=== PATIENT | male | born 1960 | race Caucasian/White ===

== ENCOUNTER 2019-07-08 10:01 | Outpatient (CLI) | payer OTHER, MEDICARE, SELFPAY ==
[2019-07-08 10:44] LABS: Alanine Aminotransferase 24 U/L (4-50); Albumin Level 4.6 g/dL (3.5-5.1); Alkaline Phosphatase 53 U/L (38-126); Aspartate Amino Transferase 28 U/L (17-59); Bilirubin,Total 0.6 mg/dL (0.2-1.3); Blood Urea Nitrogen 20 mg/dL (9-20); Calcium 9.3 mg/dL (8.4-10.2); Carbon Dioxide 28 mmol/L (22-30); Chloride 98 mmol/L (98-107); Cholesterol 193 mg/dL (0-200); Estimated Glomerular Filt Rate > 60; Glucose 165 mg/dL (75-110); HDL Direct 31 mg/dL; Potassium 4.8 mmol/L (3.4-5.0); Sodium 140 mmol/L (137-145); Triglycerides 258 mg/dL (<150)
[2019-07-08 10:55] LABS: LDL Cholesterol Direct 128 mg/dL
[2019-07-08 11:13] LABS: Prostate Specific Antigen 0.3 ng/mL (< OR = 4.0)
== END 2019-07-08 10:02 | disposition home or self-care (01) ==
PROVIDERS: Visit Provider Nurse Practitioner
DX: Z12.5 Encounter for screening for malignant neoplasm of prostate (principal); E78.5 Hyperlipidemia, unspecified
CPT/HCPCS: 36415; 80053; 80061; 84153; G0103

== ENCOUNTER 2019-11-17 08:27 | Outpatient (CLI) | payer OTHER, MEDICARE, SELFPAY ==
[2019-11-17 09:21] LABS: Add Urine Microscopic? YES; Appearance Urine Clear (Clear); Bilirubin Urine Negative (Negative); Blood Urine Negative (Negative); Color Urine Yellow (Yellow); Glucose Urine UA 1+ mg/dL (Negative); Ketones Urine Negative (Negative); Leukocyte Esterase Ur Negative LEU/UL (Negative); Mucus Urine Few /lpf; Nitrate Urine Negative (Negative); Protein Urine Negative (Negative); RBC Urine 0-2 /hpf (0-2); Specific Grav Ur 1.023 (1.001-1.035); Urobilinogen Urine Negative mg/dL (<2.0); WBC Urine 0-3 /hpf
[2019-11-17 09:27] LABS: Alanine Aminotransferase 22 U/L (4-50); Albumin Level 4.3 g/dL (3.5-5.1); Alkaline Phosphatase 71 U/L (38-126); Aspartate Amino Transferase 23 U/L (17-59); Bilirubin,Total 0.6 mg/dL (0.2-1.3); Blood Urea Nitrogen 16 mg/dL (9-20); Calcium 9.1 mg/dL (8.4-10.2); Carbon Dioxide 29 mmol/L (22-30); Chloride 101 mmol/L (98-107); Cholesterol 157 mg/dL (0-200); Estimated Glomerular Filt Rate > 60; Glucose 195 mg/dL (75-110); HDL Direct 30 mg/dL; Potassium 4.6 mmol/L (3.4-5.0); Sodium 137 mmol/L (137-145); Triglycerides 252 mg/dL (<150)
[2019-11-17 09:37] LABS: LDL Cholesterol Direct 99 mg/dL
[2019-11-17 09:56] LABS: Prostate Specific Antigen 0.3 ng/mL (< OR = 4.0)
== END 2019-11-17 08:28 | disposition home or self-care (01) ==
PROVIDERS: Visit Provider Internal Medicine
DX: E11.65 Type 2 diabetes mellitus with hyperglycemia (principal); I10 Essential (primary) hypertension; Z12.5 Encounter for screening for malignant neoplasm of prostate; E78.5 Hyperlipidemia, unspecified; R10.13 Epigastric pain; M54.9 Dorsalgia, unspecified
CPT/HCPCS: 36415; 80053; 80061; 81001; 84153; G0103

== ENCOUNTER 2019-11-18 08:01 | Outpatient (CLI) | payer OTHER, MEDICARE, SELFPAY ==
--- NOTE | ~2019-11-18 | XR_ITS ---
EXAMINATION: XR UGI w barium swallow DATE: 11/18/2019 08:51 INDICATION: Epigastric pain TECHNIQUE: The patient drank thick barium, gas-producing crystals, and thin barium. Fluoroscopic spot radiographs of the hypopharynx, esophagus, stomach and proximal small bowel were obtained. A total o f 1122 images were recorded. Fluoroscopy exposure time was 2.0 minutes. COMPARISON: None. FINDINGS: The pharynx is symmetric and without evidence of mass lesion or mucosal irregularity. The esophagus i s normal without mass or stricture. Esophageal motility is normal. There is no hiatal hernia. There w as no gastroesophageal reflux with provocative maneuvers. Evaluation of the stomach is somewhat limit ed by suboptimal gaseous distention on the double contrast portion examination. Along the lesser curv ature of the stomach there mucosal folds radiating from a persistent small collection of contrast adrian picious for gastric ulcer. There appears to be The visualized proximal small bowel is normal. IMPRESSION: 1. Suggestion of a gastric ulcer along the lesser curvature of the stomach. Consider endoscopy for fu rther evaluation. Reviewed, dictated and finalized at location A. IMPRESSION: 1. Suggestion of a gastric ulcer along the lesser curvature of the stomach. 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
== END 2019-11-18 08:02 | disposition home or self-care (01) ==
PROVIDERS: Visit Provider Internal Medicine
DX: R10.13 Epigastric pain (principal)
CPT/HCPCS: 74240

== ENCOUNTER 2019-12-02 07:34 | Outpatient (CLI) | payer OTHER, MEDICARE, SELFPAY ==
--- NOTE | ~2019-12-02 | US_ITS ---
EXAMINATION: US renal BI DATE: 12/02/2019 08:59 INDICATION: Unspecified abdominal pain TECHNIQUE: Multiple grayscale and Doppler ultrasound images of the kidneys were obtained. COMPARISON: CT, 10/17/2017 FINDINGS: The right kidney measures 12.3 x 5.8 x 6.6 cm. The left kidney measures 11.3 x 5.1 x 5.9 cm . The kidneys demonstrate normal parenchymal echogenicity. There is no hydronephrosis. The bladder is normal. IMPRESSION: 1. Normal kidneys without hydronephrosis. Reviewed, dictated and finalized at location B.
== END 2019-12-02 07:35 | disposition home or self-care (01) ==
LOC: ANHIMG 07:36
PROVIDERS: Visit Provider Internal Medicine
DX: R10.9 Unspecified abdominal pain (principal)
CPT/HCPCS: 76775

== ENCOUNTER 2020-01-07 09:56 | Outpatient (CLI) | payer OTHER, MEDICARE, SELFPAY ==
[2020-01-07 11:23] LABS: Alanine Aminotransferase 27 U/L (4-50); Albumin Level 4.6 g/dL (3.5-5.1); Alkaline Phosphatase 62 U/L (38-126); Anion Gap 6 mmol/L (8-16); Aspartate Amino Transferase 28 U/L (17-59); Bilirubin,Total 0.4 mg/dL (0.2-1.3); Blood Urea Nitrogen 19 mg/dL (9-20); Calcium 9.8 mg/dL (8.4-10.2); Carbon Dioxide 30 mmol/L (22-30); Chloride 99 mmol/L (98-107); Cholesterol 164 mg/dL (0-200); Estimated Glomerular Filt Rate > 60; Glucose 244 mg/dL (75-110); HDL Direct 31 mg/dL; Potassium 4.4 mmol/L (3.4-5.0); Sodium 135 mmol/L (137-145); Triglycerides 364 mg/dL (<150)
[2020-01-07 11:34] LABS: LDL Cholesterol Direct 98 mg/dL
== END 2020-01-07 09:57 | disposition home or self-care (01) ==
LOC: ANHLAB 10:00
PROVIDERS: Visit Provider Internal Medicine
DX: E11.42 Type 2 diabetes mellitus with diabetic polyneuropathy (principal); I10 Essential (primary) hypertension; E78.5 Hyperlipidemia, unspecified
CPT/HCPCS: 36415; 80053; 80061

== ENCOUNTER 2020-01-24 00:51 | Outpatient (CLI) | payer OTHER, MEDICARE, SELFPAY ==
[2020-01-24 18:37] LABS: SARS-CoV-2 RNA PCR Negative
== END 2020-01-24 00:52 | disposition home or self-care (01) ==
LOC: ANHCOVIDDT 00:51
PROVIDERS: Visit Provider Internal Medicine Gastroenterology
DX: Z01.818 Encounter for other preprocedural examination (principal); Z20.828 Contact with and (suspected) exposure to other viral communicable diseases
CPT/HCPCS: 87635; C9803; U0003

== ENCOUNTER 2020-01-27 00:48 | Day surgery (SDC) | payer OTHER, MEDICARE, SELFPAY ==
[2020-01-19 12:50] VITALS: BMI 30.7
[2020-01-27 12:10] VITALS: BMI 30.7
--- NOTE | 2020-01-27 12:22 | P.PNAN_ITS ---
Anes - Initial Pre Proc Eval Procedure: Operation Date: 01/27/20 13:15 Proposed Procedures p Esophagogastroduodenoscopy&Screen Colon - David Pelaez MD Date/Time: 01/27/20 12:22 Surgeon: David Pelaez MD Pre Op Diagnosis: Epigastric pain, benign neoplasm of colon Patient Data Age: 59 Gender: M Height: 5 ft 9 in Weight: 94.4 kg Allergies Allergy/AdvReac Type Severity Reaction Status Date / Time metformin Allergy Unknown Unknown Verified 01/27/20 12:05 NSAIDS (Non-Steroidal Allergy Unknown Unknown Verified 01/27/20 12:05 Anti-Inflamma meperidine AdvReac Severe SEVERE N/V Verified 01/27/20 12:05 WHEN TAKEN IN PAST Home Medications Medication Instructions Recorded Confirmed Type cholecalciferol (vitamin D3) 50 50 mcg PO DAILY 07/02/19 01/27/20 History mcg (2,000 unit) tablet fenofibrate 160 mg tablet 160 mg PO DAILY 07/02/19 01/27/20 History insulin glargine U-300 conc 300 20 unit SUB-Q DAILY 07/02/19 01/27/20 History unit/mL (1.5 mL) subcutaneous pen pramipexole 0.25 mg tablet 0.25 mg PO QPM #90 tablet 07/03/19 01/27/20 Rx metoprolol tartrate 25 mg tablet 25 mg PO .COMPLEX #270 tablet 07/17/19 01/27/20 Rx famotidine 40 mg tablet 40 mg PO DAILY #90 tablet 12/12/19 01/27/20 Rx pantoprazole 40 mg tablet,delayed 40 mg PO QAM #30 tablet 12/12/19 01/27/20 Rx release lisinopril 20 mg tablet 20 mg PO DAILY #90 tablet 12/30/19 01/27/20 Rx tadalafil 20 mg tablet 20 mg PO DAILY PRN #90 tablet 12/30/19 01/27/20 Rx atorvastatin 10 mg tablet 10 mg PO DAILY #30 tablet 01/08/20 01/27/20 Rx peg 3350-electrolytes 236 240 ml PO Q10M #4000 ml 01/14/20 Rx gram-22.74 gram-6.74 gram-5.86 gram solution insulin lispro [Humalog KwikPen 20 unit SUBCUT 01/19/20 History Insulin] Patient hx anesthesia problems: none Family hx anesthesia problems: none [facility] Past Medical History Medical History (Updated 01/07/20 @ 10:53 by David Pelaez MD) Abnormal computed tomography of stomach Adenomatous colon polyp Chronic bilateral low back pain with bilateral sciatica Diabetic polyneuropathy associated with type 2 diabetes mellitus Essential (primary) hypertension (02/12/19) Lumbago with sciatica, left side Mixed hyperlipidemia Type 2 diabetes mellitus with hyperglycemia Social History Social History Smoking status: Never smoker Alcohol intake: current Substance use type: marijuana Other substance usage details: Medical card-Gummies Living arrangements: with family Gender identity (if verbalized by the patient): Male Spiritual care concerns: No Anes - Eval Final PreProcedure Day of Procedure 01/27/20 12:22 Patient weight: obese Heart: regular rate and rhythm Lungs: clear to auscultation Airway: Mallampati scale class III Neurological: alert and oriented Last oral intake: >/= 8 hours ASA classification: III Emergent: no Anesthetic plan: proceed Anesthesia type and monitoring: general GIVS and standard monitoring Informed Consent: The patient's anesthetic plan and its attendant risks and benefits were discussed with the patient/family/POA. Questions were solicited and answers provided to the satisfaction of the patient/family/POA.
[2020-01-27] MEDS: LACTATED RINGERS 1,000 ML 150 ML IV CONT (12:24)
[2020-01-27 12:30] LABS: Glucose Point of Care 186 (65-105)
--- NOTE | 2020-01-27 12:35 | WPDHPUPDATE1 ---
History and Physical Update Update Date/Time: 01/27/20 12:35 History and Physical has been reviewed, including an updated exam of the patient. There are NO changes in the patient's condition. Risks, benefits, and alternatives have been discussed and questions answered. Patient agrees to proceed with procedure.
[2020-01-27 12:58] VITALS: BP 128/79; PULSE 86; RESP 17; O2SAT 99
[2020-01-27 13:08] VITALS: BP 135/74; PULSE 85; RESP 16; O2SAT 98
[2020-01-27 13:18] VITALS: BP 139/81; PULSE 78; RESP 21; O2SAT 100
[2020-01-27 13:27] LABS: Glucose Point of Care 175 (65-105)
== END 2020-01-27 13:34 | disposition home or self-care (01) ==
PROVIDERS: Visit Provider Internal Medicine Gastroenterology
PROC: 0DJ08ZZ Inspection of Upper Intestinal Tract, Via Natural or Artificial Opening Endoscopic (ICD-10-PCS; CPT 43235; principal; 2020-01-27 13:15)
DX: K62.1 Rectal polyp (principal); K52.89 Other specified noninfective gastroenteritis and colitis; K63.3 Ulcer of intestine; K29.50 Unspecified chronic gastritis without bleeding; K52.9 Noninfective gastroenteritis and colitis, unspecified; K57.30 Diverticulosis of large intestine without perforation or abscess without bleeding; K64.8 Other hemorrhoids; E11.42 Type 2 diabetes mellitus with diabetic polyneuropathy; Z79.4 Long term (current) use of insulin; I10 Essential (primary) hypertension; M54.32 Sciatica, left side; M54.31 Sciatica, right side; G89.29 Other chronic pain; F12.90 Cannabis use, unspecified, uncomplicated; E66.9 Obesity, unspecified; Z68.30 Body mass index [BMI] 30.0-30.9, adult
CPT/HCPCS: 45380; 43239; 88305; J2704; J7120

== ENCOUNTER 2020-03-17 08:40 | Outpatient (CLI) | payer OTHER, MEDICARE, SELFPAY ==
--- NOTE | 2020-03-17 08:42 | ECG_ITS ---
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
[2020-03-17 09:12] LABS: Anion Gap 8 mmol/L (8-16); Blood Urea Nitrogen 20 mg/dL (9-20); Calcium 9.8 mg/dL (8.4-10.2); Carbon Dioxide 31 mmol/L (22-30); Chloride 99 mmol/L (98-107); Estimated Glomerular Filt Rate > 60; Glucose 268 mg/dL (75-110); Potassium 4.4 mmol/L (3.4-5.0); Sodium 138 mmol/L (137-145)
== END 2020-03-17 08:41 | disposition home or self-care (01) ==
PROVIDERS: Anesthesiology; Visit Provider Surgery
DX: Z01.818 Encounter for other preprocedural examination (principal); E11.65 Type 2 diabetes mellitus with hyperglycemia
CPT/HCPCS: 36415; 80048; 93005

== ENCOUNTER 2020-03-20 01:44 | Outpatient (CLI) | payer OTHER, MEDICARE, SELFPAY ==
[2020-03-20 21:19] LABS: SARS-CoV-2 RNA PCR Positive
== END 2020-03-20 01:45 | disposition home or self-care (01) ==
LOC: ANHCOVIDDT 01:44
PROVIDERS: Visit Provider Surgery
DX: Z01.812 Encounter for preprocedural laboratory examination (principal); U07.1 COVID-19
CPT/HCPCS: 87635; C9803; U0003

== ENCOUNTER 2020-04-12 01:59 | Outpatient (CLI) | payer OTHER, MEDICARE, SELFPAY ==
[2020-04-12 18:52] LABS: SARS-CoV-2 RNA PCR Negative
== END 2020-04-12 02:00 | disposition home or self-care (01) ==
LOC: ANHCOVIDDT 02:00
PROVIDERS: Visit Provider Surgery
DX: Z01.818 Encounter for other preprocedural examination (principal); Z20.828 Contact with and (suspected) exposure to other viral communicable diseases
CPT/HCPCS: 87635; C9803; U0003

== ENCOUNTER 2020-04-15 00:14 | Day surgery (SDC) | payer OTHER, MEDICARE, SELFPAY ==
[2020-03-15 13:45] VITALS: BMI 30.2
--- NOTE | 2020-04-09 08:44 | PC.NURSE ---
PT STATES NO CHANGE IN HEALTH HX SINCE LAST INTERVIEW ON 03/15/20
--- NOTE | 2020-04-13 11:30 | PM.SD ---
Same Day Admit/Disch: HPI History of Present Illness Chief complaint: Right Inguinal Hernia Narrative: Twin Roldan is a 60 year old male Whom I know from repair of an incisional hernia in 2018. He presented recently with a right groin bulge with pain. He was noted on exam to have a right inguinal hernia. He had previous bilateral inguinal hernia repairs in the late s. He is taken to surgery now for recurrent right inguinal hernia repair. He also has a left lower quadrant bulge which has been noted previously. This is felt to be due to a denervation injury from previous spine surgery. The patient smokes both cigarettes and marijuana. He is diabetic. He has a history of chronic back pain with bilateral sciatica. [facility] Past Medical History Medical History Abnormal computed tomography of stomach Adenomatous colon polyp Chronic bilateral low back pain with bilateral sciatica Diabetic polyneuropathy associated with type 2 diabetes mellitus Essential (primary) hypertension (02/12/19) History of gastric ulcer History of kidney stones Lumbago with sciatica, left side Mixed hyperlipidemia Type 2 diabetes mellitus with hyperglycemia Surgical History Surgical History H/O inguinal hernia repair History of appendectomy History of arthroplasty of both shoulders History of back surgery History of umbilical hernia repair Family History Family History Mother Diabetes mellitus Father Patient's father is in good health Sibling Patient's sister is in good health Patient's brother is in good health Other Cerebrovascular accident Family history of allergic disorder Family history of cardiovascular disease Family history of malignant neoplasm Social History Social History Social History: Patient is a social smoker. Only when he is drinking. Smoking status: Light tobacco smoker Tobacco type: cigarettes Additional smoking assessment comments: OCCASIONAL SOCIAL SMOKER- UNABLE TO QUANTIFY Alcohol intake: current Drinks per week: 2 Substance use: current Substance use type: marijuana Other substance usage details: Medical card-Gummies Last use: DAILY Additional occupation/education comments: disabled Gender identity (if verbalized by the patient): Male Spiritual care concerns: No Same Day Admit/Disch: Med Pre-admit Medications Home Medications Medication Instructions Recorded Confirmed Type cholecalciferol (vitamin D3) 50 50 mcg PO DAILY 02/26/20 12/10/20 History mcg (2,000 unit) tablet fenofibrate 160 mg tablet 160 mg PO DAILY 07/02/19 04/15/20 History pramipexole 0.25 mg tablet 0.25 mg PO QPM #90 tablet 07/03/19 04/15/20 Rx lisinopril 20 mg tablet 20 mg PO DAILY #90 tablet 12/30/19 04/15/20 Rx tadalafil 20 mg tablet 20 mg PO DAILY PRN #90 tablet 12/30/19 04/15/20 Rx atorvastatin 10 mg tablet 10 mg PO DAILY #30 tablet 01/08/20 04/15/20 Rx Humalog KwikPen Insulin See Rx Instructions .ROUTE .COMPLEX 01/19/20 04/15/20 History mesalamine 1.2 gram tablet,delayed 3.6 gm PO DAILY 30 Days #90 tablet 02/03/20 04/15/20 Rx release pantoprazole 40 mg tablet,delayed 40 mg PO QAM #30 tablet 03/09/20 04/15/20 Rx release ascorbic acid (vitamin C) [Vitamin 500 mg PO DAILY 03/15/20 04/15/20 History C] elderberry fruit 200 mg PO DAILY 03/15/20 04/15/20 History metoprolol tartrate 25 mg PO DAILY 03/15/20 04/15/20 History metoprolol tartrate 50 mg PO HS 03/15/20 04/15/20 History oxycodone-acetaminophen [Percocet] 1 - 2 tablet PO Q6H PRN #30 tablet 04/15/20 Rx Exam Const: General: comfortable, no acute distress, alert and awake HENMT: Head: normocephalic and atraumatic Mouth: Yes Normal oral and palatal mucosa present Eyes: Conjunctivae: conjunctivae normal Pupils: Equal, rou
[2020-04-15 08:10] VITALS: BP 138/82; PULSE 74; RESP 18; TEMP 36; O2SAT 99
[2020-04-15] MEDS: ACETAMINOPHEN 500 MG TABLET 1000 MG PO (08:45)
[2020-04-15] MEDS: LACTATED RINGERS 1,000 ML 30 ML IV CONT (09:00)
[2020-04-15 09:09] LABS: Glucose Point of Care 158 (65-105)
--- NOTE | 2020-04-15 09:51 | WPDHPUPDATE1 ---
History and Physical Update Update Date/Time: 04/15/20 09:51 History and Physical has been reviewed, including an updated exam of the patient. There are NO changes in the patient's condition. Risks, benefits, and alternatives have been discussed and questions answered. Patient agrees to proceed with procedure.
--- NOTE | 2020-04-15 09:57 | WPDANESEPPF ---
Anes - Initial Pre Proc Eval Procedure: Operation Date: 04/15/20 10:30 Proposed Procedures p Right Inguinal Hernia Repair - Jermaine Chaudhry MD Date/Time: 04/15/20 09:57 Surgeon: Jermaine Chaudhry MD Pre Op Diagnosis: Right Inguinal Hernia Patient Data Age: 60 Gender: M Height: 5 ft 9 in Weight: 97.75 kg Last Vital Signs Temp 96.8 F L 04/15/20 08:10 Pulse 74 04/15/20 08:10 Resp 18 04/15/20 08:10 BP 138/82 04/15/20 08:10 Pulse Ox 99 04/15/20 08:10 Allergies Allergy/AdvReac Type Severity Reaction Status Date / Time meperidine AdvReac Severe SEVERE N/V Verified 04/15/20 08:48 metformin AdvReac Intermediate Nausea and Verified 04/15/20 08:48 Vomiting NSAIDS (Non-Steroidal AdvReac Unknown EAT MY Verified 04/15/20 08:48 Anti-Inflamma INSIDES UP Home Medications Medication Instructions Recorded Confirmed Type cholecalciferol (vitamin D3) 50 50 mcg PO DAILY 07/02/19 04/15/20 History mcg (2,000 unit) tablet fenofibrate 160 mg tablet 160 mg PO DAILY 07/02/19 04/15/20 History pramipexole 0.25 mg tablet 0.25 mg PO QPM #90 tablet 07/03/19 04/15/20 Rx lisinopril 20 mg tablet 20 mg PO DAILY #90 tablet 12/30/19 04/15/20 Rx tadalafil 20 mg tablet 20 mg PO DAILY PRN #90 tablet 12/30/19 04/15/20 Rx atorvastatin 10 mg tablet 10 mg PO DAILY #30 tablet 01/08/20 04/15/20 Rx insulin lispro [Humalog KwikPen See Rx Instructions .ROUTE .COMPLEX 01/19/20 04/15/20 History Insulin] mesalamine 1.2 gram tablet,delayed 3.6 gm PO DAILY 30 Days #90 tablet 02/03/20 04/15/20 Rx release pantoprazole 40 mg tablet,delayed 40 mg PO QAM #30 tablet 03/09/20 04/15/20 Rx release ascorbic acid (vitamin C) [Vitamin 500 mg PO DAILY 03/15/20 04/15/20 History C] elderberry fruit [Elderberry] 200 mg PO DAILY 03/15/20 04/15/20 History metoprolol tartrate 25 mg PO DAILY 03/15/20 04/15/20 History metoprolol tartrate 50 mg PO HS 03/15/20 04/15/20 History Laboratory Tests 04/15/20 09:04 POC Capillary Glucose 158 mg/dl H mg/dl (65-105) Patient hx anesthesia problems: none Family hx anesthesia problems: none PMFSH Past Medical History Medical History Abnormal computed tomography of stomach Adenomatous colon polyp Chronic bilateral low back pain with bilateral sciatica Diabetic polyneuropathy associated with type 2 diabetes mellitus Essential (primary) hypertension (02/12/19) History of gastric ulcer History of kidney stones Lumbago with sciatica, left side Mixed hyperlipidemia Type 2 diabetes mellitus with hyperglycemia Surgical History Surgical History H/O inguinal hernia repair History of appendectomy History of arthroplasty of both shoulders History of back surgery History of umbilical hernia repair Family History Family History Mother Diabetes mellitus Father Patient's father is in good health Sibling Patient's sister is in good health Patient's brother is in good health Other Cerebrovascular accident Family history of allergic disorder Family history of cardiovascular disease Family history of malignant neoplasm Social History Social History Social History: Patient is a social smoker. Only when he is drinking. Smoking status: Light tobacco smoker Tobacco type: cigarettes Additional smoking assessment comments: OCCASIONAL SOCIAL SMOKER- UNABLE TO QUANTIFY Alcohol intake: current Drinks per week: 2 Substance use: current Substance use type: marijuana Other substance usage details: Medical card-Gummies Last use: DAILY Additional occupation/education comments: disabled Gender identity (if verbalized by the patient): Male Spiritual care concerns: No Anes - Eval Final PreProcedure Day of Procedure 04/15/20 09:57 [place]
[2020-04-15] MEDS: ceFAZolin 2 GM/D5W 50 ML 2 GM/50 ML BAG IVPB (10:02)
[2020-04-15] MEDS: BUPIVACAINE HCL 0.5% PF 30 ML VIAL INFILTRATE (10:24)
[2020-04-15 11:55] VITALS: BP 123/68; PULSE 60; RESP 14; TEMP 36.3; O2SAT 99
--- NOTE | 2020-04-15 12:02 | PM.PROC ---
Procedure Note - Detailed Date of procedure: 04/15/20 Pre-op diagnosis: Recurrent right Inguinal Hernia Recurrent right inguinal hernia Post-op diagnosis: other (Direct recurrent hernia) Procedure performed: Repair of recurrent right inguinal hernia with polypropylene mesh Description of procedure: The patient was taken to surgery and IV sedation was administered. The right groin and genitalia were prepped and draped. Proposed incision was marked on the skin overlying the previous right inguinal scar. Local was infiltrated into the skin and the deeper subcutaneous tissues. Incision was made and deepened through the subcutaneous. Crossing veins were cauterized and divided. Dissection was carried through Alvina's fascia down to the external oblique aponeurosis. The aponeurosis was exposed as was the external ring. Additional local anesthesia was infiltrated deep to the aponeurosis in the area of the spermatic cord and inguinal canal contents. The aponeurosis was opened laterally and extended medially through the external ring. There was expected scar tissue as well as deep to the external oblique aponeurosis. The leaves of the aponeurosis were dissected free from the spermatic cord. The ileoinguinal nerve was divided laterally in the canal. The cord was then mobilized medially on a Keiry drain. The cord was dissected back to the internal ring. Dissection was then carried out the hernia sac from the cord. This was a direct hernia with a small base. There was a large amount of herniated content. It was dissected back to its neck. I scored circumferentially around the neck of the hernia sac. I slightly enlarged the defect so I could reduce the hernia defect. A ray nahid sponge was placed to keep the hernia reduced. I also dissected in the spermatic cord looking for an indirect hernia. None was found. It appeared the medial leaf of the external oblique had been used in the repair in the direct space. To free the medial aspect of the external oblique aponeurosis, a larger direct defect was found. I connected this opening with that of the small direct hernia defect as they were near one another. It was evident that nearly all of the direct space and inguinal canal floor would need to be reconstructed. I exposed Couper's ligament. I proceeded with a Christina repair to reconstruct the entire inguinal canal floor and femoral canal The repair was done with interrupted 0 Ethibond suture. This started medially, suturing the pubic tubercle to the transversalis fascia. Then, proceeding laterally, the transversalis fascia was sutured to Couper's ligament. A transition stitch was placed. This stitch was associated with some venous bleeding which was concerning for being the femoral vein or a branch of the femoral vein. I held pressure and stopped the bleeding. I then placed Surgiflo and held pressure. Hemostasis was then quite good. No further bleeding was noted the rest of the case even though the area was rechecked several times for bleeding. After this, we continued on with interrupted suture of 0 Ethibond suturing the transversalis fascia to the reflection of the inguinal ligament in interrupted fashion. The internal ring was reconstructed such that it would barely admit the tip of a clamp. I then cut a piece of soft polypropylene mesh to the appropriate size and placed it to cover the repair and inguinal canal floor. The cord was then placed back in the inguinal canal. The external oblique aponeurosis was closed with interrupted 3 0 Vicryl suture. Alvina's fascia was closed with interrupted 3 0 Vicryl suture. The subcutaneous was closed with interrupted 4 0 Vicryl suture. Four 0 Vicryl subcuticular skin sutures were placed. The skin was closed finally with a running 4 0 Monocryl skin suture. The wound was dressed with Exofin surgical adhesive. The patient was awakened and taken to recovery in good condition. Sponge and needle counts were correct x2.
[2020-04-15 12:25] VITALS: BP 114/67; PULSE 64; RESP 14
[2020-04-15 12:55] VITALS: BP 105/72; PULSE 72; RESP 14
[2020-04-15 13:25] VITALS: BP 120/79; PULSE 65; RESP 14
--- NOTE | 2020-04-15 13:58 | SUR.PHASEII ---
pt urinated without issue at 1250.
== END 2020-04-15 13:35 | disposition home or self-care (01) ==
PROVIDERS: Visit Provider Surgery
PROC: (CPT 49520; principal; 2020-04-15 10:30)
DX: K40.91 Unilateral inguinal hernia, without obstruction or gangrene, recurrent (principal); E11.42 Type 2 diabetes mellitus with diabetic polyneuropathy; I10 Essential (primary) hypertension; E78.2 Mixed hyperlipidemia; Z87.11 Personal history of peptic ulcer disease; F12.90 Cannabis use, unspecified, uncomplicated; R19.04 Left lower quadrant abdominal swelling, mass and lump; Z72.0 Tobacco use; M54.42 Lumbago with sciatica, left side; M54.41 Lumbago with sciatica, right side; G89.29 Other chronic pain; Z79.4 Long term (current) use of insulin; Z79.891 Long term (current) use of opiate analgesic
CPT/HCPCS: 49520; A9270; C1781; C9290; J0690; J1100; J2250; J2405; J2704; J3010; J7120

== ENCOUNTER 2020-06-02 07:16 | Outpatient (CLI) | payer OTHER, MEDICARE, SELFPAY ==
[2020-06-02 08:02] LABS: Hemoglobin A1C 7.9 % (<5.7)
[2020-06-02 08:05] LABS: Alanine Aminotransferase 26 U/L (4-50); Albumin Level 4.1 g/dL (3.5-5.1); Alkaline Phosphatase 50 U/L (38-126); Anion Gap 6 mmol/L (8-16); Aspartate Amino Transferase 26 U/L (17-59); Bilirubin,Total 0.6 mg/dL (0.2-1.3); Blood Urea Nitrogen 19 mg/dL (9-20); Calcium 9.1 mg/dL (8.4-10.2); Carbon Dioxide 31 mmol/L (22-30); Chloride 101 mmol/L (98-107); Cholesterol 160 mg/dL (0-200); Estimated Glomerular Filt Rate > 60; Glucose 161 mg/dL (75-110); HDL Direct 30 mg/dL; Sodium 138 mmol/L (137-145); Triglycerides 232 mg/dL (<150)
[2020-06-02 08:16] LABS: LDL Cholesterol Direct 103 mg/dL
[2020-06-02 08:42] LABS: Prostate Specific Antigen 0.3 ng/mL (< OR = 4.0)
[2020-06-02 08:53] LABS: Creatinine Urine 186.6 mg/dL
[2020-06-02 08:57] LABS: MALB Creatinine Ratio 5.4 mg/g (0-30); Microalbumin Urine Random 10.1 mg/L (0-16.7)
== END 2020-06-02 07:17 | disposition home or self-care (01) ==
PROVIDERS: Family Provider Internal Medicine; Visit Provider Nurse Practitioner
DX: E11.65 Type 2 diabetes mellitus with hyperglycemia (principal); E78.2 Mixed hyperlipidemia; Z12.5 Encounter for screening for malignant neoplasm of prostate
CPT/HCPCS: 36415; 80053; 80061; 82043; 83036; 84153; G0103

== ENCOUNTER 2020-10-19 14:15 | Outpatient (CLI) | payer OTHER, MEDICARE, SELFPAY ==
[2020-10-19 14:38] LABS: Basophils Absolute Auto 0.1 K/mm3 (0.0-0.1); Basophils Percent Auto 0.7 % (0.2-1.2); Eosinophils Absolute Auto 0.4 K/mm3 (0-0.3); Eosinophils Percent Auto 3.9 % (0-4.4); Hematocrit 46.3 % (42.0-52.0); Hemoglobin 15.4 g/dL (14.0-18.0); Immature Granulocyte Absolute 0.05 K/mm3 (0.00-0.031); Immature Granulocyte Percent A 0.5 % (0-0.5); Lymphocytes Absolute Auto 2.38 K/mm3 (0.9-3.2); Lymphocytes Percent Auto 25.3 % (18.3-44.2); Mean Corpuscular HGB Conc 33.3 g/dl (32-36); Mean Corpuscular Hemoglobin 31.9 pg (26-34); Mean Corpuscular Volume 95.9 fl (80-100); Mean Platelet Volume 10.7 fl (7.4-10.4); Monocytes Absolute Auto 0.6 K/mm3 (0.1-0.6); Monocytes Percent Auto 6.4 % (2.6-8.5); Neutrophils Absolute Auto 5.9 K/mm3 (1.3-6.7); Neutrophils Percent Auto 63.2 % (45.5-73.1); Platelet Count Result 265 k/mm3 (150-375); Red Blood Count 4.83 M/mm3 (4.6-6.20); Red Cell Distribution Width 12.4 % (11.5-14.5); White Blood Count 9.4 K/mm3 (4.5-10.0)
[2020-10-19 14:45] LABS: Alanine Aminotransferase 31 U/L (4-50); Albumin Level 4.4 g/dL (3.5-5.1); Alkaline Phosphatase 57 U/L (38-126); Anion Gap 9 mmol/L (8-16); Aspartate Amino Transferase 32 U/L (17-59); Bilirubin,Total 0.3 mg/dL (0.2-1.3); Blood Urea Nitrogen 20 mg/dL (9-20); Calcium 9.6 mg/dL (8.4-10.2); Carbon Dioxide 29 mmol/L (22-30); Chloride 103 mmol/L (98-107); Estimated Glomerular Filt Rate 56; Glucose 249 mg/dL (75-110); Lipase 151 U/L (23-300); Potassium 4.3 mmol/L (3.4-5.0); Sodium 141 mmol/L (137-145)
== END 2020-10-19 14:16 | disposition home or self-care (01) ==
PROVIDERS: Visit Provider Internal Medicine
DX: R10.13 Epigastric pain (principal); R10.9 Unspecified abdominal pain
CPT/HCPCS: 36415; 80053; 83690; 85025

== ENCOUNTER 2020-10-28 14:01 | Outpatient (CLI) | payer OTHER, MEDICARE, SELFPAY ==
--- NOTE | ~2020-10-28 | CT_ITS ---
EXAMINATION: CT abdomen wo con DATE: 10/28/2020 14:24 INDICATION: Epigastric pain and nausea TECHNIQUE: Computed tomography (CT) of the abdomen and pelvis was performed without intravenous contr ast. The dose-length product was 685.06 mGy-cm. Automated exposure control and iterative reconstructi on technique were employed. COMPARISON: CT dated 10/17/2017. FINDINGS: Lung bases are unremarkable. There is subsegmental atelectasis in the lung bases. Heart siz e normal. No significant pleural or pericardial effusion. Fatty infiltration of the liver. The spleen, pancreas, adrenal glands and kidneys are unremarkable. G allbladder is present. Fatty infiltration of the liver. Moderate debris in the stomach. There are gal lstones. Nonobstructive bowel gas pattern. No free air or free fluid. Surgical changes of the lower l umbar spine noted, incompletely visualized. No soft tissue abnormality. No acute osseous abnormality. IMPRESSION: 1. Cholelithiasis. 2: Hepatic steatosis. 3: Bibasilar subsegmental atelectasis. Reviewed, dictated and finalized at location B.
== END 2020-10-28 14:02 | disposition home or self-care (01) ==
PROVIDERS: Visit Provider Internal Medicine
DX: R10.13 Epigastric pain (principal); K80.20 Calculus of gallbladder without cholecystitis without obstruction; K76.0 Fatty (change of) liver, not elsewhere classified; R91.8 Other nonspecific abnormal finding of lung field
CPT/HCPCS: 74150

== ENCOUNTER 2020-10-31 10:49 | Observation (INO) | payer OTHER, MEDICARE, SELFPAY ==
[2020-10-31] VITALS (18 sets, daily range): BP systolic 118–145; BP diastolic 68–87; PULSE 68–99; RESP 10–18; TEMP 35.8–36.4; O2SAT 92–99; BMI 30.9
--- NOTE | ~2020-10-31 | CT_ITS ---
EXAMINATION: CT abdomen pelvis w con DATE: 10/31/2020 15:02 INDICATION: Abdominal pain. TECHNIQUE: Computed tomography (CT) of the abdomen and pelvis was performed with 100 mL Omnipaque 350 intravenous contrast. Automated exposure control and iterative reconstruction technique were employe d. The dose-length product was 896.57 mGy-cm. COMPARISON: CT abdomen and pelvis 10/28/2020 FINDINGS: The visualized portions of the lung bases demonstrate mild atelectasis. Calcified lung nodu les and calcified hilar and mediastinal lymph nodes are consistent with old granulomatous disease. No pleural effusion. The heart size is normal. No pericardial effusion. There is diffuse hepatic steato sis. The gallbladder is distended. There are gallstones in the gallbladder. There is fat stranding ad jacent to the gallbladder. There are gallstones and/or mucosal thickening involving the cystic duct. The spleen, pancreas, and right adrenal gland are normal. There is an 8 mm mass of fat in left adrena l gland, consistent with a myelolipoma. There is cortical thinning of the kidneys. There is a right i nguinal hernia containing fat and a portion of the bladder. There is diverticulosis of the colon with out evidence of diverticulitis. The appendix is not visualized. There are no pathologically enlarged lymph nodes. There is no free intraperitoneal fluid. There are changes of anterior and posterior fusi on procedures in lumbar spine. There is a chronic compression fracture of T8. There is mild thoracolu mbar spondylosis. IMPRESSION: 1. Acute cholecystitis. 2. Right inguinal hernia containing fat and a portion of the bladder. Reviewed, dictated and finalized at location A.
--- NOTE | ~2020-10-31 | US_ITS ---
US abdomen limited INDICATION: Cholelithiasis. Epigastric pain with nausea. PROCEDURE: Realtime right upper abdominal ultrasound. COMPARISON: No prior studies for comparison. FINDINGS: The pancreas is normal without focal mass or pancreatic ductal dilation. There are hypoech oic areas near the gallbladder, likely focal fatty infiltration. There is normal directional flow in the portal vein. There are gallstones with gallbladder sludge. No significant gallbladder wall thickening. Common rafael e duct measures 5.5 mm. No sonographic Cornelius's sign. IMPRESSION: 1: Cholelithiasis with gallbladder sludge. 2: Probable focal fatty infiltration near the gallbladder fossa. Reviewed, dictated and finalized at location A.
[2020-10-31 11:30] LABS: Basophils Absolute Auto 0.1 K/mm3 (0.0-0.1); Basophils Percent Auto 0.6 % (0.2-1.2); Eosinophils Absolute Auto 0.4 K/mm3 (0-0.3); Eosinophils Percent Auto 2.7 % (0-4.4); Hematocrit 46.8 % (42.0-52.0); Hemoglobin 15.5 g/dL (14.0-18.0); Immature Granulocyte Absolute 0.09 K/mm3 (0.00-0.031); Immature Granulocyte Percent A 0.6 % (0-0.5); Lymphocytes Absolute Auto 2.06 K/mm3 (0.9-3.2); Lymphocytes Percent Auto 14.3 % (18.3-44.2); Mean Corpuscular HGB Conc 33.1 g/dl (32-36); Mean Corpuscular Hemoglobin 31.6 pg (26-34); Mean Corpuscular Volume 95.5 fl (80-100); Mean Platelet Volume 10.5 fl (7.4-10.4); Monocytes Percent Auto 6.7 % (2.6-8.5); Neutrophils Absolute Auto 10.9 K/mm3 (1.3-6.7); Neutrophils Percent Auto 75.1 % (45.5-73.1); Platelet Count Result 334 k/mm3 (150-375); Red Cell Distribution Width 12.2 % (11.5-14.5); White Blood Count 14.5 K/mm3 (4.5-10.0)
[2020-10-31 11:38] LABS: Add Urine Microscopic? YES; Appearance Urine Clear (Clear); Bilirubin Urine Negative (Negative); Blood Urine Negative (Negative); Color Urine Yellow (Yellow); Glucose Urine UA 1+ mg/dL (Negative); Ketones Urine Negative (Negative); Leukocyte Esterase Ur Negative LEU/UL (Negative); Mucus Urine Few /lpf; Nitrate Urine Negative (Negative); Protein Urine 1+ mg/dL (Negative); RBC Urine 0-2 /hpf (0-2); Specific Grav Ur 1.023 (1.001-1.035); Squamous Epithelial Cell Urine Rare /hpf (Few); Urobilinogen Urine Negative mg/dL (<2.0); WBC Urine 0-3 /hpf
[2020-10-31 11:41] LABS: Alanine Aminotransferase 29 U/L (4-50); Albumin Level 4.6 g/dL (3.5-5.1); Alkaline Phosphatase 59 U/L (38-126); Anion Gap 9 mmol/L (8-16); Aspartate Amino Transferase 32 U/L (17-59); Bilirubin,Total 0.6 mg/dL (0.2-1.3); Blood Urea Nitrogen 17 mg/dL (9-20); Carbon Dioxide 27 mmol/L (22-30); Chloride 100 mmol/L (98-107); Estimated CRCL calculation 72 ml/min; Estimated Glomerular Filt Rate > 60; Glucose 223 mg/dL (75-110); Lipase 118 U/L (23-300); Potassium 4.8 mmol/L (3.4-5.0); Sodium 136 mmol/L (137-145)
--- NOTE | 2020-10-31 12:27 | ED.ABDPAIN ---
HPI - Abdominal Pain General Chief Complaint: Abdominal Pain Stated Complaint: gallstone pain Time Seen by Provider: 10/31/20 12:04 Source: patient and RN notes reviewed Mode of arrival: ambulatory Limitations: no limitations History of Present Illness HPI narrative: This is a 60 year old male who presents for evaluation of epigastric abdominal pain. He reports pain for the past 3 weeks. His pain waxes and wanes. He reports he has pain for several days and then his pain will decrease. His states she is concerned because he developed fever 100.9F on Sunday. He is also having associated nausea. He states his pain radiates to his back. He was evaluated by his PCP this week , and he had CT scan performed. His scan shows that he has cholelithiasis, and he has been referred to Dr. Chaudhry, but he does not have an appointment yet. Related Data Home Medications Medication Instructions Recorded Confirmed cholecalciferol (vitamin D3) 50 50 mcg PO DAILY 07/02/19 10/31/20 mcg (2,000 unit) tablet fenofibrate 160 mg tablet 160 mg PO DAILY 07/02/19 10/31/20 ascorbic acid (vitamin C) [Vitamin 500 mg PO DAILY 03/15/20 10/31/20 C] elderberry fruit 200 mg PO DAILY 03/15/20 10/31/20 metoprolol tartrate 75 mg PO DAILY 03/15/20 10/31/20 atorvastatin 10 mg PO HS 10/31/20 10/31/20 phentermine 37.5 mg PO BID 10/31/20 10/31/20 Allergies Allergy/AdvReac Type Severity Reaction Status Date / Time meperidine AdvReac Severe SEVERE N/V Verified 11/01/20 10:52 metformin AdvReac Intermediate Nausea and Verified 11/01/20 10:52 Vomiting NSAIDS (Non-Steroidal AdvReac Unknown EAT MY Verified 11/01/20 10:52 Anti-Inflamma INSIDES UP Review of Systems Review of Systems: All systems reviewed & are unremarkable except as noted in HPI and below PMFSH Past Medical History Medical History Adenomatous colon polyp Chronic bilateral low back pain with bilateral sciatica Colitis Ileus aphthae they noted on EGD in 01/2020. On mesalamine per Dr. Epperson. Diabetic polyneuropathy associated with type 2 diabetes mellitus Essential (primary) hypertension (02/12/19) History of gastric ulcer History of kidney stones Insulin dependent type 2 diabetes mellitus Hemoglobin A1c was 8.3% on 09/16/2020. Mixed hyperlipidemia Screening for prostate cancer Surgical History Surgical History History of appendectomy History of bilateral inguinal hernia repair History of cervical spinal surgery History of incisional hernia repair History of lumbar surgery History of repair of rotator cuff Bilateral. History of tonsillectomy and adenoidectomy History of umbilical hernia repair History of vasectomy Family History Family History Mother Diabetes mellitus Dementia Father Patient's father is in good health Cerebrovascular accident Sibling Patient's brother is in good health Patient's sister is in good health Social History Social History Social History: The patient lives in [place] with his . They have 3 children who are healthy. He is on disability. He will occasionally smoke a cigarette if he is drinking alcohol. On average he has 2 alcoholic beverages a week. Smokes marijuana for neuropathy pain. He designates his , Cat, as his surrogate decision maker. Code status: Full code. Exam Const: General: no acute distress and alert Orientation/consciousness: patient oriented x3 Resp: Effort & Inspection: normal respiratory effort and no retractions Auscultation: clear to auscultation bilaterally Cardio: Rate: regular rate Rhythm: regular rhythm GI: GI Palp: Yes Soft to palpation, Yes Tenderness to palpation present (GI) and No Guarding due to palpation present (GI) Auscultation: normal bowel sounds
--- NOTE | 2020-10-31 13:02 | PC.NURSE ---
Patient to ultrasound.
[2020-10-31] MEDS: ONDANSETRON INJ 4 MG/2 ML VIAL IV PUSH (13:33)
[2020-10-31] MEDS: HYDROmorphone HCL INJ (*CRX) 1 MG/ML SYR 0.5 MG IV PUSH ×2 (13:36→15:44)
[2020-10-31] MEDS: PANTOPRAZOLE SODIUM IV 40 MG VIAL IV PUSH (13:39)
[2020-10-31 13:54] LABS: Glucose Point of Care 173 mg/dl (65-105)
--- NOTE | 2020-10-31 13:56 | PC.NURSE ---
Patient states he has not eaten anything and is worried his blood sugar is low. POC glucose currently 173.
--- NOTE | 2020-10-31 16:00 | PM.IMHP ---
H&P: HPI History of Present Illness Date/Time: 10/31/20 18:00 Chief Complaint: Abdominal pain. Narrative: This is a very pleasant 60-year-old male with insulin-dependent diabetes, history of colitis and ileitis currently on mesalamine, and hypertension presented to the emergency department earlier today via private vehicle from home with complaints of abdominal pain. Over the last several weeks he has had recurrent issues with upper abdominal pain that seems to occur mostly at night time. He describes a compression like or bandlike pain after around his upper abdomen which will occasionally become sharp and shooting in nature and radiates through to the back. The pain is colicky in nature and has gotten more frequent over the past several days. Associated symptoms include low-grade fever of 100.9? and nausea. He was seen by his primary care provider on 10/19/2020 for evaluation and a subsequent CT of the abdomen showed cholelithiasis and hepatic steatosis. CT of the abdomen and pelvis done today shows findings of acute cholecystitis and he is being admitted in this setting. At the time my evaluation he rates his pain 5/10. He denies aggravating or significant alleviating factors. No emesis or diarrhea. Review of Systems Review of Systems: Narrative: Twelve systems were reviewed with pertinent positives and negatives as per HPI. He has had a low-grade fever as detailed above. No cold or flu symptoms. No chest pain or shortness of breath. No cough. He denies melena and hematochezia. Normal bowel movement yesterday. No acholic stools. Occasional blurry vision if his glucose is high but not in recently. No polydipsia or polyuria. Average glucose is around 200. Except as documented, all other systems were reviewed and are negative. [facility] Past Medical History Medical History (Updated 10/31/20 @ 20:44 by Sarah Woodard PA-C) Adenomatous colon polyp Chronic bilateral low back pain with bilateral sciatica Colitis Ileus aphthae they noted on EGD in 01/2020. On mesalamine per Dr. Epperson. Diabetic polyneuropathy associated with type 2 diabetes mellitus Essential (primary) hypertension (02/12/19) History of gastric ulcer History of kidney stones Insulin dependent type 2 diabetes mellitus Hemoglobin A1c was 8.3% on 09/16/2020. Mixed hyperlipidemia Screening for prostate cancer Surgical History Surgical History (Updated 10/31/20 @ 20:39 by Sarah Woodard PA-C) History of appendectomy History of bilateral inguinal hernia repair History of cervical spinal surgery History of incisional hernia repair History of lumbar surgery History of repair of rotator cuff Bilateral. History of tonsillectomy and adenoidectomy History of umbilical hernia repair History of vasectomy Family History Family History Mother Diabetes mellitus Dementia Father Patient's father is in good health Cerebrovascular accident Sibling Patient's brother is in good health Patient's sister is in good health Social History Social History (Updated 10/31/20 @ 20:41 by Sarah Woodard PA-C) Social History: The patient lives in [place] with his . They have 3 children who are healthy. He is on disability. He will occasionally smoke a cigarette if he is drinking alcohol. On average he has 2 alcoholic beverages a week. Smokes marijuana for neuropathy pain. He designates his , Cat, as his surrogate decision maker. Code status: Full code. Meds Home Medications and Allergies Home Medications Medication Instructions Recorded Confirmed Type cholecalciferol (vitamin D3) 50 50 mcg PO DAILY 07/02/19 10/31/20 History mcg (2,000 unit) tablet fenofibrate 160 mg tablet 160 mg PO DAILY 07/02/19 10/31/20 History ascorbic acid (vitamin C) [Vitamin 500 mg PO DAILY 03/15/20 10/31/20 History C] elderberry fruit 200 mg PO DAILY 03/15/20 10/31/20 History metoprolol tartr
--- NOTE | 2020-10-31 16:44 | ADMGEN ---
This patient, Twin Roldan, was admitted to Medical Room 346-01. Patient/family oriented to hospital policies and general routines including ID bracelet, bed and alarms, visiting hours, pain management, procedures, bathroom and other care routines, personal items, smoking policy, room service/diet, and visiting hours. Information on how to activate the Rapid Response Team has been discussed. Patient/Family are encouraged to report perceived risks to care and to ask questions if they do not understand what they are told or what they should do.
[2020-10-31] MEDS: MORPHINE SULFATE (*CRX) 4 MG/ML INJ IV PUSH ×2 (17:50→20:42)
[2020-10-31 18:59] LABS: Glucose Point of Care 150 mg/dl (65-105)
[2020-10-31 21:17] LABS: Hemoglobin A1C 8.3 % (<5.7)
[2020-10-31] MEDS: SODIUM CHLORIDE 0.9% IV 1,000 ML 100 ML IV CONT (21:20)
[2020-10-31] MEDS: METOPROLOL TARTRATE 25 MG TABLET PO (22:04)
[2020-10-31 23:13] LABS: Glucose Point of Care 167 mg/dl (65-105)
[2020-11-01] VITALS (15 sets, daily range): BP systolic 119–158; BP diastolic 65–79; PULSE 62–90; RESP 11–18; TEMP 35.7–37.3; O2SAT 93–100
[2020-11-01] MEDS: MORPHINE SULFATE (*CRX) 4 MG/ML INJ IV PUSH ×5 (01:48→21:52)
[2020-11-01 05:37] LABS: Glucose Point of Care 151 mg/dl (65-105)
[2020-11-01 05:50] LABS: Basophils Absolute Auto 0.1 K/mm3 (0.0-0.1); Basophils Percent Auto 0.6 % (0.2-1.2); Eosinophils Absolute Auto 0.3 K/mm3 (0-0.3); Eosinophils Percent Auto 4.2 % (0-4.4); Hematocrit 42.6 % (42.0-52.0); Hemoglobin 14.3 g/dL (14.0-18.0); Immature Granulocyte Absolute 0.03 K/mm3 (0.00-0.031); Immature Granulocyte Percent A 0.4 % (0-0.5); Lymphocytes Absolute Auto 2.59 K/mm3 (0.9-3.2); Lymphocytes Percent Auto 33.6 % (18.3-44.2); Mean Corpuscular HGB Conc 33.6 g/dl (32-36); Mean Corpuscular Hemoglobin 31.4 pg (26-34); Mean Corpuscular Volume 93.6 fl (80-100); Mean Platelet Volume 10.2 fl (7.4-10.4); Monocytes Absolute Auto 0.5 K/mm3 (0.1-0.6); Monocytes Percent Auto 6.8 % (2.6-8.5); Neutrophils Absolute Auto 4.2 K/mm3 (1.3-6.7); Neutrophils Percent Auto 54.4 % (45.5-73.1); Platelet Count Result 279 k/mm3 (150-375); Red Blood Count 4.55 M/mm3 (4.6-6.20); Red Cell Distribution Width 11.9 % (11.5-14.5); White Blood Count 7.7 K/mm3 (4.5-10.0)
[2020-11-01 06:05] LABS: Alanine Aminotransferase 24 U/L (4-50); Alkaline Phosphatase 50 U/L (38-126); Anion Gap 8 mmol/L (8-16); Aspartate Amino Transferase 22 U/L (17-59); Bilirubin,Total 0.7 mg/dL (0.2-1.3); Blood Urea Nitrogen 13 mg/dL (9-20); Carbon Dioxide 26 mmol/L (22-30); Chloride 103 mmol/L (98-107); Estimated CRCL calculation 79 ml/min; Estimated Glomerular Filt Rate > 60; Glucose 149 mg/dL (75-110); INR 1.1; Magnesium 1.7 mg/dL (1.6-2.3); Prothrombin Time 14.3 Seconds (11.1-14.7); Sodium 137 mmol/L (137-145)
[2020-11-01 06:06] LABS: Partial Thromboplastin Time 29.2 SECONDS (22.3-36.8)
[2020-11-01] MEDS: SODIUM CHLORIDE 0.9% IV 1,000 ML 100 ML IV CONT (07:22)
[2020-11-01 07:27] LABS: Glucose Point of Care 150 mg/dl (65-105)
--- NOTE | 2020-11-01 07:43 | PM.CNGS ---
Assessment and Plan Assessment and plan (1) Cholelithiasis with acute cholecystitis: Code(s): K80.00 - Calculus of gallbladder with acute cholecystitis without obstruction Status: Acute Assessment and Plan: Continuing to have pain even though white count is normal this morning. I am unable to provide his surgery today. However my partner Dr. Li is available and agrees to proceed with surgery. I explained the procedure of laparoscopic cholecystectomy to the patient. I explained the usual recovery and the time in the hospital. All questions were answered. He will go ahead this morning with the procedure per Dr. López. (2) Insulin dependent type 2 diabetes mellitus: Code(s): E11.9 - Type 2 diabetes mellitus without complications; Z79.4 - terminal manager (current) use of insulin Status: Chronic Assessment and Plan: hemoglobin A1c this admission is 8.3. (3) Colitis: Code(s): K52.9 - Noninfective gastroenteritis and colitis, unspecified Status: Chronic Assessment and Plan: Sees Dr. Epperson. On mesalamine. (4) Chronic back pain: Code(s): M54.9 - Dorsalgia, unspecified; G89.29 - Other chronic pain Status: Chronic (5) Smoker: Code(s): F17.200 - Nicotine dependence, unspecified, uncomplicated Status: Chronic (6) Diabetic polyneuropathy associated with type 2 diabetes mellitus: Code(s): E11.42 - Type 2 diabetes mellitus with diabetic polyneuropathy Status: Chronic History of Present Illness Consult details Consult date: 11/01/20 Reason for consult: gallstones Requesting physician: Nicole Salinas MD Narrative: patient is a 60-year-old man well known to me from previous repair of a mid abdominal incisional hernia with mesh in 1999 18. I also repaired a recurrent right inguinal hernia on Mr. Roldan it last April. He came to the emergency room yesterday with a 3 week history of epigastric abdominal pain that radiated to his back. Vicente he had noted some fever to 100.9. He has also had nausea. He came to the emergency room where he was noted to have tenderness in the epigastric area and right upper quadrant. A gallbladder ultrasound showed gallstones and sludge. A CT scan was done that showed acute cholecystitis and also possibly a recurrent right inguinal hernia. Patient was admitted and started on IV Zosyn. He is still requiring analgesics but they do help. [place] [id number]. Liver function tests were normal. He is admitted now for cholecystitis with gallstones and persistent pain and symptoms. He is also an insulin-dependent diabetic. Review of Systems Review of Systems: All systems reviewed & are unremarkable except as noted in HPI and below Constitutional: Constitutional: Denies chills, Reports fever(s), Reports malaise and Reports poor appetite Cardiovascular: Cardiovascular: Denies chest pain, Denies diaphoresis, Denies dyspnea and Denies paroxysmal nocturnal dyspnea Respiratory: Respiratory: Denies chest congestion, Denies cough and Denies dyspnea Gastrointestinal: Gastrointestinal: Reports abdominal pain and Reports nausea Integumentary/Breasts: Skin/Breast: Denies lesions and Denies rash PMFSH Past Medical History Medical History Adenomatous colon polyp Chronic bilateral low back pain with bilateral sciatica Colitis Ileus aphthae they noted on EGD in 01/2020. On mesalamine per Dr. Epperosn. Diabetic polyneuropathy associated with type 2 diabetes mellitus Essential (primary) hypertension (02/12/19) History of gastric ulcer History of kidney stones Insulin dependent type 2 diabetes mellitus Hemoglobin A1c was 8.3% on 09/16/2020. Mixed hyperlipidemia Screening for prostate cancer Surgical History Surgical History History of appendectomy History of bilateral inguinal
--- NOTE | 2020-11-01 09:41 | PC.NURSE ---
PATIENT TAKEN TO PREOP BY BED, CONSENTS SIGNED.
[2020-11-01] MEDS: KETOROLAC 15 MG/ML VIAL (*BKC) IV PUSH (10:01)
[2020-11-01] MEDS: ACETAMINOPHEN 500 MG TABLET 1000 MG PO (10:01)
--- NOTE | 2020-11-01 10:13 | WPDANESEPPF ---
Anes - Initial Pre Proc Eval Procedure: Operation Date: 11/01/20 15:00 Proposed Procedures p Laparoscopic Cholecystectomy - Matheus Li DO Date/Time: 11/01/20 10:13 Surgeon: Chanda Baeza PA-C Pre Op Diagnosis: Acute cholecystitis Patient Data Age: 60 Gender: M Height: 1.75 m Weight: 95.1 kg Last Vital Signs Temp 36.4 C L 11/01/20 09:46 Pulse 76 11/01/20 09:46 Resp 16 11/01/20 09:46 BP 142/74 H 11/01/20 09:46 Pulse Ox 98 11/01/20 09:46 Allergies Allergy/AdvReac Type Severity Reaction Status Date / Time meperidine AdvReac Severe SEVERE N/V Verified 10/31/20 16:37 metformin AdvReac Intermediate Nausea and Verified 10/31/20 16:37 Vomiting NSAIDS (Non-Steroidal AdvReac Unknown EAT MY Verified 10/31/20 16:37 Anti-Inflamma INSIDES UP Home Medications Medication Instructions Recorded Confirmed Type cholecalciferol (vitamin D3) 50 50 mcg PO DAILY 07/02/19 10/31/20 History mcg (2,000 unit) tablet fenofibrate 160 mg tablet 160 mg PO DAILY 07/02/19 10/31/20 History ascorbic acid (vitamin C) [Vitamin 500 mg PO DAILY 03/15/20 10/31/20 History C] elderberry fruit 200 mg PO DAILY 03/15/20 10/31/20 History metoprolol tartrate 75 mg PO DAILY 03/15/20 10/31/20 History lisinopril 20 mg tablet 20 mg PO DAILY #90 tablet 07/12/20 10/31/20 Rx pantoprazole 40 mg tablet,delayed 40 mg PO QAM #90 tablet 07/12/20 10/31/20 Rx release insulin NPH isoph U-100 human 100 10 unit SUBCUT DAILY 90 Days #9 ml 09/16/20 10/31/20 Rx unit/mL (3 mL) subcutaneous pen insulin lispro 200 unit/mL (3 mL) 45 unit SUBCUT DAILY PRN 90 Days 10/22/20 10/31/20 Rx subcutaneous pen #40 ml hydrocodone 5 mg-acetaminophen 325 1 tablet PO Q8H PRN #30 tablet 10/27/20 10/31/20 Rx mg tablet atorvastatin 10 mg PO HS 10/31/20 10/31/20 History phentermine 37.5 mg PO BID 10/31/20 10/31/20 History Laboratory Tests 10/31/20 10/31/20 10/31/20 11:23 11:23 11:23 WBC 14.5 K/mm3 H K/mm3 (4.5-10.0) RBC 4.90 M/mm3 M/mm3 (4.6-6.20) Hgb 15.5 g/dL g/dL (14.0-18.0) Hct 46.8 % % (42.0-52.0) MCV 95.5 fl fl (80-100) MCH 31.6 pg pg (26-34) MCHC 33.1 g/dl g/dl (32-36) RDW 12.2 % % (11.5-14.5) Plt Count 334 k/mm3 k/mm3 (150-375) MPV 10.5 fl H fl (7.4-10.4) Immature Gran % (Auto) 0.6 % H % (0-0.5) Neut % (Auto) 75.1 % H % (45.5-73.1) Lymph % (Auto) 14.3 % L % (18.3-44.2) [place] % (Auto) 6.7 % % (2.6-8.5) Eos % (Auto) 2.7 % % (0-4.4) Baso % (Auto) 0.6 % % (0.2-1.2) Lymph # (Auto) 2.06 K/mm3 K/mm3 (0.9-3.2) [place] # (Auto) 1.0 K/mm3 H K/mm3 (0.1-0.6) Eos # (Auto) 0.4 K/mm3 H K/mm3 (0-0.3) Baso # (Auto) 0.1 K/mm3 K/mm3 (0.0-0.1) Abs Immat Gran (auto) 0.09 K/mm3 H K/mm3 (0.00-0.031) Absolute Neuts (auto) 10.9 K/mm3 H K/mm3 (1.3-6.7) Absolute Nucleated RBC 0.0 K/mm3 K/mm3 (0.0-0.012) Nucleated RBC % 0.0 % % (0.0-0.2) PT INR APTT Sodium 136 mmol/L L mmol/L (137-145) Potassium 4.8 mmol/L mmol/L (3.4-5.0) Chloride 100 mmol/L mmol/L (98-107) Carbon Dioxide 27 mmol/L mmol/L (22-30) Anion Gap 9 mmol/L mmol/L (8-16) BUN 17 mg/dL mg/dL (9-20) Creatinine 1.10 mg/dL mg/dL (0.7-1.3) Estim Creat Clear Calc 72 ml/min ml/min Estimated GFR > 60 (59 - ) Glucose 223 mg/dL H mg/dL (75-110) POC Capillary Glucose Hemoglobin A1c 8.3 % H % (<5.7) Calcium 10.0 mg/dL mg/dL (8.4-10.2) Magnesium Total Bilirubin 0.6 mg/dL mg/dL (0.2-1.3) AST 32 U/L U/L (17-59) ALT 29 U/L U/L (4-50) Alkaline Phosphatase 59 U/L U/L (38-126) Tot
--- NOTE | 2020-11-01 10:46 | WPDHPUPDATE1 ---
History and Physical Update Update Date/Time: 11/01/20 10:46 History and Physical has been reviewed, including an updated exam of the patient. There are NO changes in the patient's condition. Risks, benefits, and alternatives have been discussed and questions answered. Patient agrees to proceed with procedure.
[2020-11-01] MEDS: LACTATED RINGERS 1,000 ML 30 ML IV CONT ×2 (10:54→12:08)
[2020-11-01] MEDS: BUPIVACAINE/EPINEPHRINE 0.5% 10 ML VIAL 30 ML INFILTRATE (11:40)
--- NOTE | 2020-11-01 12:08 | W.PM.PROC2 ---
Procedure Note - Detailed Date of Procedure 11/01/20 Pre-op Diagnosis Acute cholecystitis Post-op Diagnosis same Procedure Performed Laparoscopic Cholecystectomy Surgeon Matheus Li, DO Anesthesia general and local (0.5% bupivacaine with epinephrine) Indications this is a 6-year-old man who presented to the emergency department with epigastric abdominal pain. He has been having pain for the past 3 weeks and this has been gradually becoming more severe. CT the abdomen and pelvis showed evidence of acute cholecystitis and gallbladder ultrasound also confirmed cholelithiasis and gallbladder sludge. Discussions were made with the patient about treatment options and decision was made to proceed with laparoscopic cholecystectomy, possible open. Findings Laparoscopic cholecystectomy was performed. Due to the patient's prior surgical history including an anterior approach for lumbar spine surgery and a periumbilical hernia repair with mesh, I chose to make my initial incision in the left subcostal region and a 5 mm Optiview trocar was used to advance into the abdominal cavity. Once I gained access to the abdominal cavity laparoscopically, I carefully inspected the abdominal cavity and there did not appear to be any significant adhesions up to the periumbilical region. Was able to place my camera port just superior to where the mesh ended in the supraumbilical region. The patient was found to have a recurrent right inguinal hernia inspection as well. The patient was then placed in reverse Trendelenburg position and the gallbladder was inspected. The gallbladder was tense and dilated. A laparoscopic aspirating needle was used to aspirate about 60 mL of purulence at appearing fluid. There was a significant amount of induration around the neck of the gallbladder, but eventually I was able to identify the cystic duct and cystic artery. While dissecting the gallbladder off of the liver bed, the gallbladder wall was somewhat friable and there was some bile spillage as well as a few small stones that escaped. I was able to retrieve the stones using a laparoscopic spoon grasper. Due to some of the spillage of the purulent-appearing bile and to some minor bleeding at the liver bed, I chose to place a 19 round Jimbo drain within the gallbladder fossa. I did irrigate the abdominal cavity with sterile saline until no other bleeding or other abnormalities were noted. The gallbladder was sent to the lab for pathology. Description of Procedure Procedure as well as risks, benefits, and alternatives were discussed with patient. Written consent was obtained and placed in chart prior to procedure. The patient was brought back to surgical suite. Patient was placed in supine position on operating table. Time-out was done to confirm patient and procedure. Patient was then intubated by the anesthesia department. Abdomen was prepped and draped in sterile fashion using chlorhexidine prep. 0.5% bupivacaine with epinephrine was infiltrated at each site of incision. A 5 millimeter incision was made near the umbilicus, and a 5 millimeter Optiview trocar was advanced through the abdominal layers under direct visualization. Once inside the abdominal cavity, carbon dioxide was insufflated to create a pneumoperitoneum. The camera was inserted and the abdomen was inspected. No immediate abnormalities were identified. The patient was placed in reverse Trendelenburg position and rotated slightly to the left. An 11 millimeter incision was made in the subxiphoid region, and an 11 millimeter trocar was inserted under direct visualization. Two 5 millimeter incisions were made in the right upper quadrant, and two 5 millimeter trocars were inserted under direct visualization. The gallbladder was identified and grasped at the fundus and retracted superiorly. It was then grasped at the infundibulum retracted laterally. Careful dissection around the neck of the gallbladder was performed usi
[2020-11-01 12:22] LABS: Glucose Point of Care 194 mg/dl (65-105)
[2020-11-01] MEDS: fentaNYL CITRATE INJ (*CRX) 100 MCG/2 ML VIAL 25 MCG IV PUSH ×4 (12:38→12:55)
--- NOTE | 2020-11-01 13:11 | PM.IMPN ---
Progress Note: A&P Assessment and Plan (1) Cholelithiasis with acute cholecystitis: Code(s): K80.00 - Calculus of gallbladder with acute cholecystitis without obstruction Status: Acute Assessment and Plan: S/P cholecystectomy with drain placement POD #0 - no complications thus far - continue Zosyn -advance diet as tolerated (2) Insulin dependent type 2 diabetes mellitus: Code(s): E11.9 - Type 2 diabetes mellitus without complications; Z79.4 - intermodal dispatcher (current) use of insulin Status: Chronic Assessment and Plan: Last glucose 194 -EMR states he takes 5U with each meal if he eats and also uses a SSI. If he is >200 he takes 2u, >250 4u, >300u 6u, >350 8u, >400 10u -He also takes NPH 10u daily -Continue SSI for now and may need to adjust this once he is eating (3) Essential (primary) hypertension: Onset Date: 02/12/19 Code(s): I10 - Essential (primary) hypertension Status: Acute Assessment and Plan: Last bp 152/78 after sx -continue lisinopril and metoprolol (4) Colitis: Code(s): K52.9 - Noninfective gastroenteritis and colitis, unspecified Status: Chronic Assessment and Plan: Patient on mesalamine after EGD in 01/2020 showed ileal aphthae. No acute issues. Time Spent With Patient Time with patient: 25 - 35 minutes Subjective Date/time seen: 11/01/20 13:11 Interval history: Pt is a 60 y/o male here for acute cholecystitis. Patient was seen in PACU and a little somnolent from surgery. he arouses easily and tells me he is in not in any pain at this time and has no shortness of breath or chest pain. RN at bedside states that he did well during surgery and has no complications. Review of Systems Review of Systems: All systems reviewed & are unremarkable except as noted in HPI and below Exam Narrative: Exam Narrative: General: Well developed well nourished patient in NAD HEENT: normocephalic Neck: supple Neuro: Alert and oriented with no neurological deficits noted CV:RRR Resp:CTA Abd: Soft, non distended. Drain noted to the RUQ. + bowel sounds. incision sites clean and dry without bleeding or Dehiscence Extremities: No swelling, erythema, or pain to palpation. Objective Data Vital Signs Vital Signs: Vital Signs - 24 hr 10/31/20 13:42 10/31/20 13:50 10/31/20 14:00 Temperature Pulse Rate 77 74 71 Respiratory Rate 13 12 18 Blood Pressure 134/79 Pulse Oximetry 99 97 94 10/31/20 14:01 10/31/20 14:06 10/31/20 14:09 Temperature 97.5 F L 97.5 F L Pulse Rate 68 Respiratory Rate 10 L Blood Pressure 138/76 Pulse Oximetry 96 10/31/20 14:15 10/31/20 15:15 10/31/20 16:14 Temperature 97.5 F L Pulse Rate 70 73 Respiratory Rate 14 15 Blood Pressure Pulse Oximetry 92 94 10/31/20 16:17 10/31/20 16:35 10/31/20 20:37 Temperature 97.2 F L 96.5 F L Pulse Rate 74 73 73 Respiratory Rate 18 16 16 Blood Pressure 118/81 135/72 141/68 H Pulse Oximetry 99 98 98 10/31/20 22:04 11/01/20 01:55 11/01/20 05:59 Temperature 96.8 F L Pulse Rate 99 73 Respiratory Rate 16 Blood Pressure 119/65 Pulse Oximetry 95 96 11/01/20 09:46 11/01/20 12:08 11/01/20 12:20 Temperature 97.5 F L 99.2 F Pulse Rate 76 74 67 Respiratory Rate 16 11 L 14 Blood Pressure 142/74 H 157/79 H 158/77 H Pulse Oximetry 98 100 97 11/01/20 12:35 11/01/20 12:50 11/01/20 13:05 Temperature Pulse Rate 62 66 63 Respiratory Rate 12 14 12 Blood Pressure 152/72 H 152/71 H 152/78 H Pulse Oximetry 96 95 96 Intake/Output Intake/Output: Intake & Output 10/29/20 10/30/20 10/31/20 11/01/20 23:59 23:59 23:59 23:59 Intake Total 700 2000 Output Total 800 1210 Balance -100 790 Meds/Results Medications: Active Medications Generic Name Dose Route Start Last Admin Trade Name Freq PRN Reason Stop Dose Admin Acetaminophen 650 mg 11/01/20 13:09 Acetaminophen 325 Mg Tablet
--- NOTE | 2020-11-01 13:25 | PC.NURSE ---
Patient back from Pacu, vitals stable. Denies pain at this time. Glued sites to abdomen are dry and intact, including michael drain. Ice chips given, will monitor.
[2020-11-01] MEDS: lisinopriL 20 MG TABLET PO (14:32)
[2020-11-01] MEDS: PANTOPRAZOLE 40 MG TABLET PO (14:32)
[2020-11-01] MEDS: METOPROLOL TARTRATE 50 MG TAB PO (14:33)
[2020-11-01] MEDS: LACTATED RINGERS 1,000 ML 100 ML IV CONT (14:35)
[2020-11-01 15:57] LABS: Glucose Point of Care 234 mg/dl (65-105)
[2020-11-01] MEDS: INSULIN ASPART (*BKC) 100 UNITS/ML SUB-Q (16:05)
[2020-11-01] MEDS: HYDROcodone/acetaminophen (*CRX) 5-325 MG TABLET 1 TAB PO (18:32)
[2020-11-01] MEDS: METOPROLOL TARTRATE 25 MG TABLET PO (20:16)
[2020-11-01] MEDS: ENOXAPARIN 30 MG/0.3 ML SYRINGE SUB-Q (20:16)
[2020-11-01] MEDS: ATORVASTATIN 10 MG TABLET PO (20:16)
[2020-11-01 22:00] LABS: Glucose Point of Care 265 mg/dl (65-105)
[2020-11-01] MEDS: HYDROcodone/acetaminophen (*CRX) 7.5-325 MG TABLET 1 TAB PO (22:35)
[2020-11-02] MEDS: MORPHINE SULFATE (*CRX) 2 MG/ML INJ IV PUSH (00:26)
[2020-11-02] MEDS: HYDROcodone/acetaminophen (*CRX) 7.5-325 MG TABLET 1 TAB PO ×2 (04:20→09:47)
[2020-11-02 05:44] VITALS: BP 160/79; PULSE 83; RESP 16; TEMP 36.6; O2SAT 93
[2020-11-02] MEDS: MORPHINE SULFATE (*CRX) 4 MG/ML INJ IV PUSH ×2 (05:47→11:33)
[2020-11-02 06:12] LABS: Hematocrit 42.3 % (42.0-52.0); Mean Corpuscular HGB Conc 33.1 g/dl (32-36); Mean Corpuscular Hemoglobin 31.7 pg (26-34); Mean Corpuscular Volume 95.9 fl (80-100); Mean Platelet Volume 10.4 fl (7.4-10.4); Platelet Count Result 263 k/mm3 (150-375); Red Blood Count 4.41 M/mm3 (4.6-6.20); Red Cell Distribution Width 11.9 % (11.5-14.5); White Blood Count 11.8 K/mm3 (4.5-10.0)
[2020-11-02 06:22] LABS: Alanine Aminotransferase 56 U/L (4-50); Albumin Level 3.9 g/dL (3.5-5.1); Alkaline Phosphatase 44 U/L (38-126); Anion Gap 5 mmol/L (8-16); Aspartate Amino Transferase 75 U/L (17-59); Bilirubin,Total 0.6 mg/dL (0.2-1.3); Blood Urea Nitrogen 22 mg/dL (9-20); Calcium 9.2 mg/dL (8.4-10.2); Carbon Dioxide 31 mmol/L (22-30); Chloride 100 mmol/L (98-107); Estimated CRCL calculation 72 ml/min; Estimated Glomerular Filt Rate > 60; Glucose 170 mg/dL (75-110); Potassium 4.1 mmol/L (3.4-5.0); Sodium 136 mmol/L (137-145)
[2020-11-02 08:03] LABS: Glucose Point of Care 166 mg/dl (65-105)
--- NOTE | 2020-11-02 08:06 | WPDANESPN ---
Anes - Prog Note Post-Op Date/Time: 11/02/20 08:06 Cardiovascular status: normal Respiratory status: normal Airway patency: baseline Mental status: baseline Post-Op hydration status: normal Vital Signs: Last Vital Signs Temp 97.9 F 11/02/20 05:44 Pulse 83 11/02/20 05:44 Resp 16 11/02/20 05:44 BP 160/79 H 11/02/20 05:44 Pulse Ox 93 11/02/20 05:44 Pain Score (VAS): 2 I/O: Intake & Output 11/01/20 11/02/20 11/02/20 23:59 07:59 15:59 Intake Total 580 550 Output Total 1265 1200 Balance -305 -650 Laboratory Tests 11/02/20 05:53 11/02/20 05:53 11/01/20 11/01/20 11/01/20 07:50 12:12 15:54 WBC RBC Hgb Hct MCV MCH MCHC RDW Plt Count MPV Sodium Potassium Chloride Carbon Dioxide Anion Gap BUN Creatinine Estim Creat Clear Calc Estimated GFR Glucose POC Capillary Glucose 194 H 234 H Calcium Total Bilirubin AST ALT Alkaline Phosphatase Total Protein Albumin Blood Type O Positive Antibody Screen Negative 11/01/20 11/02/20 11/02/20 21:57 05:53 05:53 WBC 11.8 H RBC 4.41 L Hgb 14.0 Hct 42.3 MCV 95.9 MCH 31.7 MCHC 33.1 RDW 11.9 Plt Count 263 MPV 10.4 Sodium 136 L Potassium 4.1 Chloride 100 Carbon Dioxide 31 H Anion Gap 5 L BUN 22 H Creatinine 1.10 Estim Creat Clear Calc 72 Estimated GFR > 60 Glucose 170 H POC Capillary Glucose 265 H Calcium 9.2 Total Bilirubin 0.6 AST 75 H ALT 56 H Alkaline Phosphatase 44 Total Protein 7.0 Albumin 3.9 Blood Type Antibody Screen 11/02/20 07:43 WBC RBC Hgb Hct MCV MCH MCHC RDW Plt Count MPV Sodium Potassium Chloride Carbon Dioxide Anion Gap BUN Creatinine Estim Creat Clear Calc Estimated GFR Glucose POC Capillary Glucose 166 H Calcium Total Bilirubin AST ALT Alkaline Phosphatase Total Protein Albumin Blood Type Antibody Screen Post-procedural complaints: nausea Patient Feedback: Patient satisfied with anesthetic care.
[2020-11-02 09:41] VITALS: PULSE 91
[2020-11-02] MEDS: lisinopriL 20 MG TABLET PO (09:41)
[2020-11-02] MEDS: METOPROLOL TARTRATE 50 MG TAB PO (09:41)
[2020-11-02] MEDS: ENOXAPARIN 30 MG/0.3 ML SYRINGE SUB-Q (09:42)
[2020-11-02] MEDS: FENOFIBRATE 160 MG TABLET PO (09:42)
[2020-11-02 10:54] VITALS: BP 152/71; PULSE 83; RESP 20; TEMP 36; O2SAT 97
[2020-11-02] MEDS: INSULIN ASPART (*BKC) 100 UNITS/ML SUB-Q (11:41)
[2020-11-02 11:42] LABS: Glucose Point of Care 280 mg/dl (65-105)
--- NOTE | 2020-11-02 12:06 | PM.PNGS ---
Progress Note: A&P Assessment and Plan (1) Acute calculous cholecystitis: Code(s): K80.00 - Calculus of gallbladder with acute cholecystitis without obstruction Status: Acute Assessment and Plan: POD#1 and doing well. DELPHINE drain with serosanguineous output. Tolerating a low fat diet. Pain controlled. Okay to discharge from a surgical standpoint. Discussed discharge instructions with the patient and answered all questions. Will d/c DELPHINE drain. Continue another 7 days of oral antibiotics. Follow-up in 2 weeks. Additional Plan I have discussed the plan of care with Dr. Li. Subjective Subjective Date/Time Seen: 11/02/20 12:06 Post Op day: 1 (lap rico) Patient reports: tolerating a regular diet (low fat), voiding w/o difficulty, no flatus, no bowel movement and afebrile Interval history: Patient reports incisional soreness and pain but well controlled with oral analgesics. No nausea, vomiting, or bloating. No other complaints. Review of Systems Review of Systems: All systems reviewed & are unremarkable except as noted in HPI and below Exam Const: General: comfortable, no acute distress, alert and awake Orientation/consciousness: patient oriented x3 Resp: Effort & Inspection: normal respiratory effort Auscultation: clear to auscultation bilaterally Cardio: Rate: regular rate Rhythm: regular rhythm GI: Inspection: non-distended and incision (Abdominal incisions clean and dry, glue intact.) GI Palp: Yes Soft to palpation, Yes Tenderness to palpation present (GI) (incisional) and No Guarding due to palpation present (GI) Auscultation: normal bowel sounds Other: DELPHINE drain with serosanguineous drainage Skin: General skin exam: normal color Neuro: General: moves all extremities and no focal motor deficits Extrem: General: no clubbing, cyanosis or edema and no calf tenderness Psych: Mental Status: mental status grossly normal Insight: Good insight present (Psych) Judgement: Good judgement present (Psych) Objective Data Vital Signs Vital Signs: Vital Signs - 24 hr 11/01/20 12:08 11/01/20 12:20 11/01/20 12:35 Temperature 99.2 F Pulse Rate 74 67 62 Respiratory Rate 11 L 14 12 Blood Pressure 157/79 H 158/77 H 152/72 H Pulse Oximetry 100 97 96 11/01/20 12:50 11/01/20 13:05 11/01/20 13:33 Temperature Pulse Rate 66 63 Respiratory Rate 14 12 Blood Pressure 152/71 H 152/78 H Pulse Oximetry 95 96 93 11/01/20 13:40 11/01/20 14:10 11/01/20 14:33 Temperature 96.3 F L 96.2 F L Pulse Rate 81 71 90 Respiratory Rate 16 16 Blood Pressure 148/73 H 154/74 H Pulse Oximetry 93 95 11/01/20 15:10 11/01/20 20:10 11/01/20 20:16 Temperature 97.3 F L 96.5 F L Pulse Rate 85 68 68 Respiratory Rate 18 18 Blood Pressure 152/72 H 149/73 H Pulse Oximetry 93 96 11/02/20 05:44 11/02/20 09:41 11/02/20 10:54 Temperature 97.9 F 96.8 F L Pulse Rate 83 91 83 Respiratory Rate 16 20 Blood Pressure 160/79 H 152/71 H Pulse Oximetry 93 97 Intake/Output Intake/Output: Intake & Output 10/30/20 10/31/20 11/01/20 11/02/20 23:59 23:59 23:59 23:59 Intake Total 700 2700 790 Output Total 800 2935 1215 Balance -100 225 -425 Meds/Results Medications: Active Medications Generic Name Dose Route Start Last Admin Trade Name Freq PRN Reason Stop Dose Admin Acetaminophen 650 mg 11/01/20 13:09 Acetaminophen 325 Mg Tablet PO Q6H PRN Mild Pain (1-3) or Fever Hydrocodone Bitart/Acetaminophen 1 tab 11/01/20 13:09 11/01/20 18:32 Hydrocodone/Acetaminophen (*Crx) 5-325 Mg Tablet PO 1 tab Q4H PRN Administration Pain Rated 4-6 Hydrocodone Bitart/Acetaminophen 1 tab 11/01/20 13:09 11/02/20 09:47 Hydrocodone/Acetaminophen (*Crx) 7.5-325 Mg Tablet PO 1 tab Q4H PRN Administration Pain Rated 7-10 Atorvastatin Calcium 10 mg 11/01/20 21:00 11/01/20 20:16 Atorvastatin 10 Mg Tablet PO 10 mg HS BRADLEY Administration Dextrose 12.5 gm
--- NOTE | 2020-11-02 12:53 | PM.DS ---
DS: Admitting Diagnosis Admitting Diagnosis Admitting Diagnosis: Acute cholecystitis DS: Discharge Diagnosis Discharge Diagnosis (1) Cholelithiasis with acute cholecystitis: Code(s): K80.00 - Calculus of gallbladder with acute cholecystitis without obstruction Status: Acute Assessment and Plan: Date of Admission 10/31/20 Date of Discharge 11/02/20 Mr. Roldan is a pleasant 60yo M with insulin-dependent diabetes, history of colitis and ileitis currently on mesalamine, and hypertension who presented to the ED for evaluation of abdominal pain worsening over the last several weeks. CT abd/pelvis demonstrated findings consistent with acute cholecystitis. He was started on IV Zosyn and evaluated by the general surgery service. He underwent laparoscopic cholecystectomy 11/01/[address] Li. A drain was also placed during surgery that was subsequently removed POD#1 prior to discharge. His pain was improved and his diet was advanced gradually. He was tolerating a low fat diabetic diet prior to discharge. He was encouraged to continue regular blood glucose monitoring to help ensure tight glycemic control but also to hopefully avoid hypoglycemia as his diet and appetite return to normal. He is discharged with one week of oral antibiotics with levaquin and flagyl per general surgery recommendations. He is instructed to follow up with Dr Li's office in 2 weeks and to also follow up with his PCP. He is hemodynamically stable for discharge home on 11/02/20. (2) Insulin dependent type 2 diabetes mellitus: Code(s): E11.9 - Type 2 diabetes mellitus without complications; Z79.4 - senior care (current) use of insulin Status: Chronic Assessment and Plan: Resume his home insulin regimen which may need adjusted at home while his diet and appetite return to normal. Educated patient on checking blood sugars regularly. (3) Essential (primary) hypertension: Onset Date: 02/12/19 Code(s): I10 - Essential (primary) hypertension Status: Acute Assessment and Plan: Stable maintained on his home lisinopril and metoprolol. (4) Colitis: Code(s): K52.9 - Noninfective gastroenteritis and colitis, unspecified Status: Chronic Assessment and Plan: Patient on mesalamine after EGD in 01/2020 showed ileal aphthae. No acute issues. DS: Summary Hospital Course Hospital Course: See above Time Spent with Patient Time attestation: Total time spent providing and/or coordinating discharge services: 35 minutes Exam Narrative: Exam Narrative: General: Well developed well nourished patient in NAD HEENT: normocephalic Neck: supple Neuro: Alert and oriented with no neurological deficits noted CV:RRR Resp:CTA Abd: Soft, non distended. Drain noted to the RUQ being removed by RN at time of my exam. + bowel sounds. incision sites clean and dry without bleeding or dehiscence Extremities: No swelling, erythema, or pain to palpation. DS: Data Data Completed and Pending Pending studies at discharge: Pending at discharge 11/01/20 11:47 Surgical [PTH] Routine Labs on day of discharge: Last Vital Signs Temp 96.8 F L 11/02/20 10:54 Pulse 83 11/02/20 10:54 Resp 20 11/02/20 10:54 BP 152/71 H 11/02/20 10:54 Pulse Ox 97 11/02/20 10:54 ITS Impressions Abdomen Ultrasound 10/31/20 13:26 IMPRESSION: 1: Cholelithiasis with gallbladder sludge. 2: Probable focal fatty infiltration near the gallbladder fossa. Abdomen/Pelvis CT 10/31/20 15:05 IMPRESSION: 1. Acute cholecystitis. 2. Right inguinal hernia containing fat and a portion of the bladder. Laboratory Tests 11/02/20 05:53 11/02/20 05:53 11/02/20 11:30 POC Capillary Glucose 280 H Discharge Plan Discharge Attending phys
[2020-11-02] MEDS: PANTOPRAZOLE 40 MG TABLET PO (13:11)
== END 2020-11-02 14:40 | disposition home or self-care (01) ==
LOC: ANHED 12:14 → ANH3MED 16:03
PROVIDERS: Physician Assistant; Surgery; Admitting Provider Family Medicine; Emergency Provider General Practice; PCP Internal Medicine; Visit Provider Internal Medicine
PROC: 0FT44ZZ Resection of Gallbladder, Percutaneous Endoscopic Approach (ICD-10-PCS; CPT 47562; principal; 2020-11-01 15:00)
DX: K80.00 Calculus of gallbladder with acute cholecystitis without obstruction (principal); K52.9 Noninfective gastroenteritis and colitis, unspecified; E11.42 Type 2 diabetes mellitus with diabetic polyneuropathy; I10 Essential (primary) hypertension; F17.210 Nicotine dependence, cigarettes, uncomplicated; Z79.4 Long term (current) use of insulin
CPT/HCPCS: 47562; 36415; 74177; 76705; 80053; 81001; 82948; 83036; 83690; 83735; 85025; 85027; 85610; 85730; 86850; 86900; 86901; 88304; 96361; 96365; 96375; 96376; 99285; A9270; C9113; G0378; J0131; J1100; J1170; J1650; J1815; J1885; J2270; J2405; J2543; J2704; J2710; J3010; J7030; J7120; Q9967

== ENCOUNTER 2021-03-17 07:20 | Outpatient (CLI) | payer OTHER, MEDICARE, SELFPAY ==
[2021-03-17 08:11] LABS: Cholesterol 139 mg/dL (0-200); HDL Direct 32 mg/dL; Triglycerides 231 mg/dL (<150)
[2021-03-17 08:23] LABS: LDL Cholesterol Direct 79 mg/dL
[2021-03-17 08:41] LABS: Prostate Specific Antigen 0.3 ng/mL (< OR = 4.0)
== END 2021-03-17 07:21 | disposition home or self-care (01) ==
LOC: ANHLAB 07:25
PROVIDERS: PCP Internal Medicine; Visit Provider Internal Medicine
DX: E78.5 Hyperlipidemia, unspecified (principal); Z12.5 Encounter for screening for malignant neoplasm of prostate
CPT/HCPCS: 36415; 80061; 84153; G0103

== ENCOUNTER 2021-03-20 10:05 | Emergency (ER) | payer OTHER, MEDICARE, SELFPAY ==
[2021-03-20 10:42] VITALS: BP 153/85; PULSE 98; RESP 18; TEMP 36.4; O2SAT 99
--- NOTE | 2021-03-20 10:51 | ED.EAR ---
HPI - Ear Problem General Chief complaint: Ear Stated complaint: lt ear hurts Time Seen by Provider: 03/20/21 10:45 Source: patient, family and RN notes reviewed Mode of arrival: ambulatory Limitations: no limitations History of Present Illness HPI Narrative: Twin is a 60-year-old male patient who ambulated into the [facility] with his cane. Patient is accompanied by his . Patient states he has a 7-day history of sinus congestion sinus pain left ear pain. He also has pain on the left trapezius muscle. Patient states he has been drywalling and has increased pain on the left shoulder and back of his head. Patient rates the pain at a 6/10. MD Complaint: ear pain Location: left ear Related Data Home Medications Medication Instructions Recorded Confirmed cholecalciferol (vitamin D3) 50 50 mcg PO DAILY 07/02/19 11/16/20 mcg (2,000 unit) tablet elderberry fruit 200 mg PO DAILY 03/15/20 11/16/20 Allergies Allergy/AdvReac Type Severity Reaction Status Date / Time meperidine AdvReac Severe SEVERE N/V Verified 03/20/21 10:45 metformin AdvReac Intermediate Nausea and Verified 03/20/21 10:45 Vomiting NSAIDS (Non-Steroidal AdvReac Unknown EAT MY Verified 03/20/21 10:45 Anti-Inflamma INSIDES UP Review of Systems Review of Systems: CONSTITUTIONAL: Denies body aches, fever, chills, or sweats. EYES: Denies visual changes, redness, or discharge. ENT: Denies rhinorrhea, +congestion, sore throat, + left otalgia. CARDIOVASCULAR: Denies chest pain, palpitations, or edema. RESPIRATORY: Denies cough or dyspnea. GASTROINTESTINAL: Denies abdominal pain, nausea, vomiting, or diarrhea. GENITOURINARY: Denies dysuria or hematuria. SKIN: Denies rash, itching, or wounds. MUSCULOSKELETAL: Denies back pain, joint pain, or myalgia.+ left shoulder pain NEUROLOGIC: Denies headache, numbness, tingling, or weakness. PSYCH: Denies depression or anxiety. All systems reviewed & are unremarkable except as noted in HPI and below PMFSH Past Medical History Medical History Adenomatous colon polyp Chronic bilateral low back pain with bilateral sciatica Colitis Ileus aphthae they noted on EGD in 01/2020. On mesalamine per Dr. Epperson. Diabetic polyneuropathy associated with type 2 diabetes mellitus Essential (primary) hypertension (02/12/19) History of gastric ulcer History of kidney stones Insulin dependent type 2 diabetes mellitus Hemoglobin A1c was 8.3% on 09/16/2020. Mixed hyperlipidemia Screening for prostate cancer Surgical History Surgical History History of appendectomy History of bilateral inguinal hernia repair History of cervical spinal surgery History of incisional hernia repair History of lumbar surgery History of repair of rotator cuff Bilateral. History of tonsillectomy and adenoidectomy History of umbilical hernia repair History of vasectomy S/P cholecystectomy Family History Family History Mother Diabetes mellitus Dementia Father Patient's father is in good health Cerebrovascular accident Sibling Patient's brother is in good health Patient's sister is in good health Social History Social History Social History: The patient lives in [place] with his . They have 3 children who are healthy. He is on disability. He will occasionally smoke a cigarette if he is drinking alcohol. On average he has 2 alcoholic beverages a week. Smokes marijuana for neuropathy pain. He designates his , Cat, as his surrogate decision maker. Code status: Full code. Smoking status: Former smoker Alcohol use details: beer Exam Narrative: GENERAL: Well-appearing, well-nourished, and in no acute distress. HEAD: Normocephalic, atraumatic. EYES: EOMI. No redness or drainage. Conjun
== END 2021-03-20 11:06 | disposition home or self-care (01) ==
PROVIDERS: Emergency Provider Nurse Practitioner Family; PCP Internal Medicine
DX: J01.10 Acute frontal sinusitis, unspecified (principal); S46.812A Strain of other muscles, fascia and tendons at shoulder and upper arm level, left arm, initial encounter; X50.3XXA Overexertion from repetitive movements, initial encounter; E11.42 Type 2 diabetes mellitus with diabetic polyneuropathy; I10 Essential (primary) hypertension; E78.2 Mixed hyperlipidemia
CPT/HCPCS: 99213; G0463

== ENCOUNTER → 2021-10-21 04:59 | Outpatient (CLI) | payer MEDICARE, SELFPAY ==
[2021-10-21 11:44] LABS: SARS-CoV-2 RNA PCR Negative
== END ==
PROVIDERS: PCP Internal Medicine; Visit Provider Internal Medicine
DX: R05.9 Cough, unspecified (principal); Z20.822 Contact with and (suspected) exposure to COVID-19
CPT/HCPCS: C9803; U0003; U0005

== ENCOUNTER 2021-11-18 07:58 | Outpatient (CLI) | payer MEDICARE, SELFPAY ==
[2021-11-18 08:46] LABS: Creatinine Urine 136.5 mg/dL
[2021-11-18 08:51] LABS: MALB Creatinine Ratio 8.9 mg/g (0-30); Microalbumin Urine Random 12.1 mg/L (0-16.7)
[2021-11-18 09:21] LABS: Free T4 Free Thyroxine 1.23 ng/mL (0.78-2.19); Vitamin D 25 Hydroxy 55.7 ng/mL
[2021-11-18 13:09] LABS: Alanine Aminotransferase 17 U/L (6-50); Albumin Level 4.4 g/dL (3.5-5.1); Alkaline Phosphatase 53 U/L (38-126); Anion Gap 6 mmol/L (8-16); Aspartate Amino Transferase 20 U/L (17-59); Bilirubin,Total 0.7 mg/dL (0.2-1.3); Blood Urea Nitrogen 20 mg/dL (9-20); Calcium 9.2 mg/dL (8.4-10.2); Carbon Dioxide 31 mmol/L (22-30); Chloride 103 mmol/L (98-107); Cholesterol 145 mg/dL (0-200); Estimated Glomerular Filt Rate > 60; Glucose 130 mg/dL (65-110); HDL Direct 29 mg/dL; Potassium 3.8 mmol/L (3.4-5.0); Sodium 140 mmol/L (137-145); Triglycerides 177 mg/dL (<150)
[2021-11-18 13:38] LABS: Thyroid Stimulating Hormone 0.913 uIU/mL (0.465-4.680)
[2021-11-18 13:46] LABS: LDL Cholesterol Direct 81 mg/dL
== END 2021-11-18 07:59 | disposition home or self-care (01) ==
LOC: ANHLAB 08:02
PROVIDERS: PCP Internal Medicine; Visit Provider Nurse Practitioner Family
DX: E11.9 Type 2 diabetes mellitus without complications (principal); E78.2 Mixed hyperlipidemia; I10 Essential (primary) hypertension; Z79.4 Long term (current) use of insulin
CPT/HCPCS: 36415; 80053; 80061; 82043; 82306; 82607; 84439; 84443

== ENCOUNTER 2022-02-20 08:42 | Outpatient (CLI) | payer MEDICARE, SELFPAY ==
[2022-02-20 09:08] LABS: Hematocrit 48.1 % (42.0-52.0); Hemoglobin 16.1 g/dL (14.0-18.0); Mean Corpuscular HGB Conc 33.5 g/dl (32-36); Mean Corpuscular Hemoglobin 31.9 pg (26-34); Mean Corpuscular Volume 95.2 fl (80-100); Mean Platelet Volume 10.6 fl (7.4-10.4); Platelet Count Result 295 k/mm3 (150-375); Red Blood Count 5.05 M/mm3 (4.6-6.20); Red Cell Distribution Width 12.5 % (11.5-14.5); White Blood Count 8.7 K/mm3 (4.5-10.0)
[2022-02-20 09:20] LABS: Anion Gap 9 mmol/L (8-16); Blood Urea Nitrogen 15 mg/dL (9-20); Calcium 9.5 mg/dL (8.4-10.2); Carbon Dioxide 30 mmol/L (22-30); Chloride 101 mmol/L (98-107); Estimated Glomerular Filt Rate > 60; Glucose 120 mg/dL (65-110); Potassium 4.4 mmol/L (3.4-5.0); Sodium 140 mmol/L (137-145)
[2022-02-23 11:47] LABS: Testosterone Total 413 ng/dL (250-1100)
== END 2022-02-20 08:43 | disposition home or self-care (01) ==
LOC: ANHLAB 08:44
PROVIDERS: PCP Internal Medicine; Visit Provider Nurse Practitioner Family
DX: E11.9 Type 2 diabetes mellitus without complications (principal); N52.9 Male erectile dysfunction, unspecified; Z79.4 Long term (current) use of insulin
CPT/HCPCS: 36415; 80048; 84403; 85027

== ENCOUNTER 2022-03-21 11:38 | Outpatient (CLI) | payer MEDICARE, SELFPAY ==
[2022-03-21 12:58] LABS: Prostate Specific Antigen 0.4 ng/mL (< OR = 4.0)
== END 2022-03-21 11:39 | disposition home or self-care (01) ==
LOC: ANHLAB 11:40
PROVIDERS: PCP Internal Medicine; Visit Provider Internal Medicine
DX: Z12.5 Encounter for screening for malignant neoplasm of prostate (principal)
CPT/HCPCS: 36415; 84153; G0103

== ENCOUNTER 2022-04-05 08:02 | Emergency (ER) | payer MEDICARE, SELFPAY ==
[2022-04-05 08:17] VITALS: BP 148/81; PULSE 88; RESP 16; TEMP 36.1; O2SAT 100
--- NOTE | 2022-04-05 08:20 | ED.EAR ---
HPI - Ear Problem General Chief complaint: Ear Stated complaint: EARACHE Time Seen by Provider: 04/05/22 08:20 Source: patient and RN notes reviewed Mode of arrival: ambulatory Limitations: no limitations History of Present Illness HPI Narrative: 62-year-old male presents with for several week history of left ear pain. Reports she has been using [id number] taking Tylenol without relief. He denies other upper respiratory symptoms. Denies drainage from the ear. Reports decreased hearing MD Complaint: ear pain Related Data Home Medications Medication Instructions Recorded Confirmed cholecalciferol (vitamin D3) 50 50 mcg PO DAILY 07/02/19 04/05/22 mcg (2,000 unit) tablet elderberry fruit 200 mg capsule 200 mg PO DAILY 03/15/20 04/05/22 Allergies Allergy/AdvReac Type Severity Reaction Status Date / Time meperidine AdvReac Severe SEVERE N/V Verified 04/05/22 08:20 metformin AdvReac Intermediate Nausea and Verified 04/05/22 08:20 Vomiting NSAIDS (Non-Steroidal AdvReac Unknown EAT MY Verified 04/05/22 08:20 Anti-Inflamma INSIDES UP augmentin AdvReac Intermediate Nausea Uncoded 04/05/22 08:20 Review of Systems Review of Systems: CONSTITUTIONAL: Denies malaise, chills, sweats, or fever. EYES: Denies visual changes, redness, or discharge. ENT: Denies rhinorrhea, congestion, sinus pain, and sore throat. Reports left ear pain CARDIOVASCULAR: Denies chest pain, palpitations, or edema. RESPIRATORY: Denies cough. Denies dyspnea. GASTROINTESTINAL: Denies abdominal pain, nausea, vomiting, diarrhea SKIN: Denies rash or itching. MUSCULOSKELETAL: Denies myalgia. NEUROLOGIC: Denies headache. All systems reviewed & are unremarkable except as noted in HPI and below PMFSH Past Medical History Medical History Acute calculous cholecystitis Adenomatous colon polyp Cholelithiasis Chronic back pain Chronic bilateral low back pain with bilateral sciatica Colitis Ileus aphthae they noted on EGD in 01/2020. On mesalamine per Dr. Epperson. Diabetic polyneuropathy associated with type 2 diabetes mellitus Essential (primary) hypertension (02/12/19) History of gastric ulcer History of kidney stones Incisional hernia, without obstruction or gangrene Insulin dependent type 2 diabetes mellitus Hemoglobin A1c was 8.3% on 09/16/2020. 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 History of tonsillectomy and adenoidectomy History of umbilical hernia repair History of vasectomy S/P cholecystectomy 10/2020 Family History Family History Mother Diabetes mellitus Dementia Father Patient's father is in good health Cerebrovascular accident Sibling Patient's brother is in good health Patient's sister is in good health Social History Social History (Updated 03/21/22 @ 11:06 by Sarai Grant MA) Social History: The patient lives in [place] with his . They have 3 children who are healthy. He is on disability. He will occasionally smoke a cigarette if he is drinking alcohol. On average he has 2 alcoholic beverages a week. Smokes marijuana for neuropathy pain. He designates his , Cat, as his surrogate decision maker. Code status: Full code. Smoking packs per day: 0.5 Smoking cigarettes per day: 10.0 Years smoked: 7 Smoking pack-years: 3.50 Smoking status: Current every day smoker Tobacco type: cigarettes Second hand tobacco smoke exposure: Yes Alcohol i
== END 2022-04-05 08:40 | disposition home or self-care (01) ==
PROVIDERS: Emergency Provider Nurse Practitioner; PCP Internal Medicine
DX: H66.92 Otitis media, unspecified, left ear (principal); F17.210 Nicotine dependence, cigarettes, uncomplicated; F12.90 Cannabis use, unspecified, uncomplicated; I10 Essential (primary) hypertension; E78.2 Mixed hyperlipidemia; E11.42 Type 2 diabetes mellitus with diabetic polyneuropathy; Z79.4 Long term (current) use of insulin
CPT/HCPCS: 99213; G0463

== ENCOUNTER 2022-09-22 07:38 | Outpatient (CLI) | payer MEDICARE, SELFPAY ==
[2022-09-22 08:00] LABS: Hematocrit 49.9 % (42.0-52.0); Hemoglobin 16.2 g/dL (14.0-18.0); Mean Corpuscular HGB Conc 32.5 g/dl (32-36); Mean Corpuscular Hemoglobin 31.6 pg (26-34); Mean Corpuscular Volume 97.5 fl (80-100); Mean Platelet Volume 10.6 fl (7.4-10.4); Platelet Count Result 308 k/mm3 (150-375); Red Blood Count 5.12 M/mm3 (4.6-6.20); Red Cell Distribution Width 13.2 % (11.5-14.5)
[2022-09-22 08:03] LABS: Appearance Urine Clear (Clear); Bilirubin Urine Negative (Negative); Blood Urine Negative (Negative); Color Urine Yellow (Yellow); Glucose Urine UA 3+ mg/dL (Negative); Ketones Urine Negative (Negative); Leukocyte Esterase Ur Negative LEU/UL (NEGATIVE); Nitrate Urine Negative (Negative); Protein Urine Negative (Negative); Specific Grav Ur 1.034 (1.001-1.035); Urobilinogen Urine 0.2 mg/dL (<2.0); pH Urine 6.5 (5.0-9.0)
[2022-09-22 08:19] LABS: Alanine Aminotransferase 21 U/L (6-50); Albumin Level 4.3 g/dL (3.5-5.1); Alkaline Phosphatase 41 U/L (38-126); Anion Gap 4 mmol/L (8-16); Aspartate Amino Transferase 28 U/L (17-59); Bilirubin,Total 0.6 mg/dL (0.2-1.3); Blood Urea Nitrogen 19 mg/dL (9-20); Calcium 9.2 mg/dL (8.4-10.2); Carbon Dioxide 33 mmol/L (22-30); Chloride 103 mmol/L (98-107); Cholesterol 149 mg/dL (0-200); Estimated Glomerular Filt Rate > 60; Glucose 117 mg/dL (65-110); HDL Direct 33 mg/dL; Potassium 4.1 mmol/L (3.4-5.0); Sodium 140 mmol/L (137-145); Triglycerides 162 mg/dL (<150)
[2022-09-22 08:20] LABS: Creatinine Urine 150.8 mg/dL
[2022-09-22 08:24] LABS: MALB Creatinine Ratio 5.9 mg/g (0-30); Microalbumin Urine Random 8.9 mg/L (0-16.7)
[2022-09-22 08:25] LABS: Add Urine Microscopic? NO
[2022-09-22 08:27] LABS: Iron 140 ug/dL (49-181)
[2022-09-22 08:30] LABS: LDL Cholesterol Direct 90 mg/dL
[2022-09-22 08:48] LABS: Prostate Specific Antigen 0.3 ng/mL (< OR = 4.0)
== END 2022-09-22 07:39 | disposition home or self-care (01) ==
PROVIDERS: PCP Family Medicine; Visit Provider Family Medicine
DX: E11.65 Type 2 diabetes mellitus with hyperglycemia (principal); N20.0 Calculus of kidney; N52.9 Male erectile dysfunction, unspecified; Z79.4 Long term (current) use of insulin; E78.2 Mixed hyperlipidemia; G89.29 Other chronic pain; I10 Essential (primary) hypertension; M54.9 Dorsalgia, unspecified; R50.9 Fever, unspecified; R53.83 Other fatigue; R56.9 Unspecified convulsions; Z12.5 Encounter for screening for malignant neoplasm of prostate
CPT/HCPCS: 36415; 80053; 80061; 81003; 82043; 83540; 84153; 85027; 87086; G0103

== ENCOUNTER 2023-04-26 07:43 | Outpatient (CLI) | payer MEDICARE, SELFPAY ==
[2023-04-26 08:08] LABS: Hemoglobin 15.7 g/dL (14.0-18.0); Mean Corpuscular Hemoglobin 31.4 pg (26-34); Mean Platelet Volume 10.7 fl (7.4-10.4); Platelet Count Result 318 k/mm3 (150-375); Red Cell Distribution Width 12.9 % (11.5-14.5); White Blood Count 11.8 K/mm3 (4.5-10.0)
[2023-04-26 08:20] LABS: Alanine Aminotransferase 21 U/L (6-50); Albumin Level 4.7 g/dL (3.5-5.1); Alkaline Phosphatase 60 U/L (38-126); Anion Gap 9 mmol/L (8-16); Aspartate Amino Transferase 25 U/L (17-59); Bilirubin,Total 0.6 mg/dL (0.2-1.3); Blood Urea Nitrogen 28 mg/dL (9-20); Calcium 9.5 mg/dL (8.4-10.2); Carbon Dioxide 26 mmol/L (22-30); Chloride 102 mmol/L (98-107); Estimated Glomerular Filt Rate > 60; Glucose 223 mg/dL (65-110); Potassium 4.5 mmol/L (3.4-5.0); Sodium 137 mmol/L (137-145)
[2023-04-26 08:24] LABS: Hemoglobin A1C 8.6 % (<5.7)
[2023-04-26 08:43] LABS: MALB Creatinine Ratio 9.5 mg/g (0-30)
== END 2023-04-26 07:44 | disposition home or self-care (01) ==
LOC: ANHLAB 07:45
PROVIDERS: PCP Family Medicine; Visit Provider Family Medicine
DX: E11.9 Type 2 diabetes mellitus without complications (principal)
CPT/HCPCS: 36415; 80053; 82043; 83036; 85027

== ENCOUNTER 2023-06-09 14:32 | Emergency (ER) | payer MEDICARE, SELFPAY ==
[2023-06-09 14:42] VITALS: BP 129/72; PULSE 74; RESP 16; TEMP 36.5; O2SAT 99
--- NOTE | 2023-06-09 15:09 | ED.GENADULT ---
HPI - General Adult General Chief complaint: Dental/Oral Stated complaint: Mouth and Eye Pain Source: patient Mode of arrival: ambulatory History of Present Illness HPI narrative: 63-year-old male presented for complaint of roof of mouth pain on right side for a few days. Pain is worse when eating, states pain radiates up to the eye. Denies dental pain or injury. Not taking anything for pain. denies bleeding. Daily smoker 1ppd. Related Data Home Medications Medication Instructions Recorded Confirmed cholecalciferol (vitamin D3) 50 50 mcg PO DAILY 07/02/19 06/09/23 mcg (2,000 unit) tablet elderberry fruit 200 mg capsule 200 mg PO DAILY 03/15/20 06/09/23 Allergies Allergy/AdvReac Type Severity Reaction Status Date / Time meperidine AdvReac Severe SEVERE N/V Verified 06/09/23 14:38 metformin AdvReac Intermediate Nausea and Verified 06/09/23 14:38 Vomiting NSAIDS (Non-Steroidal AdvReac Unknown EAT MY Verified 06/09/23 14:38 Anti-Inflamma INSIDES UP augmentin AdvReac Intermediate Nausea Uncoded 06/09/23 14:38 Review of Systems Review of Systems: CONSTITUTIONAL: Denies body aches, fever, chills ENT: Denies rhinorrhea, congestion, sore throat, or otalgia. Reports hard palate pain CARDIOVASCULAR: Denies chest pain, palpitations RESPIRATORY: Denies cough or dyspnea. SKIN: Denies rash, itching, or wounds. MUSCULOSKELETAL: Denies myalgia. NEUROLOGIC: Denies headache, numbness, tingling, or weakness. [facility] Past Medical History Medical History Acute calculous cholecystitis Adenomatous colon polyp Cholelithiasis Chronic back pain Chronic bilateral low back pain with bilateral sciatica Colitis Ileus aphthae they noted on EGD in 01/2020. On mesalamine per Dr. Epperson. Diabetic polyneuropathy associated with type 2 diabetes mellitus Essential (primary) hypertension (02/12/19) History of gastric ulcer History of kidney stones Incisional hernia, without obstruction or gangrene Insulin dependent type 2 diabetes mellitus Hemoglobin A1c was 8.3% on 09/16/2020. care home (current) use of insulin Mixed hyperlipidemia Nephrolithiasis Recurrent right inguinal hernia Seizures Tobacco abuse Type 2 diabetes mellitus with hyperglycemia Surgical History Surgical History History of appendectomy History of bilateral inguinal hernia repair History of cervical spinal surgery History of incisional hernia repair History of lumbar surgery History of repair of rotator cuff Bilateral. History of tonsillectomy and adenoidectomy History of umbilical hernia repair History of vasectomy S/P cholecystectomy 10/2020 Family History Family History Mother Diabetes mellitus Dementia Father Patient's father is in good health Cerebrovascular accident Sibling Patient's brother is in good health Patient's sister is in good health Social History Social History Social History: The patient lives in [place] with his . They have 3 children who are healthy. He is on disability. He will occasionally smoke a cigarette if he is drinking alcohol. On average he has 2 alcoholic beverages a week. Smokes marijuana for neuropathy pain. He designates his , Cat, as his surrogate decision maker. Code status: Full code. Smoking packs per day: 0.5 Smoking cigarettes per day: 10.0 Years smoked: 7 Smoking pack-years: 3.50 Smoking status: Current every day smoker Tobacco type: cigarettes Second hand tobacco smoke exposure: Yes Alcohol intake: current Alcohol use details: ocassionally Substance use: current Substance use type: marijuana Other substance usage details: Has medical marijuana card Do You Feel Safe in your Home?: Yes Lack of Transportation: No Lack of Food: Kylie
== END 2023-06-09 15:25 | disposition home or self-care (01) ==
PROVIDERS: Emergency Provider Nurse Practitioner Family; PCP Family Medicine
DX: K12.1 Other forms of stomatitis (principal); F17.210 Nicotine dependence, cigarettes, uncomplicated; F12.90 Cannabis use, unspecified, uncomplicated; E11.42 Type 2 diabetes mellitus with diabetic polyneuropathy; Z79.4 Long term (current) use of insulin; I10 Essential (primary) hypertension; E78.2 Mixed hyperlipidemia
CPT/HCPCS: 99213; G0463

== ENCOUNTER 2023-10-08 07:58 | Outpatient (CLI) | payer MEDICARE, SELFPAY ==
[2023-10-08 08:44] LABS: Hematocrit 55.2 % (42.0-52.0); Hemoglobin 18.2 g/dL (14.0-18.0); Mean Corpuscular Hemoglobin 32.5 pg (26-34); Mean Corpuscular Volume 98.6 fl (80-100); Mean Platelet Volume 10.7 fl (7.4-10.4); Platelet Count Result 267 k/mm3 (150-375); White Blood Count 8.7 K/mm3 (4.5-10.0)
[2023-10-08 08:48] LABS: Creatinine Urine 96.6 mg/dL
[2023-10-08 08:52] LABS: MALB Creatinine Ratio 35.1 mg/g (0-30); Microalbumin Urine Random 33.9 mg/L (0-16.7)
[2023-10-08 09:20] LABS: Hemoglobin A1C 7.7 % (<5.7)
[2023-10-08 10:06] LABS: Alanine Aminotransferase 39 U/L (6-50); Albumin Level 4.8 g/dL (3.5-5.1); Alkaline Phosphatase 69 U/L (38-126); Anion Gap 7 mmol/L (4-12); Aspartate Amino Transferase 29 U/L (17-59); Bilirubin,Total 0.8 mg/dL (0.2-1.3); Blood Urea Nitrogen 17 mg/dL (9-20); Calcium 9.3 mg/dL (8.4-10.2); Carbon Dioxide 28 mmol/L (22-30); Chloride 104 mmol/L (98-107); Estimated Glomerular Filt Rate > 60; Glucose 173 mg/dL (65-110); Potassium 4.2 mmol/L (3.4-5.0); Sodium 139 mmol/L (137-145)
[2023-10-08 10:41] LABS: Prostate Specific Antigen 0.4 ng/mL (< OR = 4.0)
== END 2023-10-08 07:59 | disposition home or self-care (01) ==
LOC: ANHLAB 08:02
PROVIDERS: PCP Family Medicine; Visit Provider Family Medicine
DX: Z12.5 Encounter for screening for malignant neoplasm of prostate (principal); E11.9 Type 2 diabetes mellitus without complications
CPT/HCPCS: 36415; 80053; 82043; 83036; 84153; 84443; 85027; G0103

== ENCOUNTER 2023-11-22 11:21 | Emergency (ER) | payer MEDICARE, SELFPAY ==
--- NOTE | ~2023-11-22 | US_ITS ---
US scrotum doppler INDICATION: Enlarged right testicle TECHNIQUE: Testicular sonogram utilizing grayscale and color Doppler FINDINGS: The testes are normal in size and appearance. No focal lesions are seen. The right testes measures 4.1 x 2.7 x 3.2 centimeters, and the left testis measures 4.5 x 2.6 x 3.2 cm. There is norm al vascular flow to both testes. The left epididymis contains a 2 mm cyst. There is a large right and small left hydroceles. IMPRESSION: 1. Bilateral hydroceles, right greater than left. 2: Left epididymal cyst measuring 2 mm. Reviewed, dictated and finalized at location B.
--- NOTE | ~2023-11-22 | CT_ITS ---
EXAMINATION: CT abdomen pelvis w con DATE: 11/22/2023 13:31 INDICATION: Right inguinal hernia TECHNIQUE: Computed tomography (CT) of the abdomen and pelvis was performed with 100 mL Omnipaque-350 intravenous contrast. Automated exposure control and iterative reconstruction technique were employe d. The dose-length product was 831.52 mGy-cm. COMPARISON: None FINDINGS: Dependent atelectasis in bilateral lower lobes. And a few small calcified pulmonary nodules along wit h calcified bilateral hilar and mediastinal lymph nodes consistent with old granulomatous disease. He art size is normal. Small amount of atherosclerotic coronary artery calcific location. No pericardial or pleural effusion. Cholecystectomy clips at the gallbladder fossa. Liver, spleen and a couple smal l splenules, pancreas, right adrenal glands and right kidney are normal. 9 mm left renal cyst. 8 mm m acroscopic fat attenuation left adrenal myelolipoma. The appendix is not visualized. No pericecal inf lammatory change to suggest acute appendicitis.. There is mild colonic diverticulosis with a descend ing and sigmoid colon predominance and without adjacent inflammatory change to suggest diverticulitis . No bowel obstruction. The distal descending colon extends across the orifice of a small fat-contain ing left spigelian hernia. There also bilateral fat-containing inguinal hernias, small and indirect o n the left and moderate sized and direct on the right. Postoperative change of prior umbilical hernia mesh repair. Bladder is normal. Mild prostatomegaly measuring 4.0 x 3.4 cm. No free intraperitoneal gas or fluid. No pathologically enlarged abdominal or pelvic lymphadenopathy. Chronic T8 compression fracture. Instrumented L4-S1 anterior and posterior spinal fusion. IMPRESSION: 1. Bilateral fat-containing inguinal hernias, small and indirect on the left and moderate sized and d irect on the right. 2. Small fat-containing left spigelian hernia. Reviewed, dictated and finalized at location A. IMPRESSION: 1. Bilateral fat-containing inguinal hernias, small and indirect on the left an d moderate sized and direct on the right. 2. Small fat-containing left spigelian hernia.
[2023-11-22 11:28] VITALS: BP 151/75; PULSE 88; RESP 16; TEMP 36.1; O2SAT 97
[2023-11-22 11:57] VITALS: BP 153/94; PULSE 86; RESP 18; TEMP 36.6; O2SAT 97
--- NOTE | 2023-11-22 12:13 | ED.GENADULT ---
HPI - General Adult General Chief complaint: Extremity Injury, Lower Stated complaint: pain down right leg Time Seen by Provider: 11/22/23 12:12 Source: patient Mode of arrival: ambulatory Limitations: no limitations History of Present Illness HPI narrative: 63 years old white male complaining of pain at the right thigh medially proximal to the right groin area with discomfort at the right groin area for a while, got worse over the last 2 days. Patient is telling me that his right testicle is swollen and large and painless for the last 4 years after having right hernia repair at that time. Patient also is telling me that he is right inguinal hernia is bulging which is old and chronic for the last 4 years. Patient denies any trauma. History of back surgery and chronic lower back pain. Patient denies focal numbness or tingling or weakness. He denies any fever, chills, nausea, vomiting or recent new physical activity or trauma Related Data Home Medications Medication Instructions Recorded Confirmed cholecalciferol (vitamin D3) 50 50 mcg PO DAILY 07/02/19 09/12/23 mcg (2,000 unit) tablet elderberry fruit 200 mg capsule 200 mg PO DAILY 03/15/20 09/12/23 Allergies Allergy/AdvReac Type Severity Reaction Status Date / Time meperidine AdvReac Severe SEVERE N/V Verified 11/22/23 11:21 metformin AdvReac Intermediate Nausea and Verified 11/22/23 11:21 Vomiting NSAIDS (Non-Steroidal AdvReac Unknown EAT MY Verified 11/22/23 11:21 Anti-Inflamma INSIDES UP augmentin AdvReac Intermediate Nausea Uncoded 11/22/23 11:21 Review of Systems Review of Systems: All systems reviewed & are unremarkable except as noted in HPI and below PMFSH Past Medical History Medical History Acute calculous cholecystitis Adenomatous colon polyp Cholelithiasis Chronic back pain Chronic bilateral low back pain with bilateral sciatica Colitis Ileus aphthae they noted on EGD in 01/2020. On mesalamine per Dr. Epperson. Diabetic polyneuropathy associated with type 2 diabetes mellitus Essential (primary) hypertension (02/12/19) History of gastric ulcer History of kidney stones Incisional hernia, without obstruction or gangrene Insulin dependent type 2 diabetes mellitus Hemoglobin A1c was 8.3% on 09/16/2020. [facility] (current) use of insulin Mixed hyperlipidemia Nephrolithiasis Recurrent right inguinal hernia Seizures Tobacco abuse Type 2 diabetes mellitus with hyperglycemia Surgical History Surgical History History of appendectomy History of bilateral inguinal hernia repair History of cervical spinal surgery History of incisional hernia repair History of lumbar surgery History of repair of rotator cuff Bilateral. History of tonsillectomy and adenoidectomy History of umbilical hernia repair History of vasectomy S/P cholecystectomy 10/2020 Family History Family History Mother Diabetes mellitus Dementia Father Patient's father is in good health Cerebrovascular accident Sibling Patient's brother is in good health Patient's sister is in good health Social History Social History Social History: The patient lives in [place] with his . They have 3 children who are healthy. He is on disability. He will occasionally smoke a cigarette if he is drinking alcohol. On average he has 2 alcoholic beverages a week. Smokes marijuana for neuropathy pain. He designates his , Cat, as his surrogate decision maker. Code status: Full code. Smoking packs per day: 0.5 Smoking cigarettes per day: 10.0 Years smoked: 7 Smoking pack-years: 3.50 Smoking status: Current every day smoker Tobacco type: cigarettes Second hand tobacco smoke exposure: Yes Alcohol intake: current Alcohol use details: ocassionally Substanc
[2023-11-22] MEDS: SODIUM CHLORIDE 0.9% IV 1,000 ML 999 ML IV CONT (12:45)
[2023-11-22] MEDS: ONDANSETRON INJ 4 MG/2 ML VIAL IV PUSH (12:46)
[2023-11-22] MEDS: HYDROmorphone HCL INJ (*CRX) 1 MG/ML SYR 0.5 MG IV PUSH (12:46)
[2023-11-22 12:56] LABS: Basophils Absolute Auto 0.1 K/mm3 (0.0-0.1); Basophils Percent Auto 0.7 % (0.2-1.2); Eosinophils Absolute Auto 0.5 K/mm3 (0-0.3); Eosinophils Percent Auto 4.3 % (0-4.4); Hematocrit 50.9 % (42.0-52.0); Hemoglobin 17.3 g/dL (14.0-18.0); Immature Granulocyte Absolute 0.03 K/mm3 (0.00-0.031); Immature Granulocyte Percent A 0.3 % (0-0.5); Lymphocytes Absolute Auto 2.76 K/mm3 (0.9-3.2); Lymphocytes Percent Auto 23.8 % (18.3-44.2); Mean Corpuscular Hemoglobin 32.6 pg (26-34); Mean Corpuscular Volume 95.9 fl (80-100); Mean Platelet Volume 10.6 fl (7.4-10.4); Monocytes Absolute Auto 0.7 K/mm3 (0.1-0.6); Monocytes Percent Auto 5.9 % (2.6-8.5); Neutrophils Absolute Auto 7.6 K/mm3 (1.3-6.7); Platelet Count Result 243 k/mm3 (150-375); Red Blood Count 5.31 M/mm3 (4.6-6.20); Red Cell Distribution Width 12.8 % (11.5-14.5); White Blood Count 11.6 K/mm3 (4.5-10.0)
[2023-11-22 13:02] LABS: Appearance Urine Clear (Clear); Bilirubin Urine Negative (Negative); Blood Urine Negative (Negative); Color Urine Yellow (Yellow); Glucose Urine UA 3+ mg/dL (Negative); Ketones Urine Negative (Negative); Leukocyte Esterase Ur Negative LEU/UL (Negative); Nitrate Urine Negative (Negative); Protein Urine Negative (Negative); Specific Grav Ur 1.035 (1.001-1.035); Urobilinogen Urine 0.2 mg/dL (<2.0); pH Urine 5.5 (5.0-9.0)
[2023-11-22 13:05] LABS: Alanine Aminotransferase 27 U/L (6-50); Albumin Level 4.9 g/dL (3.5-5.1); Alkaline Phosphatase 78 U/L (38-126); Anion Gap 12 mmol/L (4-12); Aspartate Amino Transferase 22 U/L (17-59); Bilirubin,Total 0.5 mg/dL (0.2-1.3); Blood Urea Nitrogen 21 mg/dL (9-20); Calcium 9.4 mg/dL (8.4-10.2); Carbon Dioxide 24 mmol/L (22-30); Chloride 103 mmol/L (98-107); Estimated CRCL calculation 74 ml/min; Estimated Glomerular Filt Rate > 60; Glucose 110 mg/dL (65-110); Potassium 4.1 mmol/L (3.4-5.0); Sodium 139 mmol/L (137-145)
[2023-11-22 13:19] LABS: Add Urine Microscopic? NO
[2023-11-22 13:37] VITALS: BP 135/77; PULSE 82; RESP 18; O2SAT 95
== END 2023-11-22 14:20 | disposition home or self-care (01) ==
PROVIDERS: Emergency Provider Emergency Medicine; PCP Family Medicine
DX: N43.3 Hydrocele, unspecified (principal); K40.20 Bilateral inguinal hernia, without obstruction or gangrene, not specified as recurrent; I10 Essential (primary) hypertension; E11.42 Type 2 diabetes mellitus with diabetic polyneuropathy; E78.2 Mixed hyperlipidemia; F17.210 Nicotine dependence, cigarettes, uncomplicated; Z87.442 Personal history of urinary calculi; Z86.010 Personal history of colon polyps; Z90.49 Acquired absence of other specified parts of digestive tract; N50.3 Cyst of epididymis; K43.9 Ventral hernia without obstruction or gangrene; Z79.4 Long term (current) use of insulin; Z79.899 Other long term (current) drug therapy
CPT/HCPCS: 36415; 74177; 76870; 80053; 81003; 85025; 93976; 96361; 96374; 96375; 99284; J1170; J2405; J7030; Q9967

== ENCOUNTER 2023-12-24 07:51 | Outpatient (CLI) | payer MEDICARE, SELFPAY ==
--- NOTE | 2023-12-24 08:00 | ECG_ITS ---
Test Date: 2023-12-24 08:16:29 Measurements Intervals [place] Rate: 70 P: 33 HI: 151 QRS: -21 QRSD: 85 T: 10 QT: 381 QTc: 412 Interpretive Statements SINUS RHYTHM BORDERLINE LEFT AXIS DEVIATION [QRS AXIS < -20] AND ABNORMAL ECG Electronically Signed On 12-24-2023 11:01:21 CDT by Williams Waite M.D.
== END 2023-12-24 07:52 | disposition home or self-care (01) ==
LOC: ANHSURGERY 07:58
PROVIDERS: PCP Family Medicine; Visit Provider Surgery
DX: K40.90 Unilateral inguinal hernia, without obstruction or gangrene, not specified as recurrent (principal); E11.65 Type 2 diabetes mellitus with hyperglycemia; R94.31 Abnormal electrocardiogram [ECG] [EKG]
CPT/HCPCS: 36415; 86850; 86900; 86901; 93005

== ENCOUNTER 2023-12-26 01:32 | Day surgery (SDC) | payer MEDICARE, SELFPAY ==
[2023-12-20 14:13] VITALS: BMI 29.2
--- NOTE | 2023-12-20 14:13 | PC.NURSE ---
Report to the Outpatient Waiting Room, entrance under the green pavilion located off [facility], at time _0600_ on date12/26/23_. Planned Procedure Time: _0800_. Time changes happen often and if your time is changed the preop area will call you the afternoon before. - You and your visitor will be asked to self-screen and do not enter if you have any COVID symptoms. - A mask is optional within the hospital at this time. Patients may have clear liquids (water, carbonated beverages, clear teas, apple juice) until 3 hours prior to surgery with a maximum of 20 ounces. - No food from midnight until time of surgery - Infants may have breast milk until 4 hours before surgery, formula 6 hours prior to surgery. - Children will be allowed to drink immediately following surgery. If applicable, please bring a bottle or sippy cup to assist with drinking. Juice, water, soda, and popsicles are readily available. For infants on formula, please bring formula the day of surgery. Pacifiers are allowed. Take the following medications with a SIP of water the morning of surgery: METOPROLOL DO NOT STOP ANY OF YOUR OTHER PRESCRIPTION MEDICATIONS PRIOR TO SURGERY ?EXCEPT THE FOLLOWING Medications to discontinue per physician 12/23/23 Date to take last dose Please no make-up, nail cambodian, hairspray, perfume, deodorant, or body powder the day of surgery. No jewelry (including any body piercings) or valuables the day of surgery, leave them at home. Please take a shower or bath the night before, or the morning of, surgery with HIBICLENS antibacterial soap. Wear comfortable, loose fitting clothing. Children are encouraged to wear pajamas. - Jewelry must be removed prior to entering the operating room. Rings and piercings that are not removed may be cut off. - The hospital will not accept responsibility for valuables. - Please leave all valuables, including medications, at home the day of surgery. If you are going home after surgery, a licensed delivery route driver must drive you home. - NO public transportation without another adult if you receive anesthesia. - We recommend that an adult stay with you for 24 hours following discharge. - We also recommend that you do not drive, make important decision, drink alcoholic beverages, or take any drugs that were not prescribed by your health care provider for at least 24 hours after your discharge time. For Pediatric surgeries, we recommend two adults accompany the child home. Follow any additional instructions given to you from your surgeon. If you or anyone in your household have experienced Covid symptoms in the past week, please notify your surgeon or the nurse liaison at the phone number below for possible testing. Telephone instructions given to __PATIENT_and asked if any additional questions and then verbalized understanding. Patient advised to call surgeon office or pre surgery nurse liaison [phone] if any additional questions.
[2023-12-26] VITALS (8 sets, daily range): BP systolic 104–127; BP diastolic 65–83; PULSE 74–82; RESP 10–16; TEMP 36.2–36.4; O2SAT 96–100
[2023-12-26] MEDS: LACTATED RINGERS 1,000 ML 30 ML IV CONT ×2 (06:30→10:10)
[2023-12-26] MEDS: ACETAMINOPHEN 500 MG TABLET 1000 MG PO (06:30)
[2023-12-26] MEDS: KETOROLAC 15 MG/ML VIAL (*BKC) IV PUSH (06:30)
[2023-12-26 06:53] LABS: Glucose Point of Care 130 mg/dl (65-105)
--- NOTE | 2023-12-26 07:47 | WPDHPUPDATE1 ---
History and Physical Update Update Date/Time: 12/26/23 07:47 History and Physical has been reviewed, including an updated exam of the patient. There are NO changes in the patient's condition. Risks, benefits, and alternatives have been discussed and questions answered. Patient agrees to proceed with procedure.
--- NOTE | 2023-12-26 07:50 | WPDANESEPPF ---
Anes - Initial Pre Proc Eval Procedure: Operation Date: 12/26/23 08:00 Proposed Procedures p Laparoscopic Recurrent Right Inguinal Hernia Repair with Mesh, Left Inguinal Hernia Repair with Mesh, Davinci Assisted - Matheus Li DO Date/Time: 12/26/23 07:50 Surgeon: Matheus Li DO Pre Op Diagnosis: recurrent right and left inguinal hernia Patient Data Age: 63 Gender: M Height: 1.75 m Weight: 90 kg Allergies Allergy/AdvReac Type Severity Reaction Status Date / Time meperidine AdvReac Severe SEVERE N/V Verified 12/20/23 14:00 amoxicillin [From Augmentin] AdvReac Intermediate Nausea Verified 12/26/23 07:52 clavulanic acid AdvReac Intermediate Nausea Verified 12/26/23 07:52 [From Augmentin] metformin AdvReac Intermediate Nausea and Verified 12/20/23 14:00 Vomiting NSAIDS (Non-Steroidal AdvReac Unknown EAT MY Verified 12/20/23 14:00 Anti-Inflamma INSIDES UP Home Medications Medication Instructions Recorded Confirmed Type cholecalciferol (vitamin D3) 50 50 mcg PO DAILY 07/02/19 12/20/23 History mcg (2,000 unit) tablet pen needle, diabetic 32 gauge x #400 ea 04/19/22 12/10/23 Rx 1/4 (BD Ultra-Fine Micro Pen Needle) glucagon 1 mg/0.2 mL subcutaneous 1 mg (0.2 mL) subcut ONCE #0.4 mL 08/22/22 12/20/23 Rx auto-injector (Gvoke HypoPen 2-Pack) fluticasone propionate 50 2 spray intranasal DAILY PRN 11/23/22 12/20/23 Rx mcg/actuation nasal allergy symptoms 14 days #15.8 mL spray,suspension (Flonase Allergy Relief) metoprolol succinate 25 mg See Rx Instructions .Route 04/23/23 12/20/23 Rx tablet,extended release 24 hr .COMPLEX #90 tabs dapagliflozin propanediol 10 mg 10 mg PO QAM #90 tabs 05/29/23 12/20/23 Rx tablet (Farxiga) insulin aspart U-100 100 unit/mL See Rx Instructions subcut TID #60 05/29/23 12/20/23 Rx (3 mL) subcutaneous pen (Novolog mL FlexPen U-100 Insulin aspart) insulin degludec 100 unit/mL (3 34 unit (0.34 mL) subcut QHS #30 mL 06/05/23 12/20/23 Rx mL) subcutaneous pen (Tresiba FlexTouch U-100 insulin) tadalafil 20 mg tablet 20 mg PO DAILY PRN sexual activity 08/28/23 12/20/23 Rx #30 tabs ropinirole 0.5 mg tablet 0.5 mg PO QHS #90 tabs 10/15/23 12/20/23 Rx blood sugar diagnostic (OneTouch #300 strips 10/29/23 12/10/23 Rx Verio test strips) atorvastatin 10 mg tablet See Rx Instructions .Route 11/02/23 12/20/23 Rx .COMPLEX #100 tabs lisinopril 20 mg tablet See Rx Instructions .Route 11/02/23 12/20/23 Rx .COMPLEX #100 tabs fenofibrate 160 mg tablet See Rx Instructions .Route 11/21/23 12/20/23 Rx .COMPLEX #90 tabs hydrocodone 10 mg-acetaminophen 0.5 tablet PO Q8H PRN pain #10 tabs 12/03/23 12/20/23 Rx 325 mg tablet pantoprazole 40 mg tablet,delayed See Rx Instructions .Route 12/24/23 Rx release .COMPLEX #90 tabs Laboratory Tests 12/26/23 06:50 POC Capillary Glucose 130 H mg/dl (65-105) Patient hx anesthesia problems: none Family hx anesthesia problems: none Results Review: All pre-operative results and documents have been reviewed as part of the pre-operative evaluation. [facility] Past Medical History Medical History Acute calculous cholecystitis Adenomatous colon polyp Cholelithiasis Chronic back pain Chronic bilateral low back pain with bilateral sciatica Colitis Ileus aphthae they noted on EGD in 01/2020. On mesalamine per Dr. Epperson. Diabetic polyneuropathy associated with type 2 diabetes mellitus Essential (primary) hypertension (02/12/19) History of gastric ulcer History of kidney stones Incisional hernia, without obstruction or gangrene Insulin dependent type 2 diabetes mellitus Hemoglobin A1c was 8.3% on 09/16/2020. [facility] (current) use of insulin Mixed hyperlipidemia Nephrolithiasis Recurrent right inguinal hernia Seizures Tobacco abuse Type 2 diabetes mellitus with hyperglycemia Surgical His
[2023-12-26] MEDS: ceFAZolin 2 GM/D5W 50 ML 2 GM/50 ML BAG IVPB (08:06)
[2023-12-26] MEDS: BUPIVACAINE/EPINEPHRINE 0.5% 10 ML VIAL 30 ML INFILTRATE (09:33)
[2023-12-26 10:20] LABS: Glucose Point of Care 175 mg/dl (65-105)
--- NOTE | 2023-12-26 10:22 | W.PM.PROC2 ---
Procedure Note - Detailed Date of Procedure 12/26/23 Pre-op Diagnosis 1. Recurrent right inguinal hernia 2. Left inguinal hernia Post-op Diagnosis Same (Recurrent direct right inguinal hernia, indirect left inguinal hernia) Procedure Performed Laparoscopic recurrent right inguinal hernia repair with mesh and left inguinal hernia repair with mesh, da Margo assisted Surgeon Matheus Li, DO Anesthesia General and Local (0.5% bupivacaine with epinephrine) Indications This is a 63-year-old man who presented with right groin and leg pain that had been present for the past couple months. He has a prior history of open right inguinal hernia repair with mesh. A CT of his abdomen and pelvis was performed and this showed evidence of a recurrent right inguinal hernia as well as a left inguinal hernia. Discussions were made with the patient about treatment options and decision was made to proceed with robotic assisted laparoscopic recurrent right inguinal hernia repair with mesh and left inguinal hernia repair with mesh. Findings The patient was found to have a direct recurrent right inguinal hernia as well as a small indirect left inguinal hernia. He had some scarring from his previous anterior approach for lumbar surgery as well as his previous umbilical hernia repair and appendectomy. The scar tissue came down fairly easily, but the preperitoneal plane on the left side was a little more difficult to develop due to the anterior lumbar surgery. Eventually I was able to perform a transabdominal preperitoneal approach on each side and reduce the hernia sac. Once a wide enough preperitoneal pocket was created on each side, I then placed extra-large 3DMax mid mesh overlying each myopectineal orifice. No specimens were obtained for pathology. Description of Procedure Procedure as well as risks, benefits, and alternatives were discussed with the patient. Written consent was obtained and placed in chart prior to procedure. Patient was brought back to surgical suite. He was placed supine on operating table. Time-out was done to confirm patient and procedure. He was then intubated by Anesthesia Department. His abdomen was prepped and draped in sterile fashion using chlorhexidine prep. 0.5% bupivacaine with epinephrine was infiltrated at each location for incision. An 8 mm incision was made in the left lateral abdomen, and a 5 mm Optiview trocar was advanced through the abdominal layers under direct visualization. Once inside the abdominal cavity, carbon dioxide insufflation was used to create a pneumoperitoneum. A camera was inserted and the abdominal cavity was inspected. The patient was placed in slight Trendelenburg position. An 8 millimeter incision was made on the right lateral abdomen and an 8 millimeter trocar was inserted under direct visualization. Another 8 millimeter incision was made just superior to the umbilicus and an 8 millimeter trocar was inserted under direct visualization. The 5 mm port was then removed and this was replaced with another 8 mm robotic port. The robotic arms were brought up to the patient's bedside and secured to the ports. The camera and instruments were inserted. I then moved over to the robotic console and took control of the camera and instruments. After careful inspection of the abdominal cavity, I began scoring the peritoneum along the right lower quadrant using scissors with electrocautery. The preperitoneal plane was entered and this was carefully dissected caudally along the inferior epigastric vessels. Careful dissection with scissors with electrocautery and blunt dissection was used to continue this dissection. I dissected far enough laterally to allow for mesh placement, and also dissected medially to identify the pubic arch and Matt's ligament. The hernia sac was identified and carefully dissected posteriorly. The cord contents were also identified and the peritoneum was carefully dissected far enough posteriorly
[2023-12-26] MEDS: HYDROmorphone HCL INJ (*CRX) 1 MG/ML SYR 0.25 MG IV PUSH ×3 (10:52→11:03)
[2023-12-26] MEDS: HYDROcodone/acetaminophen (*CRX) 7.5-325 MG TABLET 1 TAB PO (11:41)
== END 2023-12-26 12:23 | disposition home or self-care (01) ==
PROVIDERS: PCP Family Medicine; Visit Provider Surgery
PROC: 8E0Y4CZ Robotic Assisted Procedure of Lower Extremity, Percutaneous Endoscopic Approach (ICD-10-PCS; CPT 49650; principal; 2023-12-26 08:00)
DX: K40.90 Unilateral inguinal hernia, without obstruction or gangrene, not specified as recurrent (principal); K40.91 Unilateral inguinal hernia, without obstruction or gangrene, recurrent; I10 Essential (primary) hypertension; E78.2 Mixed hyperlipidemia; E11.42 Type 2 diabetes mellitus with diabetic polyneuropathy; E11.65 Type 2 diabetes mellitus with hyperglycemia; M54.42 Lumbago with sciatica, left side; G89.29 Other chronic pain; M54.41 Lumbago with sciatica, right side; F12.90 Cannabis use, unspecified, uncomplicated; F17.210 Nicotine dependence, cigarettes, uncomplicated; Z79.4 Long term (current) use of insulin; Z79.891 Long term (current) use of opiate analgesic; Z98.890 Other specified postprocedural states; Z98.1 Arthrodesis status; Z90.49 Acquired absence of other specified parts of digestive tract; Z86.010 Personal history of colon polyps; Z87.11 Personal history of peptic ulcer disease; Z87.442 Personal history of urinary calculi; Z82.49 Family history of ischemic heart disease and other diseases of the circulatory system
CPT/HCPCS: 49651; 49650; S2900; 82948; A9270; C1781; J0690; J1100; J1170; J1596; J1885; J2250; J2405; J2704; J3010; J7030; J7120

== ENCOUNTER 2024-02-05 08:03 | Emergency (ER) | payer MEDICARE, SELFPAY ==
--- NOTE | ~2024-02-05 | XR_ITS ---
Cervical Spine: AP, lateral, open-mouth views Clinical History: Pain COMPARISON: 09/18/2017 Findings: There is straightening of the normal cervical lordosis. No fracture. Stable minimal grade 1 anterolisthesis of C5 over C6. Fusion across the C6-C7 disc space is unchanged. Minimal degenerative changes are present otherwise. Pre-vertebral soft tissues are unremarkable. Impression: No change from prior exam. Mild degenerative spondylosis, with minimal grade 1 anterolisthesis of C5 over C6. Fusion across the C6-C7 disc space. Reviewed, dictated and finalized at location . Impression: No change from prior exam. Mild degenerative spondylosis, with minimal grade 1 anterolisthesis of C5 over C6. Fusion across the C6-C7 disc space.
--- NOTE | ~2024-02-05 | XR_ITS ---
Left Shoulder Technique: AP and scapular Y views were obtained. Clinical History: Pain Findings: No fracture or dislocation is seen. Osseous alignment is anatomic. The glenohumeral and acr omioclavicular joint spaces are preserved. Soft tissues are unremarkable. Impression: Unremarkable left shoulder radiographs. Reviewed, dictated and finalized at [facility]. Impression: Unremarkable left shoulder radiographs.
--- NOTE | 2024-02-05 08:04 | ED.FALL ---
HPI - Fall General Stated Complaint: L SHOULDER/L NECK/BACK OF HEAD PAIN Time Seen by Provider: 02/05/24 08:03 Related Data Home Medications Medication Instructions Recorded Confirmed cholecalciferol (vitamin D3) 50 50 mcg PO DAILY 07/02/19 01/16/24 mcg (2,000 unit) tablet Allergies Allergy/AdvReac Type Severity Reaction Status Date / Time meperidine AdvReac Severe SEVERE N/V Verified 01/11/24 10:55 amoxicillin [From Augmentin] AdvReac Intermediate Nausea Verified 01/11/24 10:55 clavulanic acid AdvReac Intermediate Nausea Verified 01/11/24 10:55 [From Augmentin] metformin AdvReac Intermediate Nausea and Verified 01/11/24 10:55 Vomiting NSAIDS (Non-Steroidal AdvReac Unknown EAT MY Verified 01/11/24 10:55 Anti-Inflamma INSIDES UP [facility] Past Medical History Medical History Acute calculous cholecystitis Adenomatous colon polyp Cholelithiasis Chronic back pain Chronic bilateral low back pain with bilateral sciatica Colitis Ileus aphthae they noted on EGD in 01/2020. On mesalamine per Dr. Epperson. Diabetic polyneuropathy associated with type 2 diabetes mellitus Essential (primary) hypertension (02/12/19) History of gastric ulcer History of kidney stones Incisional hernia, without obstruction or gangrene Insulin dependent type 2 diabetes mellitus Hemoglobin A1c was 8.3% on 09/16/2020. 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 History of tonsillectomy and adenoidectomy History of umbilical hernia repair History of vasectomy S/P cholecystectomy 10/2020 Family History Family History Mother Diabetes mellitus Dementia Father Patient's father is in good health Cerebrovascular accident Sibling Patient's brother is in good health Patient's sister is in good health Social History Social History Social History: The patient lives in [place] with his . They have 3 children who are healthy. He is on disability. He will occasionally smoke a cigarette if he is drinking alcohol. On average he has 2 alcoholic beverages a week. Smokes marijuana for neuropathy pain. He designates his , Cat, as his surrogate decision maker. Code status: Full code. Smoking packs per day: 1.0 Smoking cigarettes per day: 20.0 Years smoked: 8 Smoking pack-years: 8.00 Smoking status: Current every day smoker Tobacco type: cigarettes Second hand tobacco smoke exposure: Yes Alcohol intake: current Alcohol use details: 1 PER MONTH Substance use: current Substance use type: other Other substance usage details: THC GUMMIES- BEDTIME Do You Feel Safe in your Home?: Yes Lack of Transportation: No Lack of Food: Never True Current Housing: I Have Housing Concerned About Future Housing: No Difficulty Paying Gas/Electric Bills: Decline to Answer Difficulty Paying for Meds: No Currently Unemployed: No Education: High School Diploma/GED Difficulty w/ Childcare or Family Care: No Living arrangements: with family Discharge Plan Discharge Prescriptions: No Action tadalafil 20 mg tablet 20 mg PO DAILY PRN (Reason: sexual activity) Qty: 30 4RF Rx Instructions: administer approximately 30min
--- NOTE | 2024-02-05 08:14 | ED.EXTPRO ---
HPI - Extremity Problem General Chief complaint: Extremity Injury, Upper Stated complaint: L SHOULDER/L NECK/BACK OF HEAD PAIN Time Seen by Provider: 02/05/24 08:03 Source: patient Mode of arrival: ambulatory Limitations: no limitations History of Present Illness HPI Narrative: Is a 63-year-old male patient presenting to the clinic today with complaints of left posterior neck pain, left shoulder pain, and pain in the back of his head. He reports this has been going on for approximately 1 week. Rates the pain currently an 8/10. States the pain is severe was unable to give me a quality of pain. Pain does radiate down his arm and he has had some numbness and tingling in his hand. Denies any known injury. Related Data Home Medications Medication Instructions Recorded Confirmed cholecalciferol (vitamin D3) 50 50 mcg PO DAILY 07/02/19 01/16/24 mcg (2,000 unit) tablet Allergies Allergy/AdvReac Type Severity Reaction Status Date / Time meperidine AdvReac Severe SEVERE N/V Verified 01/11/24 10:55 amoxicillin [From Augmentin] AdvReac Intermediate Nausea Verified 01/11/24 10:55 clavulanic acid AdvReac Intermediate Nausea Verified 01/11/24 10:55 [From Augmentin] metformin AdvReac Intermediate Nausea and Verified 01/11/24 10:55 Vomiting NSAIDS (Non-Steroidal AdvReac Unknown EAT MY Verified 01/11/24 10:55 Anti-Inflamma INSIDES UP Review of Systems Review of Systems: Pertinent positives per HPI. Patient denies any fever, chills, rash, headache, visual changes, dizziness, cough, runny nose, sore throat, shortness of breath, chest pain, palpitations, nausea, vomiting, diarrhea, constipation, abdominal pain, or any urinary issues. [facility] Past Medical History Medical History Acute calculous cholecystitis Adenomatous colon polyp Cholelithiasis Chronic back pain Chronic bilateral low back pain with bilateral sciatica Colitis Ileus aphthae they noted on EGD in 01/2020. On mesalamine per Dr. Epperson. Diabetic polyneuropathy associated with type 2 diabetes mellitus Essential (primary) hypertension (02/12/19) History of gastric ulcer History of kidney stones Incisional hernia, without obstruction or gangrene Insulin dependent type 2 diabetes mellitus Hemoglobin A1c was 8.3% on 09/16/2020. 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 History of tonsillectomy and adenoidectomy History of umbilical hernia repair History of vasectomy S/P cholecystectomy 10/2020 Family History Family History Mother Diabetes mellitus Dementia Father Patient's father is in good health Cerebrovascular accident Sibling Patient's brother is in good health Patient's sister is in good health Social History Social History Social History: The patient lives in [place] with his . They have 3 children who are healthy. He is on disability. He will occasionally smoke a cigarette if he is drinking alcohol. On average he has 2 alcoholic beverages a week. Smokes marijuana for neuropathy pain. He designates his , Cat, as his surrogate decision maker. Code status: Full code. Smoking packs per day: 1.0 Smoking cigarettes per day: 20.0 Years smoked: 8
[2024-02-05 08:15] VITALS: BP 134/89; PULSE 79; RESP 16; TEMP 36.2; O2SAT 97
== END 2024-02-05 08:54 | disposition home or self-care (01) ==
PROVIDERS: Emergency Provider Nurse Practitioner Family; PCP Family Medicine
DX: M54.2 Cervicalgia (principal); M25.512 Pain in left shoulder; M47.22 Other spondylosis with radiculopathy, cervical region; F17.210 Nicotine dependence, cigarettes, uncomplicated; F12.90 Cannabis use, unspecified, uncomplicated; E11.42 Type 2 diabetes mellitus with diabetic polyneuropathy; I10 Essential (primary) hypertension; E78.2 Mixed hyperlipidemia
CPT/HCPCS: 72040; 73030; 99214; G0463

== ENCOUNTER 2024-04-14 07:33 | Outpatient (CLI) | payer MEDICARE, SELFPAY ==
[2024-04-14 08:01] LABS: Hematocrit 48.4 % (42.0-52.0); Hemoglobin 16.3 g/dL (14.0-18.0); Mean Corpuscular HGB Conc 33.7 g/dl (32-36); Mean Corpuscular Hemoglobin 32.3 pg (26-34); Mean Corpuscular Volume 95.8 fl (80-100); Mean Platelet Volume 10.6 fl (7.4-10.4); Platelet Count Result 267 k/mm3 (150-375); Red Blood Count 5.05 M/mm3 (4.6-6.20); White Blood Count 10.7 K/mm3 (4.5-10.0)
[2024-04-14 08:12] LABS: Alanine Aminotransferase 31 U/L (6-50); Albumin Level 4.2 g/dL (3.5-5.1); Alkaline Phosphatase 82 U/L (38-126); Anion Gap 4 mmol/L (4-12); Aspartate Amino Transferase 31 U/L (17-59); Bilirubin,Total 0.7 mg/dL (0.2-1.3); Blood Urea Nitrogen 22 mg/dL (9-20); Calcium 9.3 mg/dL (8.4-10.2); Carbon Dioxide 31 mmol/L (22-30); Chloride 104 mmol/L (98-107); Cholesterol 150 mg/dL (0-200); Estimated Glomerular Filt Rate > 60; Glucose 113 mg/dL (65-110); HDL Direct 33 mg/dL; Potassium 4.4 mmol/L (3.4-5.0); Sodium 139 mmol/L (137-145); Triglycerides 186 mg/dL (<150)
[2024-04-14 08:23] LABS: LDL Cholesterol Direct 81 mg/dL
[2024-04-14 08:44] LABS: Hemoglobin A1C 8.3 % (<5.7)
[2024-04-14 09:20] LABS: Creatinine Urine 207.6 mg/dL
[2024-04-14 09:21] LABS: MALB Creatinine Ratio 20.7 mg/g (0-30); Microalbumin Urine Random 42.9 mg/L (0-16.7)
== END 2024-04-14 07:34 | disposition home or self-care (01) ==
PROVIDERS: PCP Family Medicine; Visit Provider Family Medicine
DX: E11.65 Type 2 diabetes mellitus with hyperglycemia (principal); E78.2 Mixed hyperlipidemia; I10 Essential (primary) hypertension; G89.29 Other chronic pain; M54.41 Lumbago with sciatica, right side; M54.42 Lumbago with sciatica, left side; R56.9 Unspecified convulsions; Z72.0 Tobacco use
CPT/HCPCS: 36415; 80053; 80061; 82043; 83036; 85027

== ENCOUNTER 2024-07-01 16:16 | Outpatient (CLI) | payer MEDICARE, SELFPAY ==
--- NOTE | ~2024-07-01 | XR_ITS ---
CHEST RADIOGRAPH, PA AND LATERAL CLINICAL HISTORY: J06.9 - Acute upper respiratory infection, unspecified . COMPARISON: None available TECHNIQUE: PA and lateral views of the chest. FINDINGS The cardiomediastinal silhouette is unremarkable. The lungs are clear. Visualized osseous structures and soft tissues are unremarkable. IMPRESSION: No focal infiltrate or effusion. Reviewed, dictated and finalized at location A. 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
== END 2024-07-01 16:17 | disposition home or self-care (01) ==
PROVIDERS: PCP Family Medicine; Visit Provider Family Medicine
DX: J06.9 Acute upper respiratory infection, unspecified (principal)
CPT/HCPCS: 71046

== ENCOUNTER 2024-10-07 07:41 | Outpatient (CLI) | payer MEDICARE, SELFPAY ==
--- OUTSIDE RECORDS SUMMARY | 2024-10-07 07:46 | XMS_ITS | Clinical Summary ---
Author Organization [facility] Address [address] [place] [address] Care Team Providers Care Mail Handlers Supervisor Name Role Phone Jaun Anderson DO Primary Care Provider [phone] Allergies Active Allergy Reactions Criticality Noted Date Comments Meperidine Metformin Medications cholecalcifero l (VITAMIN D-3) 1,000 unit Take 1,000 Units by mouth daily. Active metoprolol (LOPRESSOR) 25 mg tablet Take 1 tablet by oral route every morning and 2 at night 8 8 Active lisinopril (PRINIVIL,ZEST RIL) 20 mg tablet Take 1 tablet by mouth daily. 1 8 Active pen needle, diabetic 31 gauge x 5/16 needle Use to inject insulin 4 times a day 400 each 3 8 Active pramipexole (MIRAPEX) 0.25 mg tablet Take 0.25 mg by mouth daily. 2 8 Active tadalafil (CIALIS) 20 mg tablet 9 Active glucagon (glucagon) 1 mg kitIndications :Type 2 diabetes mellitus with hyperglycemia, with long-term current use of insulin (HCC) Use as directed for low blood sugar. 2 kit 2 9 Active Additional Information Patient not taking.Reported on 05/27/2020 phentermine (ADIPEX-P) 37.5 mg tablet TK 1 T PO BID 0 Active fenofibrate (TRIGLIDE) 160 mg tablet Take 1 tablet (160 mg total) by mouth daily 90 tablet 3 0 Active atorvastatin (LIPITOR) 10 mg tablet Take 1 tablet (10 mg total) by mouth nightly 90 tablet [address] (PROTONIX) 40 mg EC tablet 0 Active HumaLOG KwikPen Insulin 200 unit/mL (3 mL) insulin pen INJECT SUBCUTANEOUSLY UP TO 40 UNITS WITH MEALS PER PRESCRIBERS SLIDING SCALE. MAX OF 120 UNITS PER DAY 18 pen 3 0 Active mesalamine (LIALDA) 1.2 gram EC tablet TAKE 3 TABLETS BY MOUTH EVERY DAY FOR 1 MONTH 0 Active tamsulosin (FLOMAX) 0.4 mg extended release capsule Take by mouth daily 0 Active canagliflozin (INVOKANA) 300 mg tabletIndicati ons:type 2 diabetes mellitus Take 1 tablet (300 mg total) by mouth daily 30 tablet 11 1 Active FreeStyle Long 2 Sensor kitIndications :Type 2 diabetes mellitus with hyperglycemia, with long-term current use of insulin (HCC) Change sensor every 14 days 9 kit 6 1 Active Contour Next Test Strips stripIndicatio ns:Type 2 diabetes mellitus with hyperglycemia, with long-term current use of insulin (HCC) Use to check bg 5 times a day 500 each 1 Active Active Problems Problem Noted Date Diagnosed Date Hyperlipidemia due to type 2 diabetes mellitus 0 10/17/2018 Assessment & Plan (05/27/2020 10:26 AM ASSISTANT STORE MANAGER SALES): Goal of treatment , LDL cholesterol less than 100 ( less than 70 in patients with history of heart attacks and / or strokes ) NonHDL cholesterol ( total cholesterol minus HDL cholesterol ) goal less than 130 ( less than 100 in patients with history of heart attacks and / or strokes ) Low cholesterol, low fat diet was discussed and advised. Daily exercise On statin therapy Lipids checked today Assessment & Plan (02/13/2020 12:09 PM CDT): Continue statin and fibrate Assessment & Plan (11/06/2019 4:30 PM CDT): Restart statin and fenofibrate. Rx sent to pharmacy Assessment & Plan (06/30/2019 10:53 AM ASSISTANT STORE MANAGER SALES): Hypertriglyceridemia continues but improved. Continue statin, fibrate and omega 3 Assessment & Plan (01/23/2019 4:50 PM CDT): At goal on current medications. Continue statin therapy. Assessment & Plan (10/17/2018 10:10 AM CDT): Goal of treatment , LDL cholesterol less than 100 ( less than 70 in patients with history of heart attacks and / or strokes ) NonHDL cholesterol ( total cholesterol minus HDL cholesterol ) goal less than 130 ( less than 100 in patients with history of heart attacks and / or strokes ) Low cholesterol, low fat diet was discussed and advised. Daily exercise Needs to improve DM control to lower TG Very low fat diet. Hypertension associated with diabetes 01/04/2017 Assessment & Plan (05/27/2020 10:26 AM ASSISTANT STORE MANAGER SALES): Goal blood pressure is less than 140/85 Low salt diet was discussed andd recommended The importance of daily aerobic exercise was also emphasized. Continue current meds, including NURY-I or ARB, e.g. Check microalbumin Assessment & Plan (02/13/2020 12:09 PM CDT): Controlled on current medications. Continue plan. Assessment & Plan (11/06/2019 4:29 PM CDT): Controlled on current medications. Continue plan. Assessment & Plan (06/30/2019 10:53 AM ASSISTANT STORE MANAGER SALES): Controlled on current medications. Continue plan. Assessment & Plan (01/23/2019 4:50 PM CDT): Controlled on current medications. Continue plan. Assessment & Plan (06/26/2018 1:22 PM ASSISTANT STORE MANAGER SALES): Controlled on current medications. Assessment & Plan (01/04/2018 1:21 PM CDT): Controlled on current medications. Assessment & Plan (09/20/2017 4:03 PM CDT): Controlled on current medications. Assessment & Plan (01/25/2017 10:41 AM CDT): Goal blood pressure is less than 140/85 Low salt diet recommended Daily aerobic exercise Assessment & Plan (01/04/2017 10:54 AM CDT): Goal blood pressure is less than 140/85 Low salt diet recommended Daily aerobic exercise Continue current meds, including NURY-I or ARB Mixed hyperlipidemia 01/04/2017 Assessment & Plan (06/26/2018 1:22 PM ASSISTANT STORE MANAGER SALES): Hypertriglyceridemia with remote hx pancreatitis. Needs to continue follow up with PCP who is managing this. Continue current medications. Assessment & Plan (01/04/2018 1:21 PM CDT): Check FLP. Assessment & Plan (09/20/2017 4:04 PM CDT): Discussed importance of maintaining glycemic control to improve trigs. Assessment & Plan (01/25/2017 10:41 AM CDT): Goal of treatment , LDL cholesterol less than 100 ( less than 70 in patients with history of heart attacks and / or strokes ) NonHDL cholesterol goal less than 130 ( less than 100 in patients with history of heart attacks and / or strokes ) Continue statin therapy Assessment & Plan (01/04/2017 10:55 AM CDT): Goal of treatment , LDL cholesterol less than 100 ( less than 70 in patients with history of heart attacks and / or strokes ) NonHDL cholesterol goal less than 130 ( less than 100 in patients with history of heart attacks and / or strokes ) Continue statin therapy Uncontrolled type 2 diabetes mellitus with hyperglycemia, with long-term current use of insulin 12/05/2016 Assessment & Plan (04/16/2018 10:36 AM ASSISTANT STORE MANAGER SAL[employer]): Your Hba1c today was: Lab Results Component Value Date HGBA1C 7.7 04/16/2018 meaning a 3 month average sugar of : 170 Your goal hba1c is under 7.0 to prevent termite inspector diabetes complications ( eye , kidney and nerve damage ) . Your goal sugars are in the 90-130 range Daily aerobic ( walking, riding a bike, swimming ) and resistance exercises ( light weight lifting, resistance band stretching ) for at least 30 minutes is recommended If you can not walk, chair exercises for 10-15 min a day would help tremendously. As little as 15-20 minutes exercise , in one or two sessions a day, is still very helpful to improve your diabetes control . Eat small portion meals, trying not to consume no more than 1800 calories a day . Try to eat not more than than 3 servings of carbs ( starches ) wiith your meals. Avoid soft drinks, including regular sodas , fruit juices and sweetened tea. Drink water instead. Eat plenty of green and leafy vegetables, including salads. Take your medications regularly. Setting phone alarms can help . Keep your medication on the kitchen dinner table, by the bedside table or by the sink where they are visible to you. The insulin that you are currently using does not need to be refrigerated. Keep it where you can see it . Monitor your sugar levels with finger sticks regularly and keep a log sheet or book. Bring your sugar meter and /or a log book or log sheet to every office visit. Lower Toujeo, 50 units at bedtime Take Humalog, 10 units with meals ( even if sugars is under 120 ) For sugars over 150 , take 15 units For sugars over 200, take 20 units For sugars over 250, take 25 unit For sugars over 300, take 35 units For sugars over 350, take 40 units Fax log sheets weekly Start Invokana , 100 mg daily Assessment & Plan (01/04/2018 1:21 PM CDT): A1c 7.8. Lows may result from increased activity. Check hs BG and advised small hs snack if < 130. Focus on diet, portions and Reducing grab and go food Assessment & Plan (01/25/2017 10:58 AM CDT): Hba1c was 8.8 today, indicating Inadequate DM control 1800 calorie, consistent carb diet recommended 30 min daily exercise, combining both aerobic and resistance exercise is strongly recommended and needed as part of diabetes management plan. The need to monitor blood glucose before meals and bedtime was discussed. Take prandial insulin before meals based on carb intake and blood glucose readings. Prevention and treatment of hyypoglcyemia discussed. Increase Tresiba to 50 u Start Farxiga, 5 mg daily Assessment & Plan (01/04/2017 11:16 AM CDT): Hba1c was 8.9 today, indicating adequate DM control 1800 calorie, consistent carb diet recommended 30 min daily aerobic and resistance exercise recommended Foot care discused. Prevention and treatment of hyypoglcyemia discussed. Check sugars before meals and bedtime Stop glimeperide Take Tresiba, 45 units once a day. Start Humalog, before meals as follows: Sugars Units of Humalog Less than 100 8 101-150 12 151-200 16 201-250 20 251-300 24 Over 301 28 Fax log sheets weekly Assessment & Plan (12/05/2016 10:36 AM CDT): Hba1c was 9.3 today, indicating adequate DM control 1800 calorie, consistent carb diet recommended 30 min daily aerobic and resistance exercise recommended Foot care discused. Prevention and treatment of hyypoglcyemia discussed. Check sugars before meals and bedtime Stop glimeperide Take Tresiba, 40 units once a day. Start Humalog, before meals as follows: Sugars Units of Humalog Less than 100 3 ( none if not eating ) 101-150 4 ( 2 151-200 6 201-250 10 251-300 12 Over 301 14 Take half the above dose if you are not eating . Fax logs weekly Type 2 diabetes mellitus wit h hyperglycemia, with long-term current use of insulin 12/05/2016 Assessment & Plan (05/27/2020 10:23 AM ASSISTANT STORE MANAGER SALES): Hba1c was Lab Results Component Value Date HGBA1C 8.1 05/27/2020 today, indicating 184 DM control Goal blood sugars in the 120-150 range , with Hb1c under 7.0 % was explained 1800 calorie, consistent carb diet recommended. No more than 30-45 grams of carbs per meal recommended, as well as avoiding high concentrated sweet drinks . 25-45 min daily exercise, combining both aerobic and resistance exercise recommended. The need to monitor blood glucose before meals and bedtime was discussed. Prevention and treatment of hyypoglcyemia discussed. For sugars under 120, if eating, take 10 units of Humalog Continue with current sliding scale Start Invokana Will start paperwork for insulin pump and CGMS. Assessment & Plan (02/13/2020 12:05 PM CDT): A1c 8.2. BG variability likely due in part to pain and gastroparesis. However he adjusts insulin doses on his own and it is difficulty to determine exactly what he is doing. He will not take basal insulin. States cannot afford other medications. Hx of pancreatitis. Provided today with sample Long 2. He is to wear this for 2 weeks and come back in for download and evaluation of patterns, especially nocturnal. Consider SGLT2 if affordable. Assessment & Plan (11/06/2019 4:32 PM CDT): A1c worsening to 8.8. Start Lantus 5 units hs, keeping in mind fear of hypoglycemia. Provided with instructions to increase to goal of low 100's. Use CF 1:50>150. Send in BG weekly for one month. Advised to contact PCP re: new onset flank pain, wound on finger. Assessment & Plan (06/30/2019 11:04 AM ASSISTANT STORE MANAGER SALES): A1c increased to 7.7. However reports FBG are mostly acceptable. Main issue is related to food choices and not taking Humalog accurately. Advised as follows: 1) If FBG increase > 150 will need to restart basal insulin 2) Avoid FF, appropriate diet options reviewed. 3) Use CF exactly as prescribed 2:50>150 4) Send in BG log in 2 weeks to determine if he needs a prandial dose of Humalog. Consider SGLT2 as cannot use GLP1 d/t hx of pancreatitis and elevated trigs. Assessment & Plan (01/23/2019 4:49 PM CDT): No log to make appropriate evaluation of actual BG pattern. He does not want CGM. Having hyperglycemia > 4 hours after taking Humalog. He is fearful of hypoglycemia. Needs basal insulin but will start gradually and adjust weekly. Toujeo 10 units, Humalog 5 units ac. Advised that if working, do not take 5 units prandial dose at meal before. Use CF med dose alg. Send in BG weekly so that appropriate plan can be formulated. Reviewed use of glucagon and will send to pharm. Check BG hs and if < 140 have snack. Will continue to recommend CGM. Assessment & Plan (10/17/2018 10:09 AM CDT): Your Hba1c today was: Lab Results Component Value Date HGBA1C 8.3 10/17/2018 meaning a 3 month average sugar of : 190 Your goal hba1c is under 7.0 to prevent chcf diabetes complications ( eye , kidney and nerve damage ) . Your goal sugars are in the 90-130 range Exercise recommendations: It is recommended that you do daily aerobic ( walking, riding a bike, swimming ) and resistance exercises ( light weight lifting, resistance band stretching ) for at least 30 minutes , most days of the week. If you can not walk, chair exercises for 10-15 min a day would help tremendously. As little as 15-20 minutes exercise , in one or two sessions a day, is still very helpful to improve your diabetes control . Diet recommendations: Eat small portion meals, trying not to consume more than 1800 calories a day . Try to eat not more than than 2 servings of carbs ( starches ) wiith your meals. Avoid soft drinks, including regular sodas , fruit juices and sweetened tea. Drink water instead. Eat plenty of green and leafy vegetables, including salads. Medications: Take your medications regularly. Setting phone alarms can help . Keep your medication on the kitchen dinner table, by the bedside table or by the sink where they are visible to you. If you are taking insulin : the insulin that you are currently using does not need to be refrigerated. Keep it where you can see it . Monitor your sugar levels with finger sticks regularly and keep a log sheet or book. Bring your sugar meter and /or a log book or log sheet to every office visit. Lower Toujeo to 50 units once a day Stay on Humalog, sliding scale Patient not interested in an insulin pump or CGMS Assessment & Plan (06/26/2018 1:24 PM ASSISTANT STORE MANAGER SALES): Will not change medication at th is time. Variability in log may be due to gastroparesis. Recommend follow up with GI to discuss recent abd pain and testing for gastroparesis. Assessment & Plan (09/20/2017 4:02 PM CDT): A1c 8.5. Inconstancy with using Humalog is contributing to elevated BG during the day. Revise Humalog plan as follows: 10 units prandial dose. CF: 150-200 take 4 units 201-250 take 6 units 251-300 take 8 units 301-350 take 10 units Above 350 take 12 units Advised to send in BG weekly and will adjust accordingly. BG goals reviewed. Foot care discussed. May benefit from CGM to provide confidence in bolusing appropriately and food decisions. Assessment & Plan (12/05/2016 10:37 AM CDT): Foot care discussed On Lyrica Increase to 100 mg three times a day Surgical History Surgery Date Site/Laterality Comments OTHER SURGICAL HISTORY back and neck surgery , herniated disks Medical History Medical History Date Comments Hx Other Medical chronic back pa in Hypertension Hypertension Pancreatitis Family History Medical History Relation Name Comments Diabetes type II Mother Diabetes me llitus type 2; Relation Name Status Comments Mother Social History Tobacco Use Types Packs/Day Years Used Date Smoking Tobacco: Never Smokeless Tobacco: Never Alcohol Use Standard Drinks/Week Comments No 0 (1 standard drink = 0.6 oz pur e alcohol) PHQ-2 Answer Date Recorded PHQ-2 Total Score (If total score is 3 or more points, staff should administer the PHQ-9) 0 05/27/2020 Sex and Gender Information Value Date Recorded Sex Assigned at Not on file Legal Sex Male 8:44 PM ASSISTANT STORE MANAGER SAL[employer] Gender Identity Not on file Sexual Orientation Not on file Obstetrics History Last Filed Vital Signs Vital Sign Reading Time Taken Comments Blood Pressure 121/81 12/01/2021 2:46 PM CDT Pulse 77 12/01/2021 2:46 PM CDT Temperature 36.2 C (97.1 F) 11/06/2019 8:32 AM CDT Respiratory Rate 12 05/27/2020 9:34 AM ASSISTANT STORE MANAGER SALES Oxygen Saturation - - Inhaled Oxygen Concentration - - Weight 94.6 kg (208 lb 9.6 oz) 05/27/2020 9:34 A M ASSISTANT STORE MANAGER SAL[employer] Height 175.3 cm (5' 9.02) 05/27/2020 9:34 AM CS T Body Mass Index 30.79 05/27/2020 9:34 AM ASSISTANT STORE MANAGER SAL[employer] Plan of Treatment Health Maintenance Due Date Last Done Comments Colon Cancer Screening-Colonoscopy 1960 Hepatitis C Screening 1960 Prostate Cancer Screening-PSA 1960 eGFR 1960 DTaP/Tdap/Td Vaccine (1 - Tdap) 1971 Hepatitis B Screening 1978 Regular Well Visit/Exam 18-64 1978 Pneumococcal vaccine <65 (2 of 2 - PCV) 03/15/2008 03/15/2007 Zoster Vaccine (1 of 2) 2010 Dilated Eye Exam 04/18/2019 04/18/2018, , 02/08/2018, Additional history exists Albumin Creatinine Ratio, Urine 04/14/2020 9 Hemoglobin A1C 11/24/2020 05/27/2020, 100 12/2019, 11/06/2019, Additional history exists Depression Screening 05/27/2021 05/27/2020, 02/12/2020, 10/17/2018, Additional history exists Foot Exam 05/27/2021 05/27/2020, 12/2019, 11/06/2019, Additional history exists Lipid Panel 05/27/2021 05/27/2020, 1201/2019, 01/04/2018, Additional history exists Influenza Vaccine (Season Ended) 2025 Procedures Procedure Name Priority Date/Time Associated Diagnosis Comments POCT HEMOGLOBIN A1C Routine 05/27/2020 9 :48 AM ASSISTANT STORE MANAGER SALES Type 2 diabetes mellitus with hyperglycemia, with long-term current use of insulin (HCC) POCT LIPID PANEL Routine 05/27/2020 9:48 AM ASSISTANT STORE MANAGER SALES Type 2 diabetes mellitus with hyperglycemia, with long-term current use of insulin (HCC) ALBUMIN CREATININE RATIO, URINE Routine 04/14/2019 10:22 AM ASSISTANT STORE MANAGER SALES Type 2 diabetes mellitus with hyperglycemia, with long-term current use of insulin (HCC) DIABETIC EYE EXAM Routine 04/18/2018 from Last 3 Months or Most Recently Relevant to Health Maintenance Results * POCT hemoglobin A1c (05/27/2020 9:48 AM ASSISTANT STORE MANAGER SALES) Hemoglobin A1C, POC 8.1 Blood specimen (specimen) 05/27/2020 9:48 AM ASSISTANT STORE MANAGER SALES Result [facility] Tres Maya MD POINT OF CARE TEST ORDERABLES Fi nal Result * POCT lipid panel (05/27/2020 9:48 AM ASSISTANT STORE MANAGER SALES) Cholesterol, POC 141 mg/dL HDL, POC 29 mg/dL Triglycerides, POC 185 mg/dL LDL Cholesterol POC 75 mg/dL Chol/HDL Ratio, POC 4.9 Non-HDL Cholesterol, POC 112 mg/dL Cholesterol Total, POC 141 mg/dL Capillary blood 05/27/2020 9 :48 AM ASSISTANT STORE MANAGER SALES Tres Maya MD POINT OF CARE TEST ORDERABLES Fi nal Result * Albumin Creatinine Ratio, Urine (04/14/2019 10:22 AM ASSISTANT STORE MANAGER SALES) SCRIBED Creatinine, Urine 97.4 n/a - n/a EXTERNAL LAB SCRIBED Microalbumin 7.1 0 - 16.7 EXTERNAL LAB SCRIBED Microalb/Creat Ratio 7.3 0 - 30 EXTERNAL LAB Urine 04/14/2019 10:2 2 AM ASSISTANT STORE MANAGER SALES [facility] [employer] LAB URINE ORDERABLES Final R esult EXTERNAL LAB * Diabetic Eye Exam (04/18/2018) Historical Provider HEALTH MAINTENANCE Edited Result - Final from Last 3 Months or Most Recently Relevant to Health Maintenance Insurance [facility] HMO/PPO Address: [address] [address] [place] [address] MEDICARE AETNA MEDICARE GOLD AETNA MEDICARE GOLD Care Teams Mail Handlers Supervisor Relationship Specialty Start Date End Date Jaun Anderson DO PCP - General Internal Medicine 09/20/17
--- OUTSIDE RECORDS SUMMARY | 2024-10-07 07:46 | XMS_ITS | Clinical Summary ---
Author Organization [facility] Address [address] [place] [address] Care Team Providers Care Mold Dresser Name Role Phone Unavailable Primary Care Provider Unavailabl e Source Comments [facility],non-owned Affiliates and Associated Physician Practices is amultiple site organization consisting of ambulatory clinics and hospital sitesin [place], [place], [place] and [place]. This disclosure is being madepursuant to the Care Everywhere program and may not contain all information available regarding this patient. Last updated 18.[facility] Lindsey Shell Allergies Active Allergy Reactions Criticality Noted Date Comments Meperidine Nausea and/or Vomiting 05/27/2015 Metformin Nausea and/or Vomiting 07/08/2015 Severe vomiting,shakey and chills Nsaids Other 07/08/2015 Pain/ulcer developed Medications * Be aware that medications may not be up to date on this document. Alwaysverify current medications with the patient. glimepiride (AMARYL) 2 MG tabletIndicati ons:Type 2 Diabetes Mellitus Take 1 mg by mouth daily with breakfast Reasons: Type 2 Diabetes 6 Active atorvastatin (LIPITOR) 20 MG tablet Take 20 mg by mouth once daily 6 Active vitamin D, ergocalciferol , (DRISDOL) 03823 UNITS capsule Take 50,000 Units by mouth every 7 days 6 Active gabapentin (NEURONTIN) 400 MG capsule Take 400 mg by mouth 3 times daily Active exenatide ER (BYDUREON) 2 MG injectionIndic ations:Type 2 Diabetes Mellitus Inject 2 mg subcutaneously every 7 days Reasons: Type 2 Diabetes 6 Active [place]-3 Fatty Acids (FISH OIL) 1200 MG Take 2 Tabs by mouth once daily Active [place] 450 MG Take 1 Cap by mouth once daily Active Multiple Vitamin Take 1 Tab by mouth once daily Active ascorbic acid (VITAMIN C) 500 MG tablet Take 500 mg by mouth once daily Active oxyCODONE, immediate release, (OXY-IR) 15 MG tablet Take 1 Tab by mouth every 4 hours as needed 45 Tab 0 6 Active metoprolol tartrate (LOPRESSOR) 25 MG tablet Take 1 Tab by mouth 2 times daily 60 Tab 0 6 Active docusate sodium (COLACE) 100 MG capsule Take 1 Cap by mouth 2 times daily 60 Cap 0 6 Active Active Problems Problem Noted Date Diagnosed Date Paroxysmal atrial tachycardia 07/12/2015 Abdominal pain 07/11/2015 Degeneration, intervertebral disc, lumbar 2015 Status post lumbar spinal fusion 07/09/2015 Essential hypertension 07/09/2015 Mixed hyperlipidemia 07/09/2015 Type 2 diabetes mellitus with hyperglycemia 08/2015 Family History Medical History Relation Name Comments Cancer - Skin, Melanoma Father Hypertension Father Stroke Father Diabetes Mother Relation Name Status Comments Father Alive Mother Alive Social History Tobacco Use Types Packs/Day Years Used Date Smoking Tobacco: Never Smokeless Tobacco: Never Alcohol Use Standard Drinks/Week Comments Yes 0 (1 standard drink = 0.6 oz pur e alcohol) occ Sex and Gender Information Value Date Recorded Sex Assigned at Not on file Legal Sex Male 10:10 AM PER DIEM CLERK Gender Identity Not on file Sexual Orientation Not on file Last Filed Vital Signs Vital Sign Reading Time Taken Comments Blood Pressure 125/74 07/14/2015 12:23 PM PER DIEM CLERK Pulse 104 07/14/2015 12:23 PM PER DIEM CLERK Temperature 37.2 C (98.9 F) 07/14/2015 12:23 PM PER DIEM CLERK Respiratory Rate 16 07/14/2015 12:23 PM PER DIEM CLERK Oxygen Saturation 95% 07/14/2015 12:24 PM PER DIEM CLERK Inhaled Oxygen Concentration - - Weight 93.4 kg (206 lb) 07/08/2015 8:54 AM PER DIEM CLERK Height 171.5 cm (5' 7.5) 07/08/2015 8:54 AM PER DIEM CLERK Body Mass Index 31.79 07/08/2015 8:54 AM PER DIEM CLERK Plan of Treatment Health Maintenance Due Date Last Done Comments COLOGUARD (AGES 45-75) - COL ON CA SCREENING 1960 COLON MONITORING 1960 COLONOSCOPY - COLON CA SCREENING 1960 CT COLONOGRAPHY - COLON CA SCREENING 1960 Colorectal Cancer Screening 1960 FIT - COLON CA SCREENING 1960 FLEX SIG - COLON CA SCREENING 1960 HIV SCREENING 1975 HEPATITIS C SCREENING 03/29/1978 DTAP/TDAP/TD VACCINES (1 - Tdap) 1979 PNEUMOCOCCAL VACCINE 50+ (1 of 1 - PCV) 2010 ZOSTER VACCINE (1 of 2) 2010 COVID-19 VACCINE (1 - 2023-2 5 season) 2024 DEPRESSION SCREENING 05/07/2024 INFLUENZA VACCINE (Season Ended) 2025 Respiratory Syncytial Virus (RSV) Vaccine Pt: or over 60 yrs (1 - 1-dose 75+ series) 2035 HEPATITIS B VACCINE Aged Out No longe r eligible based on patient's age to complete this topic HIB VACCINE Aged Out No longer eligi ble based on patient's age to complete this topic HPV VACCINE Aged Out No longer eligi ble based on patient's age to complete this topic MENINGOCOCCAL (Group B) VACC INE SHARED DECISION-MAKING Aged Out No longer eligibl e based on patient's age to complete this topic MENINGOCOCCAL GROUPS A/C/Y/W VACCINE Aged Out No longer eligible b ased on patient's age to complete this topic Medical Devices Implanted Type Area Pull Through Hooker Device Identifier Shelf Expiration Date Model / Serial / Lot 10ml Floseal Implanted:Qty: 1 on 07/08/2015 by Catrachito Pate MD at [facility] Spine Lumbar [employer] 11/03/2016 [id number] / / [id number] Putty Oziel-3 Dbm 5cc Implanted:Qty: 1 on 07/08/2015 by Catrachito Pate MD at [facility] Spine Lumbar [employer] 12/06/2015 02-5000-05 0 / / [id number] [facility] - [id number] Implanted:Qty: 1 on 07/08/2015 by Catrachito Pate MD at [facility] Spine Lumbar [employer] 06/22/2016 [id number] / [id number] / 30mm 8degree 10mm Interbody Spacer Implanted:Qty: 1 on 07/08/2015 by Catrachito Pate MD at [facility] Spine Lumbar [employer] 03/28/2018 34-A30-10- 8 / / [id number] 30mm X 16mmx 8degree Interbody Spacer Implanted:Qty: 1 on 07/08/2015 by Catrachito Pate MD at [facility] Lumbar [employer] 07/05/2016 34-A30-16- 8 / / [id number] [facility] - [id number] Implanted:Qty: 1 on 07/08/2015 by Catrachtio Pate MD at [facility] Lumbar [employer] 06/24/2016 [id number] / [id number] / Putty Oziel-3 Dbm 5cc Implanted:Qty: 1 on 07/08/2015 by Catrachito Pate MD at [facility] Spine Lumbar [employer] 01/06/2016 0 / / [id number] Scrw St Lumbar Implanted:Qty: 6 on 07/08/2015 by Catrachito Pate MD at [facility] Lumbar [employer] W / / Description:from sterile albin maribel instrument tray. posterior Scrw Perc Mis Implanted:Qty: 4 on 07/08/2015 by Catrachito Pate MD at [facility] Spine Lumbar [employer] PA-65-4 5 / / -65-4 5 Description:from sterile albin maribel instrument tray. posterior Scrw Perc Mis Implanted:Qty: 1 on 07/08/2015 by Catrachito Pate MD at [facility] Spine Lumbar [employer] PA-75-5 0 / / -75-5 0 Description:from sterile albin maribel instrument tray. posterior David Dynamic Or Mis Implanted:Qty: 2 on 07/08/2015 by Catrachito Pate MD at [facility] Lumbar [employer] -55-WA-6 5 / -WA-6 5 Description:from sterile albin maribel instrument tray Explanted Type Area Pull Through Hooker Device Identifier Shelf Expiration Date Model / Serial / Lot Scrw Perc Mis Explanted:Qty: 1 on 07/08/2015 at [facility] Lumbar [employer] -PA-75-4 5 / / PA-75-4 5 Description:from sterile albin maribel instrument tray. posterior Guidewires Explanted:Qty: 4 on 07/08/2015 at [facility] Lumbar [employer] [id number]-400 / / Description:from sterile albin maribel instrument tray. Insurance [facility] Address: [address] [place] [address] MEDICARE [facility] Address: [address] [address] [place] [address] MEDICARE Advance Directives * Full Code (Latest Code Status on File) Date Activated Date Inactivated Comments 07/08/2015 8:22 PM 07/14/2015 2:06 PM
--- OUTSIDE RECORDS SUMMARY | 2024-10-07 07:46 | XMS_ITS | Patient Health Record ---
Author Organization [facility] Address [address] [place] [address] Support Name Relationship Address Phone Twin Roldan Guarantor Unknown [phone] Reason For Referral No Information Plan Of Treatment No Information Insurance Providers Payer Name Payer Address Payer Phone Subscriber Number Group Number Insured Name Patient Relationship to Insured Coverage Start Date Coverage End Date Medicare of [place] [address] [address] [place] [address] [id number] Twin Roldan Self - patient is the insured 4
--- OUTSIDE RECORDS SUMMARY | 2024-10-07 07:46 | XMS_ITS | Referral Summary ---
Author Organization [facility] Address [address] [place] [address] Care Team Providers Care Apricot Washer Name Role Phone Jaun Anderson DO Primary Care Provider [phone] Allergies Active Allergy Reactions Criticality Noted Date [...] 10/17/2018 Assessment & Plan (05/27/2020 10:26 AM FORENSIC DNA ANALYST): Goal of treatment , LDL cholesterol less [...] pharmacy Assessment & Plan (06/30/2019 10:53 AM FORENSIC DNA ANALYST): Hypertriglyceridemia continues but improved. Continue statin, fibrate [...] 01/04/2017 Assessment & Plan (05/27/2020 10:26 AM FORENSIC DNA ANALYST): Goal blood pressure is less than 140/85 [...] plan. Assessment & Plan (06/30/2019 10:53 AM FORENSIC DNA ANALYST): Controlled on current medications. Continue plan. Assessment & Plan (01/23/2019 4:50 PM CDT): Controlled on current medications. Continue plan. Assessment & Plan (06/26/2018 1:22 PM FORENSIC DNA ANALYST): Controlled on current medications. Assessment & Plan [...] 01/04/2017 Assessment & Plan (06/26/2018 1:22 PM FORENSIC DNA ANALYST): Hypertriglyceridemia with remote hx pancreatitis. Needs to [...] 12/05/2016 Assessment & Plan (04/16/2018 10:36 AM FORENSIC DNA ANALYST): Your Hba1c today was: Lab Results Component Value Date HGBA1C 7.7 04/16/2018 meaning a 3 month average sugar of : 170 Your goal hba1c is under 7.0 to prevent supervisor intermediates diabetes complications ( eye , kidney and [...] 12/05/2016 Assessment & Plan (05/27/2020 10:23 AM FORENSIC DNA ANALYST): Hba1c was Lab Results Component Value Date [...] finger. Assessment & Plan (06/30/2019 11:04 AM FORENSIC DNA ANALYST): A1c increased to 7.7. However reports FBG [...] goal hba1c is under 7.0 to prevent [facility] diabetes complications ( eye , kidney and [...] CGMS Assessment & Plan (06/26/2018 1:24 PM FORENSIC DNA ANALYST): Will not change medication at th is [...] to 100 mg three times a day Social History Tobacco Use Types Packs/Day Years [...] on file Legal Sex Male 8:44 PM FORENSIC DNA ANALYST Gender Identity Not on file Sexual Orientation Not on file Last Filed Vital Signs Vital Sign Reading Time Taken Comments Blood Pressure 121/81 12/01/2021 2:46 PM CDT Pulse 77 12/01/2021 2:46 PM CDT Temperature 36.2 C (97.1 F) 11/06/2019 8:32 AM CDT Respiratory Rate 12 05/27/2020 9:34 AM FORENSIC DNA ANALYST Oxygen Saturation - - Inhaled Oxygen Concentration - - Weight 94.6 kg (208 lb 9.6 oz) 05/27/2020 9:34 A M FORENSIC DNA ANALYST Height 175.3 cm (5' 9.02) 05/27/2020 9:34 AM CS T Body Mass Index 30.79 05/27/2020 9:34 AM FORENSIC DNA ANALYST Plan of Treatment Not on file Procedures Procedure Name Priority Date/Time Associated Diagnosis Comments POCT HEMOGLOBIN A1C Routine 05/27/2020 9 :48 AM FORENSIC DNA ANALYST Type 2 diabetes mellitus with hyperglycemia, with long-term current use of insulin (HCC) POCT LIPID PANEL Routine 05/27/2020 9:48 AM FORENSIC DNA ANALYST Type 2 diabetes mellitus with hyperglycemia, with long-term current use of insulin (HCC) ALBUMIN CREATININE RATIO, URINE Routine 04/14/2019 10:22 AM FORENSIC DNA ANALYST Type 2 diabetes mellitus with hyperglycemia, with long-term current use of insulin (HCC) DIABETIC EYE EXAM Routine 04/18/2018 from Last 3 Months or Most Recently Relevant to Health Maintenance Results * POCT hemoglobin A1c (05/27/2020 9:48 AM FORENSIC DNA ANALYST) Hemoglobin A1C, POC 8.1 Blood specimen (specimen) 05/27/2020 9:48 AM FORENSIC DNA ANALYST Result [facility] Tres Maya MD POINT OF CARE TEST ORDERABLES Fi nal Result * POCT lipid panel (05/27/2020 9:48 AM FORENSIC DNA ANALYST) Cholesterol, POC 141 mg/dL HDL, POC 29 mg/dL Triglycerides, POC 185 mg/dL LDL Cholesterol POC 75 mg/dL Chol/HDL Ratio, POC 4.9 Non-HDL Cholesterol, POC 112 mg/dL Cholesterol Total, POC 141 mg/dL Capillary blood 05/27/2020 9 :48 AM FORENSIC DNA ANALYST us Tres Maya MD POINT OF CARE TEST ORDERABLES Fi nal Result * Albumin Creatinine Ratio, Urine (04/14/2019 10:22 AM FORENSIC DNA ANALYST) SCRIBED Creatinine, Urine 97.4 n/a - n/a EXTERNAL LAB SCRIBED Microalbumin 7.1 0 - 16.7 EXTERNAL LAB SCRIBED Microalb/Creat Ratio 7.3 0 - 30 EXTERNAL LAB Urine 04/14/2019 10:2 2 AM FORENSIC DNA ANALYST Herberth Jackson NP LAB URINE ORDERABLES Final R esult EXTERNAL LAB * Diabetic Eye Exam (04/18/2018) us Historical Provider HEALTH MAINTENANCE Edited Result - Final from Last 3 Months or Most Recently Relevant to Health Maintenance Insurance [facility] [place] [address] [place] [address] AETNA MEDICARE GOLD AETNA MEDICARE GOLD Care Teams Apricot Washer Relationship Specialty Start Date End Date Jaun Anderson DO PCP - General Internal Medicine 09/20/17
[2024-10-07 08:18] LABS: Hematocrit 54.3 % (42.0-52.0); Hemoglobin 17.5 g/dL (14.0-18.0); Mean Corpuscular HGB Conc 32.2 g/dl (32-36); Mean Corpuscular Hemoglobin 31.5 pg (26-34); Mean Corpuscular Volume 97.8 fl (80-100); Mean Platelet Volume 10.8 fl (7.4-10.4); Platelet Count Result 227 k/mm3 (150-375); Red Blood Count 5.55 M/mm3 (4.6-6.20); Red Cell Distribution Width 12.8 % (11.5-14.5); White Blood Count 9.4 K/mm3 (4.5-10.0)
[2024-10-07 14:03] LABS: Alanine Aminotransferase 45 U/L (6-50); Albumin Level 4.4 g/dL (3.5-5.1); Alkaline Phosphatase 77 U/L (38-126); Anion Gap 6 mmol/L (4-12); Aspartate Amino Transferase 39 U/L (17-59); Bilirubin,Total 0.7 mg/dL (0.2-1.3); Blood Urea Nitrogen 18 mg/dL (9-20); Calcium 9.3 mg/dL (8.4-10.2); Carbon Dioxide 27 mmol/L (22-30); Chloride 105 mmol/L (98-107); Estimated Glomerular Filt Rate > 60; Glucose 157 mg/dL (65-110); Potassium 4.3 mmol/L (3.4-5.0); Sodium 138 mmol/L (137-145); Total Protein 7.2 g/dL (6.3-8.2)
[2024-10-07 14:59] LABS: Prostate Specific Antigen 0.3 ng/mL (< OR = 4.0)
== END 2024-10-07 07:42 | disposition home or self-care (01) ==
LOC: ANHLAB 07:43
PROVIDERS: PCP Family Medicine; Visit Provider Family Medicine
DX: E11.65 Type 2 diabetes mellitus with hyperglycemia (principal); I10 Essential (primary) hypertension; R53.83 Other fatigue; R56.9 Unspecified convulsions; Z12.5 Encounter for screening for malignant neoplasm of prostate
CPT/HCPCS: 36415; 80053; 84153; 85027; G0103

== ENCOUNTER 2024-12-08 07:47 | Outpatient (CLI) | payer MEDICARE, SELFPAY ==
--- OUTSIDE RECORDS SUMMARY | 2024-12-08 07:53 | XMS_ITS | Referral Summary ---
Author Organization [facility] Address [address] [place] [address] Care Team Providers Care Community Relations Liaison Name Role Phone Jaun Anderson DO Primary Care Provider [phone] Allergies Active Allergy Reactions Criticality Noted Date [...] 10/17/2018 Assessment & Plan (05/27/2020 10:26 AM SUPERVISOR ADVICE): Goal of treatment , LDL cholesterol less [...] pharmacy Assessment & Plan (06/30/2019 10:53 AM SUPERVISOR ADVICE): Hypertriglyceridemia continues but improved. Continue statin, fibrate [...] 01/04/2017 Assessment & Plan (05/27/2020 10:26 AM SUPERVISOR ADVICE): Goal blood pressure is less than 140/85 [...] plan. Assessment & Plan (06/30/2019 10:53 AM SUPERVISOR ADVICE): Controlled on current medications. Continue plan. Assessment & Plan (01/23/2019 4:50 PM CDT): Controlled on current medications. Continue plan. Assessment & Plan (06/26/2018 1:22 PM SUPERVISOR ADVICE): Controlled on current medications. Assessment & Plan [...] 01/04/2017 Assessment & Plan (06/26/2018 1:22 PM SUPERVISOR ADVICE): Hypertriglyceridemia with remote hx pancreatitis. Needs to [...] 12/05/2016 Assessment & Plan (04/16/2018 10:36 AM SUPERVISOR ADVICE): Your Hba1c today was: Lab Results Component [...] 12/05/2016 Assessment & Plan (05/27/2020 10:23 AM SUPERVISOR ADVICE): Hba1c was Lab Results Component Value Date [...] finger. Assessment & Plan (06/30/2019 11:04 AM SUPERVISOR ADVICE): A1c increased to 7.7. However reports FBG [...] goal hba1c is under 7.0 to prevent terminal gauger supervisor diabetes complications ( eye , kidney and [...] CGMS Assessment & Plan (06/26/2018 1:24 PM SUPERVISOR ADVICE): Will not change medication at th is [...] on file Legal Sex Male 8:44 PM SUPERVISOR ADVICE Gender Identity Not on file Sexual Orientation Not on file Last Filed Vital Signs Vital Sign Reading Time Taken Comments Blood Pressure 121/81 12/01/2021 2:46 PM CDT Pulse 77 12/01/2021 2:46 PM CDT Temperature 36.2 C (97.1 F) 11/06/2019 8:32 AM CDT Respiratory Rate 12 05/27/2020 9:34 AM SUPERVISOR ADVICE Oxygen Saturation - - Inhaled Oxygen Concentration - - Weight 94.6 kg (208 lb 9.6 oz) 05/27/2020 9:34 A M SUPERVISOR ADVICE Height 175.3 cm (5' 9.02) 05/27/2020 9:34 AM CS T Body Mass Index 30.79 05/27/2020 9:34 AM SUPERVISOR ADVICE Plan of Treatment Not on file Insurance [facility] MEDICARE AETNA MEDICARE GOLD AETNA MEDICARE GOLD Care Teams Community Relations Liaison Relationship Specialty Start Date End Date Jaun Anderson DO PCP - General Internal Medicine 09/20/17
--- OUTSIDE RECORDS SUMMARY | 2024-12-08 07:53 | XMS_ITS | Clinical Summary ---
Author Organization [facility] Address [address] [place] [address] Care Team Providers Care Chandelier Maker Name Role Phone Jaun Anderson DO Primary Care Provider [phone] Allergies Active Allergy Reactions Criticality Noted Date [...] 10/17/2018 Assessment & Plan (05/27/2020 10:26 AM HAT BLOCKING MACHINE OPERATOR): Goal of treatment , LDL cholesterol less [...] pharmacy Assessment & Plan (06/30/2019 10:53 AM HAT BLOCKING MACHINE OPERATOR): Hypertriglyceridemia continues but improved. Continue statin, fibrate [...] 01/04/2017 Assessment & Plan (05/27/2020 10:26 AM HAT BLOCKING MACHINE OPERATOR): Goal blood pressure is less than 140/85 [...] plan. Assessment & Plan (06/30/2019 10:53 AM HAT BLOCKING MACHINE OPERATOR): Controlled on current medications. Continue plan. Assessment & Plan (01/23/2019 4:50 PM CDT): Controlled on current medications. Continue plan. Assessment & Plan (06/26/2018 1:22 PM HAT BLOCKING MACHINE OPERATOR): Controlled on current medications. Assessment & Plan [...] 01/04/2017 Assessment & Plan (06/26/2018 1:22 PM HAT BLOCKING MACHINE OPERATOR): Hypertriglyceridemia with remote hx pancreatitis. Needs to [...] 12/05/2016 Assessment & Plan (04/16/2018 10:36 AM HAT BLOCKING MACHINE OPERATOR): Your Hba1c today was: Lab Results Component Value Date HGBA1C 7.7 04/16/2018 meaning a 3 month average sugar of : 170 Your goal hba1c is under 7.0 to prevent alf diabetes complications ( eye , kidney and [...] 12/05/2016 Assessment & Plan (05/27/2020 10:23 AM HAT BLOCKING MACHINE OPERATOR): Hba1c was Lab Results Component Value Date [...] finger. Assessment & Plan (06/30/2019 11:04 AM HAT BLOCKING MACHINE OPERATOR): A1c increased to 7.7. However reports FBG [...] goal hba1c is under 7.0 to prevent dedicated intermodal truck driver diabetes complications ( eye , kidney and [...] CGMS Assessment & Plan (06/26/2018 1:24 PM HAT BLOCKING MACHINE OPERATOR): Will not change medication at th is [...] on file Legal Sex Male 8:44 PM HAT BLOCKING MACHINE OPERATOR Gender Identity Not on file Sexual Orientation Not on file Obstetrics History Last Filed Vital Signs Vital Sign Reading Time Taken Comments Blood Pressure 121/81 12/01/2021 2:46 PM CDT Pulse 77 12/01/2021 2:46 PM CDT Temperature 36.2 C (97.1 F) 11/06/2019 8:32 AM CDT Respiratory Rate 12 05/27/2020 9:34 AM HAT BLOCKING MACHINE OPERATOR Oxygen Saturation - - Inhaled Oxygen Concentration - - Weight 94.6 kg (208 lb 9.6 oz) 05/27/2020 9:34 A M HAT BLOCKING MACHINE OPERATOR Height 175.3 cm (5' 9.02) 05/27/2020 9:34 AM CS T Body Mass Index 30.79 05/27/2020 9:34 AM HAT BLOCKING MACHINE OPERATOR Plan of Treatment Not on file Insurance [facility] MEDICARE AETNA MEDICARE GOLD AET MEDICARE GOLD Care Teams Chandelier Maker Relationship Specialty Start Date End Date Jaun Anderson DO PCP - General Internal Medicine 09/20/17
--- OUTSIDE RECORDS SUMMARY | 2024-12-08 07:53 | XMS_ITS | Clinical Summary ---
Author Organization [facility] Address [address] [place] [address] Care Team Providers Care Crack Off Person Name Role Phone Unavailable Primary Care Provider Unavailabl e Source Comments [facility],non-owned Affiliates and Associated Physician Practices is amultiple site organization consisting of ambulatory clinics and hospital sitesin [place], [place], [place] and [place]. This disclosure is being madepursuant to the Care Everywhere program and may not contain all information available regarding this patient. Last updated [facility] [employer] Allergies Active Allergy Reactions Criticality Noted Date [...] 6 Active vitamin D, ergocalciferol , (DRISDOL) 84531 UNITS capsule Take 50,000 Units by mouth every 7 days 6 Active gabapentin (NEURONTIN) 400 MG capsule Take 400 mg by mouth 3 times daily Active exenatide ER (BYDUREON) 2 MG injectionIndic ations:Type 2 Diabetes Mellitus Inject 2 mg subcutaneously every 7 days Reasons: Type 2 Diabetes 6 Active [place]-3 Fatty Acids (FISH OIL) 1200 MG Take 2 Tabs by mouth once daily Active Saw [place] 450 MG Take 1 Cap by mouth [...] on file Legal Sex Male 10:10 AM CLINICAL DIETETIC TECHNICIAN Gender Identity Not on file Sexual Orientation Not on file Last Filed Vital Signs Vital Sign Reading Time Taken Comments Blood Pressure 125/74 07/14/2015 12:23 PM CLINICAL DIETETIC TECHNICIAN Pulse 104 07/14/2015 12:23 PM CLINICAL DIETETIC TECHNICIAN Temperature 37.2 C (98.9 F) 07/14/2015 12:23 PM CLINICAL DIETETIC TECHNICIAN Respiratory Rate 16 07/14/2015 12:23 PM CLINICAL DIETETIC TECHNICIAN Oxygen Saturation 95% 07/14/2015 12:24 PM CLINICAL DIETETIC TECHNICIAN Inhaled Oxygen Concentration - - Weight 93.4 kg (206 lb) 07/08/2015 8:54 AM CLINICAL DIETETIC TECHNICIAN Height 171.5 cm (5' 7.5) 07/08/2015 8:54 AM CLINICAL DIETETIC TECHNICIAN Body Mass Index 31.79 07/08/2015 8:54 AM CLINICAL DIETETIC TECHNICIAN Plan of Treatment Health Maintenance Due Date [...] season) 2024 DEPRESSION SCREENING 05/07/2024 INFLUENZA VACCINE (#1) 2025 Respiratory Syncytial Virus (RSV) Vaccine Pt: [...] this topic Medical Devices Implanted Type Area Ben Day Artist Device Identifier Shelf Expiration Date Model / Serial / Lot 10ml Floseal Implanted:Qty: 1 on 07/08/2015 by Catrachito Pate MD at [facility] Spine Lumbar [employer] 11/03/2016 [id number] / / [id number] Putty Oziel-3 Dbm 5cc Implanted:Qty: 1 on 07/08/2015 by Catrachito Pate MD at [facility] Spine Lumbar [employer] 12/06/2015 02-5000-05 0 / / [id number] [facility] - [id number] Implanted:Qty: 1 on 07/08/2015 by Catrachito Pate MD at [facility] Spine Lumbar [employer] 06/22/2016 [id number] / [id number] / 30mm 8degree 10mm Interbody Spacer Implanted:Qty: 1 on 07/08/2015 by Catrachito Pate MD at [facility] Spine Lumbar [employer] 03/28/2018 34-A30-10- 8 / / [id number] 30mm X 16mmx 8degree Interbody Spacer Implanted:Qty: 1 on 07/08/2015 by Catrachito Pate MD at [facility] Lumbar [employer] 07/05/2016 34-A30-16- 8 / / [id number] [facility] - [id number] Implanted:Qty: 1 on 07/08/2015 by Catrachito Pate MD at [facility] Lumbar [employer] 06/24/2016 [id number] / [id number] / Putty Oziel-3 Dbm 5cc Implanted:Qty: 1 on 07/08/2015 by Catrachito Pate MD at [facility] Spine Lumbar [employer] 01/06/2016 0 / / [id number] Sc[facility] Lumbar Implanted:Qty: 6 on 07/08/2015 by Catrachito Pate MD at [facility] Lumbar [employer] W / / Description:from sterile albin maribel instrument tray. posterior Scrw Perc Mis Implanted:Qty: 4 on 07/08/2015 by Catrachito Pate MD at [facility] Spine Lumbar [employer] PA-65-4 5 / / -65-4 5 Description:from sterile albin maribel instrument tray. posterior Scrw Perc Mis Implanted:Qty: 1 on 07/08/2015 by Catrachito Pate MD at [facility] Spine Lumbar [employer] PA-75-5 0 / / -75-5 0 Description:from sterile albin maribel instrument tray. posterior David Dynamic Or Mis Implanted:Qty: 2 on 07/08/2015 by Catrachito Pate MD at [facility] Lumbar [employer] -55-NH-6 5 / -NH-6 5 Description:from sterile albin maribel instrument tray Explanted Type Area Ben Day Artist Device Identifier Shelf Expiration Date Model / Serial / Lot Scrw Perc Mis Explanted:Qty: 1 on 07/08/2015 at [facility] Lumbar [employer] -PA-75-4 5 / / PA-75-4 5 Description:from sterile albin maribel instrument tray. posterior Guidewires Explanted:Qty: 4 on 07/08/2015 at [facility] Lumbar [employer] [id number] / / Description:from sterile albin maribel instrument tray. Insurance [facility] Address: [address] [place] [address] MEDICARE [facility] Address: [address] [address] [place] [address] MEDICARE Advance Directives * Full Code (Latest Code Status on File) Date Activated Date Inactivated Comments 07/08/2015 8:22 PM 07/14/2015 2:06 PM
--- OUTSIDE RECORDS SUMMARY | 2024-12-08 07:53 | XMS_ITS | Patient Health Record ---
Author Organization [facility] Outside Sales Account [facility] Address [address] [place] [address] Support Name Relationship Address Phone Twin Roldan Guarantor Unknown [phone] Reason For Referral No Information Plan Of Treatment No Information Insurance Providers Payer Name Payer Address Payer Phone Subscriber Number Group Number Insured Name Patient Relationship to Insured Coverage Start Date Coverage End Date Medicare of [place] [address] [address] [place] [address] [id number] Twin Roldan Self - patient is the insured 4
--- OUTSIDE RECORDS SUMMARY | 2024-12-08 07:53 | XMS_ITS | Clinical Summary ---
Author Organization [facility] Address [address] [place] [address] Care Team Providers Care Home Performance Consultant Name Role Phone Jaun Anderson DO Primary Care Provider [phone] Allergies Active Allergy Reactions Criticality Noted Date Comments Meperidine Nausea and Vomiting 09/19/2021 Metformin Unknown High 09/19/2021 Pt states it almost killed him; UNKNOWN reaction type Nsaids Nausea and Vomiting 09/19/2021 Medications lisinopril 20 MG tablet Take 20 mg by mouth daily. Active Dapagliflozin Propanediol (FARXIGA) 10 MG Tab Take 10 mg by mouth daily. Active pantoprazole EC 40 MG tablet Take 40 mg by mouth daily. Active metoprolol tartrate 50 MG tablet Take 50 mg by mouth daily. Active metoprolol tartrate 25 MG tablet Take 25 mg by mouth nightly. Active fenofibrate 160 MG tablet Take 160 mg by mouth daily. Active atorvastatin 10 MG tablet Take 10 mg by mouth daily. Active vitamin D3, cholecalciferol, 1000 UNIT Tab tablet Take 1 tablet by mouth daily. Active Turmeric 400 MG Cap Take 400 mg by mouth daily. Active Insulin Degludec (TRESIBA) 100 UNIT/ML Solution Inject 28 Units into the skin nightly. Active insulin lispro 100 UNIT/ML injection (VIAL) Inject 10-14 Units into the skin 3 (three) times daily before meals. Sliding scale per patient based on blood sugar. Sometimes uses Novlog instead depending on what he has available. Active multi vitamin/minerals tablet Take 1 tablet by mouth daily. Active gabapentin 400 MG capsule Take 1 capsule (400 mg total) by mouth 3 (three) times daily. 90 capsule Active levETIRAcetam 500 MG tablet Take 1 tablet (500 mg total) by mouth 2 (two) times daily. 180 tablet 2 Active Active Problems Problem Noted Date Diagnosed Date Acute encephalopathy 09/19/2021 Hypertension Hypercholesteremia Diabetes mellitus ([facility]) Tobacco abuse Family History Medical History Relation Comments Arthritis Brother 1 Heart Disease Brother 1 Hypertension Brother 1 Arthritis Brother 2 Heart Disease Father Stroke Father Vision loss Father Dementia Mother Diabetes Mother Diverticulitis Mother Relation Status Comments Brother 1 Alive Brother 2 Alive Father Alive Mother Alive Sister Alive Social History Tobacco Use Types Packs/Day Years Used Date Smoking Tobacco: Every Day Cigarettes 0.5 5 Smokeless Tobacco: Never Alcohol Use Standard Drinks/Week Comments Yes 0 (1 standard drink = 0.6 oz pur e alcohol) socially Sex and Gender Information Value Date Recorded Sex Assigned at Not on file Legal Sex Male 1:39 PM CDT Gender Identity Not on file Sexual Orientation Not on file Last Filed Vital Signs Vital Sign Reading Time Taken Comments Blood Pressure 116/74 09/21/2021 12:23 PM CDT Pulse 60 09/21/2021 12:23 PM CDT Temperature 36.6 C (97.9 F) 09/21/2021 12:23 PM CDT Respiratory Rate 20 09/21/2021 12:23 PM CDT Oxygen Saturation 97% 09/21/2021 12:23 PM CDT Inhaled Oxygen Concentration - - Weight 90.9 kg (200 lb 6.4 oz) 09/21/2021 4:29 A M CDT Height 182.9 cm (6') 09/18/2021 1:40 PM CDT Body Mass Index 27.18 09/18/2021 1:40 PM CDT Plan of Treatment Health Maintenance Due Date Last Done Comments Colorectal Cancer Screening Colonoscopy (10 Years) 1960 Kidney Health Evaluation 1960 Annual Physical 1963 Diabetes: Retinopathy Eye Exam 1978 Hepatitis C 1978 DTaP, Tdap and Td Vaccines ( 1 - Tdap) 1979 Pneumococcal Vaccine: 50+ Ye ars (2 of 2 - PCV) 03/15/2008 03/15/2007 Zoster Vaccines (1 of 2) 2010 RSV Immunization or 60+ Years (1 - Risk 60-74 years 1-dose series) 2020 Lipid Panel 05/27/2021 05/27/2020 Hemoglobin A1C 03/23/2022 09/20/2021 COVID-19 Vaccine (2023-2 5 season) 2024 Meningococcal B Vaccine Aged Out No l onger eligible based on patient's age to complete this topic Meningococcal Vaccine Aged Out No yan jolynn eligible based on patient's age to complete this topic RSV Immunizations Under 20 Months Aged Out No longer eligible based on patient's age to complete this topic Procedures Procedure Name Priority Date/Time Associated Diagnosis Comments HEMOGLOBIN, GLYCOSYLATED Routine 09/20/2021 3:45 AM CDT from Last 3 Months or Most Recently Relevant to Health Maintenance Results * (ABNORMAL) HEMOGLOBIN, GLYCOSYLATED (09/20/2021 3:45 AM CDT) HGB A1C 8.4(H) <5.7 % 09/20/2021 11:56 AM CDT [facility] Comment: ADA GUIDELINES 2010 5.7 TO 6.4% INCREASED RISK OF DIABETES > OR = 6.5% CONSISTENT WITH DIABETES ESTIMATED AVG GLUCOSE 194 mg/dL 09/20/2021 11:56 AM CDT [facility] 09/20/2021 3:45 AM CDT Sarai Hicks NP LABORATORY Final Resu lt [facility] [address] [place] [address], from Last 3 Months or Most Recently Relevant to Health Maintenance Insurance [employer] Advance Directives * Full Code (Latest Code Status on File) Date Activated Date Inactivated Comments 09/19/2021 6:59 PM 09/21/2021 3:37 PM Care Teams Home Performance Consultant Relationship Specialty Start Date End Date Jaun Anderson DO [address] [place] [id number] PCP - General INTERNAL MEDICINE 09/18/21
[2024-12-08 08:49] LABS: Hematocrit 50.8 % (42.0-52.0); Hemoglobin 16.5 g/dL (14.0-18.0); Immature Granulocyte Percent A 5.4 % (0-0.5); Lymphocytes Absolute Auto 2.26 K/mm3 (0.9-3.2); Mean Corpuscular HGB Conc 32.5 g/dl (32-36); Mean Corpuscular Hemoglobin 32.0 pg (26-34); Mean Corpuscular Volume 98.6 fl (80-100); Nucleated Red Blood Cells Absolute Auto 0.000 K/mm3 (0.0-0.012); Nucleated Red Blood Cells Perc 0.0 % (0.0-0.2); Platelet Count Result 217 k/mm3 (150-375); Red Blood Count 5.15 M/mm3 (4.6-6.20); White Blood Count 9.4 K/mm3 (4.5-10.0)
== END 2024-12-08 07:48 | disposition home or self-care (01) ==
PROVIDERS: PCP Family Medicine; Visit Provider Family Medicine
DX: E11.65 Type 2 diabetes mellitus with hyperglycemia (principal)
CPT/HCPCS: 36415; 85025

== ENCOUNTER 2025-04-14 07:15 | Outpatient (CLI) | payer MEDICARE, SELFPAY ==
[2025-04-14 08:12] LABS: Alanine Aminotransferase 73 U/L (6-50); Albumin Level 4.3 g/dL (3.5-5.1); Alkaline Phosphatase 74 U/L (38-126); Anion Gap 5 mmol/L (4-12); Aspartate Amino Transferase 53 U/L (17-59); Bilirubin,Total 0.5 mg/dL (0.2-1.3); Blood Urea Nitrogen 21 mg/dL (9-20); Calcium 9.3 mg/dL (8.4-10.2); Carbon Dioxide 29 mmol/L (22-30); Chloride 104 mmol/L (98-107); Cholesterol 151 mg/dL (0-200); Estimated Glomerular Filt Rate > 60; Glucose 163 mg/dL (65-110); HDL Direct 33 mg/dL; Potassium 4.5 mmol/L (3.4-5.0); Sodium 138 mmol/L (137-145); Total Protein 7.2 g/dL (6.3-8.2); Triglycerides 289 mg/dL (<150)
[2025-04-14 08:50] LABS: MALB Creatinine Ratio 71.2 mg/g (0-30)
[2025-04-14 08:51] LABS: Thyroid Stimulating Hormone 1.150 uIU/mL (0.465-4.680)
[2025-04-14 09:00] LABS: Free T4 Free Thyroxine 1.08 ng/dL (0.78-2.19)
[2025-04-14 09:10] LABS: Vitamin B12 799.0 pg/mL (239-931)
== END 2025-04-14 07:16 | disposition home or self-care (01) ==
PROVIDERS: PCP Family Medicine; Visit Provider Nurse Practitioner Family
DX: E78.2 Mixed hyperlipidemia (principal); E11.65 Type 2 diabetes mellitus with hyperglycemia; I10 Essential (primary) hypertension; E11.42 Type 2 diabetes mellitus with diabetic polyneuropathy; Z79.899 Other long term (current) drug therapy
CPT/HCPCS: 36415; 80053; 80061; 82043; 82306; 82607; 84439; 84443